=== PATIENT | female | born 1965 | race Caucasian/White ===

== ENCOUNTER → 2018-02-15 14:27 | Outpatient (CLI) | payer OTHER, SELFPAY ==
[2018-02-21 11:59] LABS: HPV Reflexed? NOT INDICATED
== END ==
PROVIDERS: Family Provider Family Medicine; PCP Family Medicine; Visit Provider Obstetrics & Gynecology
DX: Z12.4 Encounter for screening for malignant neoplasm of cervix (principal)
CPT/HCPCS: 88175; G0145

== ENCOUNTER → 2018-10-09 11:32 | Outpatient (CLI) | payer OTHER, SELFPAY ==
--- NOTE | 2018-10-09 11:36 | BI_ITS ---
MAMMOGRAPHY - BILATERAL SCREENING REASON FOR EXAM: Female, 53 years old. Routine annual screening examination. PERTINENT HISTORY: Non-contributory. TECHNIQUE: Digital bilateral breast jian (3D mammographic acquisition) in the CC and MLO projections. 2-D mediolateral oblique (MLO) and craniocaudad (CC) views of both breasts were obtained. CAD: Full Field Digital Mammography with Computer Added Detection was performed. COMPARISON: Comparison is made with prior study dated July 18, 2017. FINDINGS: Breast Composition: There are scattered areas of fibroglandular density. There are no dominant masses or suspicious calcifications. Stable inversion of the right nipple. No other significant abnormalities are identified. There has been no significant change since the prior study. BI/SCREENING MAMM (CAD), BILAT IMPRESSION: Stable bilateral screening mammogram. Yearly follow-up mammogram recommended. (A) ASSESSMENT CATEGORY: BIRADS Category 2: Benign. A letter regarding these results will be sent to the patient by the facility within 30 days. Approximately 10% of breast cancers are not detected by mammography. A normal mammogram should not delay biopsy of a clinically suspicious abnormality. [id number] Electronically Signed: Alfredo Patel MD at 14:02 EST Tel [phone], Service support ,
== END ==
PROVIDERS: Family Provider Family Medicine; PCP Family Medicine; Visit Provider Obstetrics & Gynecology
DX: Z12.31 Encounter for screening mammogram for malignant neoplasm of breast (principal)
CPT/HCPCS: 77063; 77067

== ENCOUNTER → 2019-04-12 | Outpatient (CLI) | payer OTHER, SELFPAY ==
[2019-04-12 11:51] LABS: Hematocrit 39.7 % (37-47); Hemoglobin 12.8 g/dl (12.0-15.0); Mean Corp Hgb Conc 32.2 g/gl (32-36); Mean Corpuscular Hgb 26.4 pg (27.0-32.0); Mean Corpuscular Volume 81.9 fL (81-99); Mean Platelet Vol. 9.6 fl (6.2-12.0); Platelet Count 270 K/mm3 (150-450); RBC Distribution Width CV 14.9 % (11.6-14.6); RBC Distribution Width SD 44.5 fl (35.1-43.9); Red Blood Count 4.85 M/mm3 (4.2-5.4); White Blood Count 7.6 K/mm3 (4.4-11.0)
[2019-04-12 11:54] LABS: Scan Indicated on CBC? Y/N NO
[2019-04-12 12:18] LABS: Hemoglobin A1c 6.2 % (4.2-6.3)
[2019-04-12 12:23] LABS: Anion Gap 6 (5-15); Chloride 105 mmol/L (98-107); Cholesterol 189 mg/dL (200); EST Glomerular Filtration Rate 80 mL/min (>60); Est Glom Filt Rate - Afr Amer 97 mL/min (>60); High Density Lipoprotein 66 mg/dL; Sodium Level 141 mmol/L (136-145); Thyroid Stim Hormone (TSH) 2.05 uIU/mL (0.358-3.74); Triglycerides 80 mg/dL; Very Low Density Lipoprotein 16 mg/dL (5-40)
== END | disposition home or self-care (01) ==
LOC: LAB 11:15
PROVIDERS: Family Provider Family Medicine; PCP Family Medicine; Referring Provider Obstetrics & Gynecology; Visit Provider Obstetrics & Gynecology
DX: E66.01 Morbid (severe) obesity due to excess calories (principal); Z79.899 Other long term (current) drug therapy
CPT/HCPCS: 36415; 80051; 80061; 82565; 83036; 84443; 85027

== ENCOUNTER 2019-05-28 13:10 | Outpatient (RCR) | payer OTHER, SELFPAY | END 2019-05-28 23:59 | disposition home or self-care (01) | LOC: NS 13:10 | PROVIDERS: Family Provider Family Medicine; PCP Family Medicine; Visit Provider Orthopaedic Surgery | DX: E66.01 Morbid (severe) obesity due to excess calories (principal); Z68.43 Body mass index [BMI] 50.0-59.9, adult; Z71.3 Dietary counseling and surveillance | CPT/HCPCS: 97802 ==

== ENCOUNTER → 2019-10-25 12:52 | Outpatient (CLI) | payer OTHER, SELFPAY ==
--- NOTE | 2019-10-25 12:54 | BI_ITS ---
MAMMOGRAPHY - BILATERAL SCREENING 3-D TOMOSYNTHESIS REASON FOR EXAM: Female, 54 years old. PERTINENT HISTORY: No significant family history. TECHNIQUE: 2-D mammograms and 3-D Tomosynthesis of the breast (s) were performed. CAD was performed. COMPARISON: October 09, 2018 FINDINGS: The breast composition is of scattered fibroglandular tissue No dense spiculated masses or suspicious microcalcifications are identified. No architectural distortion is identified. There is no skin thickening or nipple retraction. The densities that are seen in inferior aspect of both breasts are located within the skin or just subcutaneous were present before apparently benign There has been no significant change since the prior study October 09, 2018 BI/SCREEN MAMM (CAD) W/KAYLEY BILAT IMPRESSION: No mammographic signs of malignancy. Routine yearly mammograms recommended. BIRADS 2. FOLLOW UP RECOMMENDATION: Yearly follow up mammogram recommended. (A) Approximately 10% of breast cancers are not detected by mammography. A normal mammogram should not delay biopsy of a clinically suspicious abnormality. Electronically Signed: Arpita Boyle, at 15:48 EST Tel , Service support ,
== END ==
PROVIDERS: Family Provider Family Medicine; PCP Family Medicine; Referring Provider Obstetrics & Gynecology; Visit Provider Obstetrics & Gynecology
DX: Z12.31 Encounter for screening mammogram for malignant neoplasm of breast (principal)
CPT/HCPCS: 77063; 77067

== ENCOUNTER → 2020-02-13 | Outpatient (CLI) | payer OTHER, SELFPAY | END | disposition home or self-care (01) | PROVIDERS: PCP Family Medicine; Visit Provider Family Medicine | DX: B37.9 Candidiasis, unspecified (principal) | CPT/HCPCS: 87070; 87077; 87186; 87205 ==

== ENCOUNTER → 2020-08-12 | Outpatient (CLI) | payer OTHER, SELFPAY ==
[2020-08-18 15:08] LABS: HPV Reflexed? NOT INDICATED
== END | disposition home or self-care (01) ==
LOC: LABSPEC 14:47
PROVIDERS: PCP Family Medicine; Visit Provider Obstetrics & Gynecology
DX: Z12.4 Encounter for screening for malignant neoplasm of cervix (principal)
CPT/HCPCS: 88175; G0145

== ENCOUNTER → 2020-11-25 12:35 | Outpatient (CLI) | payer OTHER, SELFPAY ==
--- NOTE | 2020-11-25 12:37 | BI_ITS ---
MAMMOGRAPHY - BILATERAL SCREENING REASON FOR EXAM: Female, 55 years old. Routine annual screening examination. PERTINENT HISTORY: Non-contributory. TECHNIQUE: Digital bilateral breast kayley (3D mammographic acquisition) in the CC and MLO projections. 2-D mediolateral oblique (MLO) and craniocaudad (CC) views of both breasts were obtained. CAD: Full Field Digital Mammography with Computer Added Detection was performed. COMPARISON: Comparison is made with prior study dated 10/25/2019 and 10/09/2018. FINDINGS: Breast Composition: The breasts are almost entirely fatty. There are no dominant masses or suspicious calcifications. Stable inversion of the right nipple. No other significant abnormalities are identified. There has been no significant change since the prior study. BI/SCREEN MAMM (CAD) W/KAYLEY BILAT IMPRESSION: Stable bilateral screening mammogram. Yearly follow-up mammogram recommended. (A) ASSESSMENT CATEGORY: BIRADS Category 2: Benign. A letter regarding these results will be sent to the patient by the facility within 30 days. Approximately 10% of breast cancers are not detected by mammography. A normal mammogram should not delay biopsy of a clinically suspicious abnormality. [id number] Electronically Signed: Alfredo Patel, at 10:07 EST , Service support ,
== END ==
PROVIDERS: PCP Family Medicine; Referring Provider Obstetrics & Gynecology; Visit Provider Obstetrics & Gynecology
DX: Z12.31 Encounter for screening mammogram for malignant neoplasm of breast (principal)
CPT/HCPCS: 77063; 77067

== ENCOUNTER 2021-12-16 12:47 | Outpatient (CLI) | payer OTHER, SELFPAY ==
[2021-12-16 13:01] VITALS: BP 149/89; PULSE 95; RESP 16; TEMP 36.9; O2SAT 95; BMI 61.5
[2021-12-16 13:38] VITALS: BP 131/81; PULSE 81; RESP 16; TEMP 37.3; O2SAT 96
[2021-12-16 14:34] VITALS: BP 153/95; PULSE 84; RESP 16; TEMP 36.8; O2SAT 96
== END 2021-12-16 23:59 | disposition home or self-care (01) ==
LOC: MS3OUT 12:48 → MS3 12:48
PROVIDERS: PCP Family Medicine; Referring Provider Nurse Practitioner Adult Health; Visit Provider Nurse Practitioner Adult Health
DX: Z23 Encounter for immunization (principal); U07.1 COVID-19
CPT/HCPCS: J7050; M0245; Q0245

== ENCOUNTER 2022-03-18 10:20 | Outpatient (CLI) | payer OTHER, SELFPAY ==
--- NOTE | 2022-03-18 10:22 | BI_ITS ---
MAMMOGRAPHY - BILATERAL SCREENING 3-D TOMOSYNTHESIS REASON FOR EXAM: Female, 56 years old. SCREENING PERTINENT HISTORY: No significant family history. TECHNIQUE: 2-D mammograms and 3-D Tomosynthesis of the breast (s) were performed. CAD was performed. COMPARISON: 11/25/2020 FINDINGS: The breast composition is composed of scattered fibroglandular density. Scattered benign calcifications are seen. No dense spiculated masses or suspicious microcalcifications are identified. No architectural distortion is identified. There is no skin thickening or retraction. There has been no significant change since the prior study. BI/SCRN MAMM (CAD)W/KAYLEY BILAT IMPRESSION: No mammographic signs of malignancy. Routine yearly mammograms recommended. ASSESSMENT CATEGORY: BIRADS Category 1: Negative. A letter regarding these results will be sent to the patient by the facility within 30 days. FOLLOW UP RECOMMENDATION: Yearly follow up mammogram recommended. (A) Approximately 10% of breast cancers are not detected by mammography. A normal mammogram should not delay biopsy of a clinically suspicious abnormality. Electronically Signed: Juan Hoang MD at 13:57 EDT ,
== END 2022-03-18 23:59 | disposition home or self-care (01) ==
PROVIDERS: PCP Family Medicine; Referring Provider Obstetrics & Gynecology; Visit Provider Obstetrics & Gynecology
DX: Z12.31 Encounter for screening mammogram for malignant neoplasm of breast (principal)
CPT/HCPCS: 77063; 77067

== ENCOUNTER → 2022-08-31 | Outpatient (CLI) | payer OTHER, SELFPAY ==
[2022-09-06 16:55] LABS: ALB/GLOB Ratio 0.9 RATIO (0.9-2.4); AST(SGOT) 17 U/L (15-37); Alanine Aminotransfer ALT/SGPT 23 U/L (13-56); Albumin, Serum 3.4 g/dL (3.2-5.0); Alkaline Phosphatase 27 U/L (45-117); Anion Gap 8 (5-15); BUN 20 mg/dL (7-18); BUN/Creat Ratio 26.9 RATIO (10-20); Chloride 106 mmol/L (98-107); Cholesterol 169 mg/dL (200); Creatinine, Serum 0.74 mg/dL (0.55-1.02); EST Glomerular Filtration Rate 86 mL/min (>60); Est Glom Filt Rate - Afr Amer 104 mL/min (>60); Globulin 3.9 g/dL (2.2-4.2); Glucose 46 mg/dL (74-106); High Density Lipoprotein 71 mg/dL; Potassium 4.6 mmol/L (3.5-5.1); Protein, Total 7.3 g/dL (6.4-8.2); Sodium Level 138 mmol/L (136-145); Thyroid Stim Hormone (TSH) 1.86 uIU/mL (0.358-3.74); Triglycerides 75 mg/dL; Very Low Density Lipoprotein 15 mg/dL (5-40)
== END | disposition home or self-care (01) ==
LOC: MTLAB 10:21 → MFPLAB 10:43
PROVIDERS: PCP Family Medicine; Referring Provider Family Medicine; Visit Provider Family Medicine
DX: R73.03 Prediabetes (principal)
CPT/HCPCS: 36415; 80053; 80061; 83036; 84443

== ENCOUNTER → 2023-01-03 | Outpatient (CLI) | payer OTHER, SELFPAY ==
--- NOTE | 2023-01-03 10:45 | MRI_ITS ---
STUDY: MRI LEFT MIDFOOT REASON FOR EXAM: Female, 57 years old. Numbness in foot. TECHNIQUE: Standardized fat and water weighted pulse sequences were obtained in all 3 orthogonal planes. COMPARISON: X-rays of the tibia and fibula dated August 2016. FINDINGS: Moderate arthrosis of the talonavicular joint. Moderate arthrosis of the subtalar joint. Moderate arthrosis of the navicular-cuneiform articulation. Mild arthrosis of the second and third tarsometatarsal articulations. Mild arthrosis of the calcaneocuboid articulation with a small joint effusion. Mild arthrosis of the cuboid-fourth metatarsal and cuboid fifth tarsometatarsal articulations. Normal soft tissues. MRI/Lower Ext/No Jt/w/o IMPRESSION: Diffuse osteoarthritic changes as described. No other abnormality. Electronically Signed: Gal Fulton, at 15:11 EST ,
== END | disposition home or self-care (01) ==
PROVIDERS: PCP Family Medicine; Referring Provider Podiatrist; Visit Provider Podiatrist
DX: M19.072 Primary osteoarthritis, left ankle and foot (principal); M79.672 Pain in left foot; G57.82 Other specified mononeuropathies of left lower limb
CPT/HCPCS: 73718

== ENCOUNTER → 2023-02-20 | Outpatient (CLI) | payer OTHER, SELFPAY ==
[2023-02-24 14:49] LABS: HPV APTIMA, High Risk Negative (Negative)
== END | disposition home or self-care (01) ==
LOC: WOBLAB 11:09
PROVIDERS: PCP Family Medicine; Visit Provider Student in an Organized Health Care Education/Training Program
DX: Z12.4 Encounter for screening for malignant neoplasm of cervix (principal)
CPT/HCPCS: 87624; 88175; G0145

== ENCOUNTER → 2023-04-06 | Outpatient (CLI) | payer OTHER, SELFPAY ==
--- NOTE | 2023-04-06 10:42 | BI_ITS ---
MAMMOGRAPHY - BILATERAL SCREENING REASON FOR EXAM: Female, 57 years old. Routine annual screening examination. PERTINENT HISTORY: Non-contributory. TECHNIQUE: Digital bilateral breast kayley (3D mammographic acquisition) in the CC and MLO projections. 2-D mediolateral oblique (MLO) and craniocaudad (CC) views of both breasts were obtained. CAD: Full Field Digital Mammography with Computer Added Detection was performed. COMPARISON: Comparison is made with prior study March 18, 2022 and November 25, 2020. FINDINGS: Breast Composition: The breasts are almost entirely fatty. There are no dominant masses or suspicious calcifications. Stable inversion of the right nipple. No other significant abnormalities are identified. There has been no significant change since the prior study. BI/SCRN MAMM (CAD)W/KAYLEY BILAT IMPRESSION: Stable bilateral screening mammogram. Yearly follow-up mammogram recommended. (A) ASSESSMENT CATEGORY: BIRADS Category 2: Benign. A letter regarding these results will be sent to the patient by the facility within 30 days. Approximately 10% of breast cancers are not detected by mammography. A normal mammogram should not delay biopsy of a clinically suspicious abnormality. [id number] Electronically Signed: Alfredo Patel MD at 12:12 EDT ,
== END | disposition home or self-care (01) ==
LOC: OPBI 10:41
PROVIDERS: PCP Family Medicine; Referring Provider Student in an Organized Health Care Education/Training Program; Visit Provider Student in an Organized Health Care Education/Training Program
DX: Z12.31 Encounter for screening mammogram for malignant neoplasm of breast (principal)
CPT/HCPCS: 77063; 77067

== ENCOUNTER 2023-08-31 10:07 | Outpatient (CLI) | payer OTHER, SELFPAY ==
[2023-08-31 13:23] LABS: ALB/GLOB Ratio 0.9 RATIO (0.9-2.4); AST(SGOT) 16 U/L (15-37); Alanine Aminotransfer ALT/SGPT 23 U/L (13-56); Albumin, Serum 3.3 g/dL (3.2-5.0); Alkaline Phosphatase 27 U/L (45-117); Anion Gap 8 (5-15); BUN 23 mg/dL (7-18); BUN/Creat Ratio 29.7 RATIO (10-20); Calcium,Total 8.8 mg/dL (8.5-10.1); Chloride 108 mmol/L (98-107); Cholesterol 170 mg/dL (200); Creatinine, Serum 0.77 mg/dL (0.55-1.02); EST Glomerular Filtration Rate 81 mL/min (>60); Est Glom Filt Rate - Afr Amer 98 mL/min (>60); Globulin 3.6 g/dL (2.2-4.2); Glucose 77 mg/dL (74-106); High Density Lipoprotein 54 mg/dL; Potassium 3.6 mmol/L (3.5-5.1); Protein, Total 6.9 g/dL (6.4-8.2); Sodium Level 139 mmol/L (136-145); Thyroid Stim Hormone (TSH) 1.76 uIU/mL (0.358-3.74); Triglycerides 66 mg/dL; Uric Acid 5.4 mg/dL (2.6-6.0); Very Low Density Lipoprotein 13 mg/dL (5-40)
[2023-08-31 14:03] LABS: Hemoglobin A1c 5.4 % (3.8-5.6)
[2023-08-31 14:52] LABS: Microalbumin,Random Urine 40.9 mg/L (NO RANGE EST.); Microalbumin:Creatinine Ratio 20.3 mg/g CRE (<30 mg/g CRE)
== END 2023-08-31 23:59 | disposition home or self-care (01) ==
LOC: MFPLAB 10:08
PROVIDERS: PCP Family Medicine; Visit Provider Family Medicine
DX: Z00.00 Encounter for general adult medical examination without abnormal findings (principal)
CPT/HCPCS: 36415; 80053; 80061; 82043; 82570; 83036; 84443; 84550

== ENCOUNTER → 2024-04-17 | Outpatient (CLI) | payer OTHER, SELFPAY ==
--- NOTE | 2024-04-17 10:32 | BI_ITS ---
MAMMOGRAPHY - BILATERAL SCREENING 3-D TOMOSYNTHESIS REASON FOR EXAM: Female, 58 years old. Screening for breast cancer PERTINENT HISTORY: No significant family history. TECHNIQUE: 2-D mammograms and 3-D Tomosynthesis of the breast (s) were performed. CAD was performed. COMPARISON: 04/06/2023 FINDINGS: The breast composition is composed of scattered fibroglandular density. Scattered benign calcifications are seen. No dense spiculated masses or suspicious microcalcifications are identified. No architectural distortion is identified. There is no skin thickening or retraction. There has been no significant change since the prior study. BI/SCRN MAMM (CAD)W/KAYLEY BILAT IMPRESSION: No mammographic signs of malignancy. Routine yearly mammograms recommended. ASSESSMENT CATEGORY: BIRADS Category 1: Negative. A letter regarding these results will be sent to the patient by the facility within 30 days. FOLLOW UP RECOMMENDATION: Yearly follow up mammogram recommended. (A) Approximately 10% of breast cancers are not detected by mammography. A normal mammogram should not delay biopsy of a clinically suspicious abnormality. Electronically Signed: Juan Hoang MD at 12:07 EDT ,
== END | disposition home or self-care (01) ==
PROVIDERS: PCP Family Medicine; Referring Provider Nurse Practitioner Women's Health; Visit Provider Nurse Practitioner Women's Health
DX: Z12.31 Encounter for screening mammogram for malignant neoplasm of breast (principal); Z78.0 Asymptomatic menopausal state
CPT/HCPCS: 36415; 77063; 77067; 82670; 83001

== ENCOUNTER → 2025-03-24 | Outpatient (CLI) | payer OTHER, SELFPAY ==
[2025-03-24 15:46] LABS: Absolute Lymphocyte Count 1.94 X10^3/uL (0.83-4.51); Absolute Neutrophil Count 4.8 X10^3/uL (2.0-7.7); Basophil# 0.03 X10^3/uL; Basophil% 0.4 % (0-1); Eosinophil# 0.16 X10^3/uL; Eosinophils% 2.2 % (0-5); Hematocrit 42.6 % (37-47); Hemoglobin 13.6 g/dL (12.0-15.0); Lymphocyte # 1.94 X10^3/ul (0.83-4.51); Lymphocyte % 26.4 % (19-41); Mean Corp Hgb Conc 31.9 g/dL (32-36); Mean Corpuscular Volume 87.7 fL (81-99); Monocyte% 5.4 % (0-10); NRBC Flagged by Analyzer 0 % (0-5); Neutrophil # 4.81 X10^3/uL (2.7-7.7); Neutrophil % 65.5 % (47-70); Platelet Count 317 K/mm3 (150-450); RBC Distribution Width CV 13.4 % (11.6-14.6); RBC Distribution Width SD 43.6 fl (35.1-43.9); Red Blood Count 4.86 M/mm3 (4.2-5.4); White Blood Count 7.4 K/mm3 (4.4-11.0)
[2025-03-24 16:23] LABS: ALB/GLOB Ratio 1.3 RATIO (0.9-2.4); AST(SGOT) 14 U/L (<=31); Alanine Aminotransfer ALT/SGPT 10 U/L (<=34); Albumin, Serum 4.1 g/dL (3.5-5.0); Alkaline Phosphatase 35 U/L (35-104); Anion Gap 10 (5-15); BUN 15 mg/dL (4-19); Calcium,Total 9.3 mg/dL (7.6-11.0); Carbon Dioxide 27.3 mmol/L (21.0-32.0); Chloride 102 mmol/L (98-108); EST Glomerular Filtration Rate 100 (>60); Globulin 3.1 g/dL (2.2-4.2); Glucose 88 mg/dL (70-99); Magnesium 2.3 mg/dL (1.5-2.2); Potassium 4.6 mmol/L (3.3-5.1); Protein, Total 7.2 g/dL (5.9-8.4); Sodium Level 140 mmol/L (133-145); Total Bilirubin 0.32 mg/dL (0.00-1.30)
== END | disposition home or self-care (01) ==
LOC: MFPLAB 11:35
PROVIDERS: PCP Family Medicine; Referring Provider Family Medicine; Visit Provider Family Medicine
DX: R00.2 Palpitations (principal)
CPT/HCPCS: 36415; 80053; 83735; 84443; 85025

== ENCOUNTER → 2025-05-19 | Outpatient (CLI) | payer OTHER, SELFPAY ==
--- NOTE | 2025-05-19 15:36 | BI_ITS ---
EXAM: SCRN MAMM (CAD)W/KAYLEY BILAT DATE: 05/19/2025 CLINICAL HISTORY: F, Age 59 y/o , SCREENING FOR BREAST CANCER BREAST CANCER RISK ASSESSMENT: Na TECHNIQUE: SCRN MAMM (CAD)W/KAYLEY BILAT COMPARISON: Prior exam(s) were compared FINDINGS: TISSUE DENSITY: The breast tissue is composed of scattered areas of fibroglandular density. Bilateral Breast Mammographic Findings: No suspicious masses, calcifications or other abnormalities are identified. BI/SCRN MAMM (CAD)W/KAYLEY BILAT IMPRESSION: No mammographic evidence of malignancy in either breast OVERALL FINAL ASSESSMENT BI-RADS 1: NEGATIVE. RECOMMEND ANNUAL MAMMOGRAPHIC SCREENING. RECOMMENDATION: Routine annual follow-up in 1 Year A letter with findings and recommendations will be mailed to the patient. Reading Location: [id number]
== END | disposition home or self-care (01) ==
PROVIDERS: PCP Family Medicine; Referring Provider Nurse Practitioner Women's Health; Visit Provider Nurse Practitioner Women's Health
DX: Z12.31 Encounter for screening mammogram for malignant neoplasm of breast (principal)
CPT/HCPCS: 77063; 77067

== ENCOUNTER → 2025-08-05 | Outpatient (CLI) | payer OTHER, SELFPAY ==
[2025-08-05 14:27] LABS: Mucous, Urine 0 SEEN /hpf (<or=2+)
[2025-08-05 17:40] LABS: Color, Urine Yellow (Yellow); Glucose, Dipstick Normal (Normal); Ketone-Dipstick Negative (Negative); Leukocyte Esterase-Dipstick Negative /ul (Negative); Nitrite-Dipstick Negative (Negative); Occult Blood-Urine 150 /ul (Negative); Protein-Dipstick 15 mg/dl (Negative); Specific Gravity, Urine 1.020 (1.002-1.030); Urine Bilirubin Dipstick Negative (Negative)
[2025-08-05 21:24] LABS: Calcium Oxalate Crystals Ur 2+ /hpf (<or=2+)
[2025-08-05 21:26] LABS: Red Blood Cells-Urine 0-5 SEEN /hpf (0-5); Squamous Epithelial Cells - UA 0-5 SEEN /hpf (5-10)
== END | disposition home or self-care (01) ==
LOC: LABSPEC 14:26
PROVIDERS: PCP Family Medicine; Referring Provider Family Medicine; Visit Provider Family Medicine
DX: R35.0 Frequency of micturition (principal)
CPT/HCPCS: 81001; 87077; 87086; 87088; 87186

== ENCOUNTER → 2025-10-30 | Outpatient (CLI) | payer OTHER, SELFPAY ==
--- NOTE | 2025-10-30 14:06 | US_ITS ---
PROCEDURE: PELVIC W/ TRANSVAGINAL 10/30/2025 REASON FOR EXAM: RIGHT PELVIC PAIN. TECHNIQUE: Procedure Code: [id number] Modality: US Procedure: PELVIC W/ TRANSVAGINAL COMPARISON: None. FINDINGS: ENDOMETRIUM: Normal thickness of 3.3 mm. UTERUS: Normal size and contour measuring 7.2 x 3.8 x 4.4 cm, with heterogeneous parenchyma. No fibroid detected. CERVIX: Normal size and contour. Small cervical nabothian cysts. RIGHT OVARY: Normal size and appearance measuring 3.3 x 2.3 x 2.2 cm (volume 8.9 mL). Normal follicles. Normal blood flow. No adnexal mass. LEFT OVARY: Surgically absent. FREE FLUID: No free fluid. URINARY BLADDER: Normal morphology with volume of 124 mL. US/Pelvic w/ Transvaginal IMPRESSION: Heterogeneous uterus. No discrete lesion seen. Reading Location: [id number]
--- OUTSIDE RECORDS SUMMARY | 2025-10-30 17:54 | XMS RPT_ITS | CCD ---
Author Organization [facility] Care Team Providers Care Software Development Engineer Name Role Phone Dr. Patrice Holland Primary Care Provider Dr. Patrice Holland Referring Provider VINCE Florentino Attending Provider Edna Garcia MD, Geovany Unavailable Unavailab sudha Bishop Jr, MD, Geovany Unavailable Unavailab sudha Bishop Jr, MD, Geovany Unavailable Unavailab sudha Bishop Jr, MD, Geovany Unavailable Unavailab sudha Bishop Jr, MD, Geovany Unavailable Unavailab sudha Bishop Jr, MD, Geovany Unavailable Unavailab sduha Bishop Jr, MD, Geovany Unavailable Unavailab sudha Bishop Jr, MD, Geovany Unavailable Unavailab sudha Bishop Jr, MD, Geovany Unavailable Unavailab sudha Bishop Jr, MD, Geovany Unavailable Unavailab sudha Bishop Jr, MD, Geovany Unavailable Unavailab sudha Bishop Jr, MD, Geovany Unavailable Unavailab sudha Bishop Jr, MD, Geovany Unavailable Unavailab sudha Bishop Jr, MD, Geovany Unavailable Unavailab sudha Bishop Jr, MD, Geovany Unavailable Unavailab sudha Bishop Jr, MD, Geovany Unavailable Unavailab sudha Bishop Jr, MD, Geovany Unavailable Unavailab sudha Bishop Jr, MD, Geovany Unavailable Unavailab Subhash Burks PA-C Unavailable Unavailable Edna Garcia MD, Geovany Unavailable Unavailab sudha Bishop Jr, MD, Geovany Unavailable Unavailab sudha Bishop Jr, MD, Geovany Unavailable Unavailab sudha Bishop Jr, MD, Geovany Unavailable Unavailab sudha Bishop Jr, MD, Geovany Unavailable Unavailab sudha Bishop Jr, MD, Geovany Unavailable Unavailab sudha Bishop Jr, MD, Geovany Unavailable Unavailab sudha Bishop Jr, MD, Geovany Unavailable Unavailab sudha Bishop Jr, MD, Geovany Unavailable Unavailab sudha Bishop Jr, MD, Geoavny Unavailable Unavailab sudha Bishop Jr, MD, Geovany Unavailable Unavailab sudha Bishop Jr, MD, Geovany Unavailable Unavailab sudha Bishop Jr, MD, Geovany Unavailable Unavailab sudha Bishop Jr, MD, Geovany Unavailable Unavailab sudha Bishop Jr, MD, Geovany Unavailable Unavailab sudha Holland MD, Dr. Ibrahim Primary Care Provider [phone] Skyler PAGE, Dr. Ibrahim Attending Provider Dr. Patrice Holland MD Referring Provider [phone] Caspar SILK SCREEN REPAIRER-C, Jocy Attending Provider Roxane SILK SCREEN REPAIRER-C, Jocy Referring Provider Edna Jr, Geovany V Referring Unavailabl e Holland, Aptrice Primary Care Unavailable Landy Bowman Attending Unavailable Edna Jr, Geovany V Attending Unavailabl e Edna Jr, Geovany V Referring Unavailabl e Holland, Patrice Primary Care Unavailable Edna Jr, Geovany V Attending Unavailabl e Edna Jr, Geovany V Referring Unavailabl e Holland, Patrice Primary Care Unavailable Marlon Luna Attending Unavailable Edna Jr, Geovany V Referring Unavailabl e Holland, Patrice Primary Care Unavailable Skyler PAGE, Dr. Ibrahim Primary Care Physician Dr. Patrice Holland MD Referring Provider [phone] Roxane SILK SCREEN REPAIRER-C, Jocy Attending Physician Dr. Riley Yao MD Attending Physician [phone] Riley Yao MD Referring Provider [phone] Riley Yao Attending Unavailable Riley Yao Referring Unavailable Holland, Patrice Primary Care Unavailable Holland, Patrice Primary Care Unavailable Holland, Patrice Attending Unavailable Holland, Patrice Referring Unavailable Caspar SILK SCREEN REPAIRER, Jocy Attending Unavailable Roxane SILK SCREEN REPAIRER, Jocy Referring Unavailable Holland, Patrice Primary Care Unavailable Holland, Patrice Referring Unavailable Caspar SILK SCREEN REPAIRER, Jocy Attending Unavailable Holland, Patrice Primary Care Unavailable Edna Jr, Geovany V Attending Unavailabl e Holland, Patrice Primary Care Unavailable Edna Jr, Geovany V Attending Unavailabl e Edna Jr, Geovany V Referring Unavailabl e Holland, Patrice Primary Care Unavailable Edna Jr, Geovany V Attending Unavailabl e Edna Jr, Geovany V Referring Unavailabl e Holland, Patrice Primary Care Unavailable Esdras Mariscal Attending Unavailable Edna Jr, Geovany V Referring Unavailabl e Holland, Patrice Primary Care Unavailable Subhash Posada Attending Unavailable Edna Jr, Geovany V Referring Unavailabl e Holland, Patrice Primary Care Unavailable Edna Jr, Geovany V Attending Unavailabl e Edna Jr, Geovany V Referring Unavailabl e Holland, Patrice Primary Care Unavailable Subhash Posada Attending Unavailable Edna Jr, Geovany V Referring Unavailabl e Holland, Patrice Primary Care Unavailable Edna Jr, Geovany V Attending Unavailabl e Edna Jr, Geovany V Referring Unavailabl e Holland, Patrice Primary Care Unavailable Edna Jr, Geovany V Attending Unavailabl e Edna Jr, Geovany V Referring Unavailabl e Holland, Patrice Primary Care Unavailable Edna Jr, Geovany V Attending Unavailabl e Edna Jr, Geovany V Referring Unavailabl e Holland, Patrice Primary Care Unavailable Edna Jr, Geovany V Attending Unavailabl e Edna Jr, Geovany V Referring Unavailabl e Holland, Patrice Primary Care Unavailable Edna Jr, Geovany V Attending Unavailabl e Edna Jr, Geovany V Referring Unavailabl e Holland, Patrice Primary Care Unavailable Edna Jr, Geovany V Attending Unavailabl e Edna Jr, Geovany V Referring Unavailabl e Holland, Patrice Primary Care Unavailable Subhash Posada Attending Unavailable Edna Jr, Geovany V Referring Unavailabl e Holland, Patrice Primary Care Unavailable Edna Jr, Geovany V Attending Unavailabl e Edna Jr, Geovany V Referring Unavailabl e Holland, Patrice Primary Care Unavailable Subhash Posada Attending Unavailable Edna Jr, Geovany V Referring Unavailabl e Holland, Patrice Primary Care Unavailable Edna Jr, Geovany V Attending Unavailabl e Edna Jr, Geovany V Referring Tito Holland Patrice [facility] Unavailable Geovany Bishop Jr, V Attending Geovany Mckinley Jr, V Referring Tito Holland Patrice Primary [facility] Unavailable Geovany Bishop Jr, V Attending Tito Holland Patrice [facility] Unavailable Subhash Posada PA-C Unavailable Unavailable Medications Current Medications Medication Drug Class(es) Dates Sig (Normalized) Sig (Original) 0.75 ML semaglutide 3.2 MG/ML Auto-Injector [Wegovy] (1 source) Start: 06-05-2025 Wegovy 2.4 mg/0.75 mL subcutaneous pen injector INJECT 2.2 ONCE A WEEK ON SUNDAYS. LAST DOSE 06/01/2025 - Active acetaminophen 500 mg oral tablet (20 sources) Start: 06-25-2025 Acetaminophen Extra Strength 500 mg tablet 2 tablets q 8 hrs orally for 7 days - Active Take as needed after 7 days Start: 08-16-2024 Acetaminophen Extra Strength 500 mg tablet 2 tablets q 8 hrs orally for 7 days - Active Take as needed after 7 days Start: 07-31-2024 take 2-4 tablets by mouth once daily in the morning as needed tylenol ORAL TAKE 2-4 TABLETS DAILY AM, NEEDED - Active Start: 04-15-2024 take 1 capsule by [facility] once as needed Comment on above: Take as needed after 7 days amLODIPine 5 mg oral tablet (20 sources) Dihydropyridine Calcium Channel Andi Start: take 1 tablet by mouth once daily aspirin 81 mg delayed release oral tablet (20 sources) Platelet Aggregation Inhibitor, Nonsteroidal Anti-inflammatory Drug Start: aspirin 81 mg tablet,delayed release one tablet twice a day for DVT - Active Take upon completion of Xarelto Start: 08-16-2024 aspirin 81 mg tablet,delayed release one tablet twice a day for DVT - Active Take upon completion of Xarelto Comment on above: Take upon completion of Xarelto cephalexin 500 mg oral capsule (20 sources) Cephalosporin Antibacterial Start: 07-30-202 5 take 1 capsule by mouth every eight hours cephalexin 500 mg capsule Take one capsule by mouth every eight hours - Active Take 1 every 8 hours for 3 doses Start: 08-16-2024 take 1 capsule by [facility] every eight hours cephalexin 500 mg capsule Take one capsule by mouth every eight hours - Active Take 1 every 8 hours for 3 doses Comment on above: Take 1 every 8 hours for 3 doses diclofenac sodium 0.01 mg/mg topical gel (1 source) Nonsteroidal Anti-inflammatory Drug Start: 06-05-20 Voltaren Arthritis Pain 1 % topical gel NEEDED - Active 0.4 ml enoxaparin sodium 100 mg/ml prefilled syringe (20 sources) Low Molecular Weight Heparin Start: 06-26-20 inject 0.4 mL by subcutaneous injection once daily enoxaparin 40 mg/0.4 mL subcutaneous syringe inject 0.4 milliliter by subcutaneous route every day 40 MG - Active Start: 08-21-2024 inject 0.4 mL by sub cutaneous injection once daily Lovenox 40 mg/0.4 mL subcutaneous syringe inject 0.4 milliliter by subcutaneous route every day 40 MG - Active famotidine 10 mg oral tablet (1 source) Histamine-2 Receptor Antagonist fiber 500 mg oral tablet (1 source) Start: 06-05-20 fiber (UD) 500mg ORAL TAKE TWO GUMMIES IN THE AM - Active magnesium hydroxide 80 mg/ml oral suspension (20 sources) Start: 08-12-20 Dulcolax (magnesium hydroxide) 400 mg/5 mL oral suspension TAKE ORALLY NEEDED - Active medroxyPROGESTERone acetate 10 mg oral tablet (20 sources) Progestin Start: 04-22-20 medroxyprogesterone 10 mg tablet TAKE 10 TABLETS EVERY 3 MONTHS. LAST DOSE 04/27/2025 - Active Start: 07-31-2024 medroxyprogest erone 10 mg tablet TAKE 10 TABLETS THE FIRST 10 DAYS OF EVERY MONTH, AM - Active Start: 04-15-2024 End: 04-22-2025 Medroxyprogesterone 10 mg ta blet Discontinued 10 mg PO .COMPLEX 30 June 15, 2024 7:25pm April 22, 2025 11:26am 10 mg orally first 10 days each month; Start: 12-16-2021 End: 04-15-2024 take 1 tablet by mouth once daily Medroxyprogesterone 10 mg tablet Discontinued 10 mg PO DAILY December 16, 2021 1:00am April 15, 2024 11:38am menthol 70 mg/ml topical foam (1 source) Start: 06-05-2025 Biofreeze (men thol) 7 % topical foam NEEDED - Active 24 hr metoprolol succinate 25 mg extended release oral tablet (1 source) beta-Adrenergic Andi Start: 06-05-2025 metoprolol succinate ER 25 mg tablet,extended release 24 hr TAKE HALF A TABLET AT NIGHT - Active metroNIDAZOLE 0.01 mg/mg topical gel (7 sources) Nitroimidazole Antimicrobial Start: 06-05-2025 metronidazole 1 % topical gel NEEDED - Active Start: 04-22-2025 Start: 04-15-2024 End: 04-22-2025 Metronidazole 1 % gel Discon tinued 1 NMA TOPICAL DAILY April 15, 2024 12:00am April 22, 2025 11:26am Multivitamin preparation (20 sources) Start: 06-05-2025 multivitamin G Ummies ORAL NEEDED - Active Start: 06-05-2025 multivitamin ( UD) GUmmies ORAL NEEDED - Active Start: 07-31-2024 multivitamin G Ummies ORAL TAKE 1 GUMMY DAILY AM - Active ondansetron 4 mg oral tablet (20 sources) Serotonin-3 Receptor Antagonist Start: 06-25-2025 ondansetron HCl 4 mg tablet 1T every 8 hours prn for nausea/vomiting - Active Start: 08-16-2024 ondansetron HC l 4 mg tablet 1T every 8 hours prn for nausea/vomiting - Active oxyCODONE hydrochloride 5 mg oral tablet (20 sources) Opioid Agonist Start: 06-26-2025 take 1-2 tablets by mouth every four to six hours as needed for pain oxycodone 5 mg tablet 1-2 po q 4-6 hrs prn pain as needed - Active Z96.60 - 7 Day Supply Start: 08-16-2024 End: 11-12-2024 take 1-2 tablets by mouth every four to six hours as needed for pain oxycodone 5 mg tablet take 1-2 tablets by oral route every 4 - 6 hours as needed for severe pain - No Longer Active 7 day [id number] Comment on above: 7 day [id number] 7 Day Supply - Pt re fuses Narcan Z96.60 - 7 Day Suppl y rivaroxaban 10 mg oral tablet (4 sources) Factor Xa Inhibitor Start: 08-16-20 inject 1 mL by subcutaneous injection once daily Xarelto 10 mg tablet 1 tablet daily for 14 days - Active If insurance does not cover or other patient barriers exist, then change to Lovenox 40mg/0.4 ml mg subcutaneous injection daily dispense number 14. Comment on above: If insurance does no t cover or other patient barriers exist, then change to Lovenox 40mg/0.4 ml mg subcutaneous injection daily dispense number 14. Semaglutide (Weight Loss) (3 sources) Start: 04-15-20 Start: 04-15-2024 Semaglutide (W eight Loss) 1 mg/0.5 mL pen injector Active 1 mg SC EVERY WEEK April 15, 2024 12:00am administer weeks 9 through 12 of therapy traMADol hydrochloride 50 mg oral tablet (20 sources) Opioid Agonist Start: 06-26-2025 take 1-2 tablets by mouth every six hours as needed for pain tramadol 50 mg tablet 1-2 po q 6 hours prn pain as needed - Active Z96.60 - 7 Day Supply Start: 08-16-2024 End: 10-16-2024 take 1-2 tablets by mouth every six hours as needed for pain tramadol 50 mg tablet 1-2 po q 6 hours prn pain - Active 7 Day Supply - Pt refuses Narcan Comment on above: 7 Day Supply - Pt re fuses Narcan 7 day [id number] Z96.60 - 7 Day Suppl y Tylenol Extra Strength (UD) ORAL (1 source) Start: 06-05-2025 Tylenol Extra Strength (UD) ORAL TAKE 4 IN THE AFTERNOON - Active Completed/Discontinued Medications Medication Drug Class(es) Dates Sig (Normalized) Sig (Original) celecoxib 200 mg oral capsule (20 sources) Nonsteroidal Anti-inflammatory Drug Start: 06-25-2025 take 1 capsule by mouth once daily celecoxib 200 mg capsule Do not take until Xarelto therapy completed. Then take one capsule by mouth daily - Active If Prior Auth required do not fill Start: 08-16-2024 take 1 capsule by mo ut once daily celecoxib 200 mg capsule Take one capsule by mouth daily. Do Not Start until Xarelto therapy completed. - Active If Prior Auth required do not fill Comment on above: If Prior Auth requir ed do not fill ibuprofen 200 mg oral tablet (20 sources) Nonsteroidal Anti-inflammatory Drug Start: End: take 1 tablet by mouth every six hours as needed Ibuprofen 200 mg tablet Discontinued 200 mg PO EVERY 6 HOURS as needed April 15, 2024 12:00am April 22, 2025 11:18am semaglutide (weight loss) (U D) (unknown strength) (20 sources) semaglutide (weight loss) (u nknown strength) (3 sources) Problems Active Problems Problem Classification Problem Date Documented Date Episodic/Chronic Diabetes mellitus without complication (20 sources) Prediabetes Episodic Endometriosis (3 sources) Endometriosis (clinical); Translations: [Endometriosis, unspecified] 04-15-2024 Chronic Essential hypertension (20 sources) Essential (primary) hypertension; Translations: [Hypertensive disorder] Chronic Genitourinary symptoms and ill-defined conditions (1 source) Frequency of micturition; Translations: [Frequency of micturition] Onset: 08-13-2025 Episodic Osteoarthritis (20 sources) Bilateral primary osteoarthritis of knee; Translations: [Unilateral primary osteoarthritis, right knee] Onset: 07-22-2024 Chronic Other connective tissue disease (20 sources) Presence of left artificial knee joint; Translations: [Presence of left artificial knee joint] Onset: 07-19-2024 Chronic Other connective tissue disease (20 sources) Presence of right artificial knee joint Onset: 07-19-2024 Chronic Other nutritional; endocrine; and metabolic disorders (20 sources) Morbid (severe) obesity due to excess calories; Translations: [Morbid (severe) obesity due to excess calories] Onset: 06-26-2025 Chronic Other nutritional; endocrine; and metabolic disorders (3 sources) Body mass index 40+ - severely obese 12-14-2021 Chronic Other nutritional; endocrine; and metabolic disorders (5 sources) Body mass index (BMI) 50.0-59.9, adult; Translations: [Body mass index [BMI] 50.0-59.9, adult] Onset: 06-26-2025 Chronic Other screening for suspected conditions (not mental disorders or infectious disease) (1 source) Encounter for screening mammogram for malignant neoplasm of breast; Translations: [Encounter for screening mammogram for malignant neoplasm of breast] Onset: 05-23-2025 Episodic Residual codes; unclassified (20 sources) Other specified personal risk factors, not elsewhere classified Episodic Residual codes; unclassified (20 sources) Other specified health status Episodic Residual codes; unclassified (3 sources) Postmenopausal state; Translations: [Asymptomatic menopausal state] 04-15-2024 Episodic Comment on above: provera 10 days ea [facility]. Unclassified (3 sources) Body mass index 40+ - severely obese; Translations: [Body mass index (BMI) greater than 40] 12-14-2021 Varicose veins of lower extremity (20 sources) Varicose veins of bilateral lower extremities with other complications Episodic Viral infection (7 sources) Disease caused by 2019-nCoV; Translations: [COVID-19] Episodic Past or Other Problems Problem Classification Problem Date Documented Da te Episodic/Chronic Cardiac dysrhythmias (1 source) Palpitations; Translations: [Palpitations] Onset: 03-27-2025 Episodic Other aftercare (20 sources) Encounter for removal of sutures Onset: 09-05-2024 Episodic Results Test Name Value Interpretation Reference Range Facility Urine Cultureon 08-08-2025 [facility] Order Date: 08/04/25 Order Info: 630-4 - [facility] Below infection level. Mixed Gram Positive Organisms [place] Count 1000-10,000 [facility] Mixed contaminants. Submit a new specimen if indicated. Normal [facility] Comment on above: Performed By: #### M 100.2200, L400.0001 #### [facility] [place], [address] Amorphous sediment detection in urine sediment by light microscopyOrdered By: Riley Yao on 08-05-2025 Amorphous sediment LM Ql (Urine sed) 1+ [facility] Bilirubin Test strip Ql (U)O rdered By: Riley Yao on 08-05-2025 Bilirubin Ql (U) Negative Negative [facility] Calcium oxalate crystals det ection in urine sediment by light microscopyOrdered By: Riley Yao on 08-05-2025 Calcium oxalate crystals LM Ql (Urine sed) 2+ /hpf [facility] Ketones Test strip Ql (U)Ord ered By: Riley Yao on 08-05-2025 Ketones Ql (U) Negative Negative [facility] Microscopic analysis of urin e for red blood cells (RBC)Ordered By: Riley Yao on 08-05-2025 Microscopic analysis of urine for red blood cells (RBC) 0-5 SEEN /hpf 0-5 [facility] Mucus LM Ql (Urine sed)Order ed By: Riley Yao on 08-05-2025 Mucus Ql (Urine sed) 0 SEEN /hpf [facility] Nitrite Test strip Ql (U)Ord ered By: Riley Yao on 08-05-2025 Nitrite Ql (U) Negative Negative [facility] Protein Test strip Ql (U)Ord ered By: Riley Yao on 08-05-2025 Protein Ql (U) 15 mg/dl High Negative [facility] Squamous epithelial cells de tection in urine sediment by light microscopyOrdered By: Riley Yao on 08-05-2025 Epithelial cells.squamous LM Ql (Urine sed) 0-5 SEEN /hpf 5-10 [facility] Urinalysis, Completeon 08-05 AMORPHOUS 1+ Normal [facility] Comment on above: Order Comment: Order Date: 08/04/25 Order Info: [id number] - [facility] DATA PROCESSING EQUIPMENT REPAIRER TO SPECIFY Performed By: #### M 100.2200, [id number] #### [facility] [address] [place], [address] EPI,SQUAMOUS 0-5 SEEN Normal 5-10 [facility] Comment on above: Order Comment: Order Date: 08/04/25 Order Info: [id number] - [facility] DATA PROCESSING EQUIPMENT REPAIRER TO SPECIFY Performed By: #### M 100.2200, [id number] #### [facility] [address] [place], [address] RBC 0-5 SEEN Normal 0-5 [facility] Comment on above: Order Comment: Order Date: 08/04/25 Order Info: [address] [place] [address] DATA PROCESSING EQUIPMENT REPAIRER TO SPECIFY Performed By: #### M 100.2200, [id number] #### [facility] [address] [place], [address] WBC 0-5 SEEN Normal 0-5 [facility] Comment on above: Order Comment: Order Date: 08/04/25 Order Info: [address] [place] [address] DATA PROCESSING EQUIPMENT REPAIRER TO SPECIFY Performed By: #### M 100.2200, [id number] #### [facility] [address] [place], [address] CA OX CRYSTAL 2+ /hpf Normal [facility] Comment on above: Order Comment: Order Date: 08/04/25 Order Info: [address] [place] [address] DATA PROCESSING EQUIPMENT REPAIRER TO SPECIFY Performed By: #### M 100.2200, [id number] #### [facility] [address] [place], [address] BACTERIA 0 SEEN Normal None Seen [facility] Comment on above: Order Comment: Order Date: 08/04/25 Order Info: [address] [place] [address] DATA PROCESSING EQUIPMENT REPAIRER TO SPECIFY Performed By: #### M 100.2200, [id number] #### [facility] [address] [place], [address] Mucus Ql (Urine sed) 0 SEEN Normal [facility] Comment on above: Order Comment: Order Date: 08/04/25 Order Info: [id number] - [facility] DATA PROCESSING EQUIPMENT REPAIRER TO SPECIFY Performed By: #### M 100.2200, [id number] #### [facility] [address] [place], [address] Urine clarityOrdered By: Gianna Yao on 08-05-2025 Clarity (U) Clear Clear [facility] Urine color determinationOrd ered By: Riley Yao on 08-05-2025 Color (U) Yellow Yellow [facility] Urine cultureOrdered By: Gianna Yao on 08-05-2025 Bacteria identified Cx Nom (U) Positive Abnormal [facility] Urine glucose detectionOrder ed By: Riley Yao on 08-05-2025 Glucose Ql (U) Normal mg/dl Normal [facility] Urine leukocyte esterase det ection by dipstickOrdered By: Riley Yao on 08-05-2025 Leukocyte esterase Test strip Ql (U) Negative Negative [facility] Urine pHOrdered By: Riley baxter on 08-05-2025 pH (U) 6.0 [pH] 5.0 - 8.0 [facility] Urine sediment bacteria coun t by microscopy (number/high power field)Ordered By: Riley Yao on 08-05-2025 Bacteria LM.HPF (Urine sed) [#/Area] 0 /[HPF] None Seen [facility] Urine specific gravity measu rementOrdered By: Riley Yao on 08-05-2025 Specific gravity (U) [Rel density] 1.020 1.002-1.030 [facility] Urine urobilinogen measureme ntOrdered By: Riley Yao on 08-05-2025 Urobilinogen Ql (U) Normal mg/dl Normal [facility] White blood cell countOrdere d By: Riley Yao on 08-05-2025 White blood cell count 0-5 SEEN /hpf 0-5 [facility] Urine Cultureon 07-27-2025 [facility] Klebsiella pneumoniae sp pneum [place] Count 80,000-100,000 Klebsiella pneumoniae sp pneum: REACTION Ampicillin Islt CHRIS Ampicillin+Sulbac Islt CHRIS 4 S Cefepime Islt CHRIS <=0.12 S cefTRIAXone Islt CHRIS <=0.25 S Ciprofloxacin Islt CHRIS <=0.06 S B-Lactamase Extended Susc Islt NEG Gentamicin Islt CHRIS <=1 S levoFLOXacin Islt CHRIS <=0.12 S Meropenem Islt CHRIS <=0.25 S Nitrofurantoin Islt CHRIS 64 I Pip+Tazo Islt CHRIS <=4 S TMP SMX Islt CHRIS <=20 S Normal [facility] Comment on above: Performed By: #### M 100.2200 #### [facility] [address] [place], [place], [id number] Urine cultureOrdered By: Gianna Yao on 07-25-2025 Bacteria identified Cx Nom (U) Klebsiella pneumoniae sp pneum Abnormal [facility] CBC W Differential panel, pr thod unspecified (Bld)on 06-05-2025 Basophils (Bld) [#/Vol] 0.04 10*3/uL Normal 0.00-0.20 [facility] Comment on above: Performed By: #### 6 9742-5 #### [facility] [address] [place] [address] Basophils/100 WBC (Bld) 0.5 % Normal 0.0-2.0 [facility] Comment on above: Performed By: #### 6 9742-5 #### [facility] [address] [place] [address] Eosinophils (Bld) [#/Vol] 0.11 10*3/uL Normal 0.00-0.70 [facility] Comment on above: Performed By: #### 6 9742-5 #### [facility] [address] [place] [address] 17815 Eosinophils/100 WBC (Bld) 1.5 % Normal 0.0-7.0 [facility] Comment on above: Performed By: #### 6 9742-5 #### [facility] [address] [place] [address] 38289 Erythrocyte distribution width (RBC) [Ratio] 13.6 % Normal 11.0-14.8 [facility] Comment on above: Performed By: #### 6 9742-5 #### [facility] [address] [place] [address] 42612 Hematocrit (Bld) [Volume fraction] 44.7 % Normal 34.3-47.9 [facility] Comment on above: Performed By: #### 6 9742-5 #### [facility] [address] [place] [address] 34737 Hemoglobin (Bld) [Mass/Vol] 14.2 g/dL Normal 12.0-16.0 [facility] Comment on above: Performed By: #### 6 9742-5 #### [facility] [address] [place] [address] 05024 Immature granulocytes (Bld) [#/Vol] 0.02 10*3/uL Normal 0.00-0.10 [facility] Comment on above: Performed By: #### 6 9742-5 #### [facility] [address] [place] [address] 56759 Immature granulocytes/100 WBC (Bld) 0.3 % Normal 0.0-1.2 [facility] Comment on above: Performed By: #### 6 9742-5 #### [facility] [address] [place] [address] 34212 Lymphocytes (Bld) [#/Vol] 1.62 10*3/uL Normal 1.00-4.80 [facility] Comment on above: Performed By: #### 6 9742-5 #### [facility] [address] [place] [address] 31921 Lymphocytes/100 WBC (Bld) 21.9 % Normal 17.9-49.6 [facility] Comment on above: Performed By: #### 6 9742-5 #### [facility] [address] [place] [address] 53138 MCH 27.2 pcg Normal 27.0-34.0 [facility] Comment on above: Performed By: #### 6 9742-5 #### [facility] [address] [place] [address] MCHC (RBC) [Mass/Vol] 31.8 g/dL Normal 30.8-35.3 [facility] Comment on above: Performed By: #### 6 9742-5 #### [facility] [address] [place] [address] 45520 MCV (RBC) [Entitic vol] 85.6 fL Normal 80.0-97.0 [facility] Comment on above: Performed By: #### 6 9742-5 #### [facility] [address] [place] [address] 61747 Monocytes (Bld) [#/Vol] 0.42 10*3/uL Normal 0.00-0.90 [facility] Comment on above: Performed By: #### 6 9742-5 #### [facility] [address] [place] [address] 52275 Monocytes/100 WBC (Bld) 5.7 % Normal 0.0-12.0 [facility] Comment on above: Performed By: #### 6 9742-5 #### [facility] [address] [place] [address] 37398 Neutrophils Absolute 5.20 K/mcL Normal 1.80-7.70 [facility] Comment on above: Performed By: #### 6 9742-5 #### [facility] [address] [place] [address] 66898 Neutrophils/100 WBC (Bld) 70.1 % Normal 38.1-75.5 [facility] Comment on above: Performed By: #### 6 9742-5 #### [facility] [address] [place] [address] 33638 Platelet mean volume (Bld) [Entitic vol] 10.0 fL Normal 6.2-12.1 [facility] Comment on above: Performed By: #### 6 9742-5 #### [facility] [address] [place] [address] Platelets (Bld) [#/Vol] 304 10*3/uL Normal 142-424 [facility] Comment on above: Performed By: #### 6 9742-5 #### [facility] [address] [place] [address] 26132 RBC (Bld) [#/Vol] 5.22 10*6/uL Normal 3.74-5.34 [facility] Comment on above: Performed By: #### 6 9742-5 #### [facility] [address] [place] [address] 87469 WBC (Bld) [#/Vol] 7.4 10*3/uL Normal 4.6-10.2 [facility] Comment on above: Performed By: #### 6 9742-5 #### [facility] [address] [place] [address] 07618 Comprehensive metabolic 2000 panelon 06-05-2025 Albumin [Mass/Vol] 4.3 g/dL Normal 3.5-4.8 [facility] Comment on above: Performed By: #### 2 4323-8 #### [facility] [address] [place] [address] ALP [Catalytic activity/Vol] 32 U/L Normal 32-91 [facility] Comment on above: Performed By: #### 2 4323-8 #### [facility] [address] [place] [address] ALT [Catalytic activity/Vol] 14 U/L Normal 7-52 [facility] Comment on above: Performed By: #### 2 4323-8 #### [facility] [address] [place] [address] Anion gap [Moles/Vol] 11 mmol/L Normal 6-18 [facility] Comment on above: Performed By: #### 2 4323-8 #### [facility] [address] [facility] [address] AST [Catalytic activity/Vol] 13 U/L Low 15-41 [facility] Comment on above: Performed By: #### 2 4323-8 #### [facility] [address] [facility] [place] [address] Bilirubin [Mass/Vol] 0.5 mg/dL Normal 0.3-1.2 [facility] Comment on above: Performed By: #### 2 4323-8 #### [facility] [address] [place] [address] Calcium [Mass/Vol] 9.4 mg/dL Normal 8.9-10.3 [facility] Comment on above: Performed By: #### 2 4323-8 #### [facility] [address] [place] [address] Chloride [Moles/Vol] 105 mmol/L Normal 98-107 [facility] Comment on above: Performed By: #### 2 4323-8 #### [facility] [address] [facility] [place] [address] CO2 [Moles/Vol] 24 mmol/L Normal 22-32 [facility] Comment on above: Performed By: #### 2 4323-8 #### [facility] [address] [place] [address] Creatinine [Mass/Vol] 0.65 mg/dL Normal 0.60-1.30 [facility] Comment on above: Performed By: #### 2 4323-8 #### [facility] [address] [facility] [place] [address] GFR/1.73 sq M.predicted among non-blacks MDRD (S/P/Bld) [Vol rate/Area] 102 mL/min/{1.73_m2} Normal >=60 [facility] Comment on above: Result Comment: Calc ulation based on the Chronic Kidney Disease Epidemiology Collaboration (CKD-EPI) equation refit without adjustment for race. Performed By: #### 2 4323-8 #### [facility] [address] [place] [address] Glucose [Mass/Vol] 106 mg/dL High 70-99 [facility] Comment on above: Performed By: #### 2 4323-8 #### [facility] [address] [place] [address] Potassium [Moles/Vol] 4.4 mmol/L Normal 3.6-5.1 [facility] Comment on above: Performed By: #### 2 4323-8 #### [facility] [address] [place] [address] Protein [Mass/Vol] 6.8 g/dL Normal 6.1-7.9 [facility] Comment on above: Performed By: #### 2 4323-8 #### [facility] [address] [place] [address] Sodium [Moles/Vol] 140 mmol/L Normal 136-145 [facility] Comment on above: Performed By: #### 2 4323-8 #### [facility] [address] [place] [address] Urea nitrogen [Mass/Vol] 22 mg/dL High 8-20 [facility] Comment on above: Performed By: #### 2 4323-8 #### [facility] [address] [place] [address] Urea nitrogen/Creatinine [Mass ratio] 33.8 mg/mg High 12.0-20.0 [facility] Comment on above: Performed By: #### 2 4323-8 #### [facility] [address] [place] [address] HbA1c (Bld) [Mass fraction]o n 06-05-2025 Mean Bld Glu Estim. 111 mg/dL Normal [facility] Comment on above: Order Comment: HbA1c values of 5.7-6.4 percent indicate an increased risk for developing diabetes mellitus. HbA1c values greater than or equal to 6.5 percent are diagnostic of diabetes mellitus. For diagnosis of diabetes in individuals without unequivocal hyperglycemia, results should be confirmed by repeat testing. Performed By: #### 4 548-4 #### [facility] [address] [place] [address] HbA1c MFr Bldon 06-05-2025 HbA1c (Bld) [Mass fraction] 5.5 % Normal <=5.6 [facility] Comment on above: Order Comment: HbA1c values of 5.7-6.4 percent indicate an increased risk for developing diabetes mellitus. HbA1c values greater than or equal to 6.5 percent are diagnostic of diabetes mellitus. For diagnosis of diabetes in individuals without unequivocal hyperglycemia, results should be confirmed by repeat testing. Performed By: #### 4 548-4 #### [facility] [address] [place] [address] CBC W Auto Differential pane l (Bld)on 06-03-2025 Basophils (Bld) [#/Vol] 0.03 10*3/uL Normal <0.11 [facility] Comment on above: Order Comment: Speci men Type: BLOOD SPECIMEN Ordering Facility: [facility] Address: [address] [place] [address] Performed By: #### 3 016-3, 80164-7, 63292-2, 31582-8, 66645-4 #### [facility] CLIA [id number] [address] [place] [address] [place] Basophils/100 WBC (Bld) 0.4 % Normal [facility] Comment on above: Order Comment: Speci men Type: BLOOD SPECIMEN Ordering Facility: [facility] Address: [address] [place] [address] Performed By: #### 3 016-3, 40648-7, 91292-4, 35789-9, 40608-0 #### [facility] CLIA [id number] [address] [place] [address] [place] Differential cell count method Nom (Bld) Auto Normal [facility] Comment on above: Order Comment: Speci men Type: BLOOD SPECIMEN Ordering Facility: [facility] Address: [address] [place] [address] Performed By: #### 3 016-3, 75718-5, 37555-4, 06801-3, 46449-9 #### [facility] CLIA [id number] [address] [place] [address] [place] Eosinophils (Bld) [#/Vol] 0.10 10*3/uL Normal <0.46 [facility] Comment on above: Order Comment: Speci men Type: BLOOD SPECIMEN Ordering Facility: [facility] Address: [address] [place] [address] Performed By: #### 3 016-3, 60249-3, 23586-7, 31383-1, 70600-8 #### [facility] CLIA [id number] [address] [place] [address] [place] Eosinophils/100 WBC (Bld) 1.5 % Normal [facility] Comment on above: Order Comment: Speci men Type: BLOOD SPECIMEN Ordering Facility: [facility] Address: [address] [place] [address] Performed By: #### 3 016-3, 99919-1, 12601-2, 86754-4, 11028-9 #### [facility] CLIA [id number] [address] [address] [place] Erythrocyte distribution width (RBC) [Ratio] 13.8 % Normal 11.5-15.0 [facility] Comment on above: Order Comment: Speci men Type: BLOOD SPECIMEN Ordering Facility: [facility] Address: [address] [place] [address] Performed By: #### 3 016-3, 97577-6, 65663-5, 57524-2, 90834-7 #### [facility] CLIA [id number] [address] [place], [place] [address] [place] Hematocrit (Bld) [Volume fraction] 45.1 % Normal 36.0-46.0 [facility] Comment on above: Order Comment: Speci men Type: BLOOD SPECIMEN Ordering Facility: [facility] Address: [address] [place] [address] Performed By: #### 3 016-3, 11528-1, 01730-3, 37457-4, 83677-7 #### [facility] CLIA [id number] [address] [place], [place] [address] [place] Hemoglobin (Bld) [Mass/Vol] 13.8 g/dL Normal 11.5-15.5 [facility] Comment on above: Order Comment: Speci men Type: BLOOD SPECIMEN Ordering Facility: [facility] Address: [address] [place] [address] Performed By: #### 3 016-3, 40386-8, 20837-4, 29405-0, 04640-5 #### [facility] CLIA [id number] [address] [place], [place] [address] [place] Immature granulocytes (Bld) [#/Vol] 0.05 10*3/uL Normal <0.10 [facility] Comment on above: Order Comment: Speci men Type: BLOOD SPECIMEN Ordering Facility: [facility] Address: [address] [place] [address] [place] [address] Performed By: #### 3 016-3, 01070-5, 24549-2, 77706-3, 39360-6 #### [facility] CLIA [id number] [address] [place] [address] [place] Immature granulocytes/100 WBC (Bld) 0.7 % Normal [facility] Comment on above: Order Comment: Speci men Type: BLOOD SPECIMEN Ordering Facility: [facility] Address: [address] [place] [address] Performed By: #### 3 016-3, 28055-0, 00098-7, 26925-4, 22507-9 #### [facility] CLIA [id number] [address] [place] [address] [place] Lymphocytes (Bld) [#/Vol] 2.14 10*3/uL Normal 1.00-4.00 [facility] Comment on above: Order Comment: Speci men Type: BLOOD SPECIMEN Ordering Facility: [facility] Address: [address] [place] [address] Performed By: #### 3 016-3, 71453-3, 49780-6, 49921-0, 92722-7 #### [facility] CLIA [id number] [address] [place] [address] [place] Lymphocytes/100 WBC (Bld) 31.7 % Normal [facility] Comment on above: Order Comment: Speci men Type: BLOOD SPECIMEN Ordering Facility: [facility] Address: [address] [place] [address] Performed By: #### 3 016-3, 88451-9, 38954-9, 23075-4, 08861-3 #### [facility] CLIA [id number] [address] [place] [address] [place] MCH (RBC) [Entitic mass] 27.4 pg Normal 26.0-34.0 [facility] Comment on above: Order Comment: Speci men Type: BLOOD SPECIMEN Ordering Facility: [facility] Address: [address] [place] [address] Performed By: #### 3 016-3, 72758-0, 12795-1, 10120-8, 07410-4 #### [facility] CLIA [id number] [address] [place] [address] [place] MCHC (RBC) [Mass/Vol] 30.6 g/dL Normal 30.5-36.0 [facility] Comment on above: Order Comment: Speci men Type: BLOOD SPECIMEN Ordering Facility: [facility] Address: [address] [place] [address] Performed By: #### 3 016-3, 61285-8, 80392-6, 11974-9, 04365-0 #### [facility] CLIA [id number] [address] [place] [address] [place] MCV (RBC) [Entitic vol] 89.7 fL Normal 80.0-100.0 [facility] Comment on above: Order Comment: Speci men Type: BLOOD SPECIMEN Ordering Facility: [facility] Address: [address] [place] [address] Performed By: #### 3 016-3, 92580-4, 74694-2, 49953-3, 21781-4 #### [facility] CLIA [id number] [address] [place] [address] [place] Monocytes (Bld) [#/Vol] 0.46 10*3/uL Normal <0.87 [facility] Comment on above: Order Comment: Speci men Type: BLOOD SPECIMEN Ordering Facility: [facility] Address: [address] [place] [address] Performed By: #### 3 016-3, 87105-7, 05333-9, 49654-8, 61189-9 #### [facility] CLIA [id number] [address] [place] [address] [place] Monocytes/100 WBC (Bld) 6.8 % Normal [facility] Comment on above: Order Comment: Speci men Type: BLOOD SPECIMEN Ordering Facility: [facility] Address: [address] [place] [address] Performed By: #### 3 016-3, 19516-5, 61982-7, 08194-9, 18272-6 #### [facility] CLIA [id number] [address] [place], [place] [address] [place] Neutrophils (Bld) [#/Vol] 3.98 10*3/uL Normal 1.45-7.50 [facility] Comment on above: Order Comment: Speci men Type: BLOOD SPECIMEN Ordering Facility: [facility] Address: [address] [place] [address] Performed By: #### 3 016-3, 38930-5, 60246-7, 14007-4, 16251-1 #### [facility] CLIA [id number] [address] [place] [address] [place] Neutrophils/100 WBC (Bld) 58.9 % Normal [facility] Comment on above: Order Comment: Speci men Type: BLOOD SPECIMEN Ordering Facility: [facility] Address: [address] [place] [address] Performed By: #### 3 016-3, 92416-0, 23270-2, 61362-5, 22436-8 #### [facility] CLIA [id number] [address] [place], [place] [address] [place] Nucleated RBC (Bld) [#/Vol] 10*3/uL Normal <0.01 [facility] Comment on above: Order Comment: Speci men Type: BLOOD SPECIMEN Ordering Facility: [facility] Address: [address] [place], [place] [address] Performed By: #### 3 016-3, 90335-0, 40618-5, 37868-3, 39884-7 #### [facility] CLIA [id number] [address] [address] [place] Nucleated RBC/100 WBC (Bld) [Ratio] 0.0 /100 WBC Normal [facility] Comment on above: Order Comment: Speci men Type: BLOOD SPECIMEN Ordering Facility: [facility] Address: [address] [place] [address] Performed By: #### 3 016-3, 85346-7, 69116-1, 69867-8, 94612-0 #### [facility] CLIA [id number] [address] [place] [address] [place] Platelet mean volume (Bld) [Entitic vol] 11.5 fL Normal 9.0-12.7 [facility] Comment on above: Order Comment: Speci men Type: BLOOD SPECIMEN Ordering Facility: [facility] Address: [address] [place] [address] Performed By: #### 3 016-3, 59971-3, 89617-8, 24465-7, 27823-7 #### [facility] CLIA [id number] [address] [place], [place] [address] [place] Platelets (Bld) [#/Vol] 297 10*3/uL Normal 150-400 [facility] Comment on above: Order Comment: Speci men Type: BLOOD SPECIMEN Ordering Facility: [facility] Address: [address] [place] [address] Performed By: #### 3 016-3, 17306-4, 86368-1, 97150-1, 02405-7 #### [facility] CLIA [id number] [address] [place] [address] [place] RBC (Bld) [#/Vol] 5.03 10*6/uL Normal 3.90-5.20 [facility] Comment on above: Order Comment: Speci men Type: BLOOD SPECIMEN Ordering Facility: [facility] Address: [address] [place] [address] Performed By: #### 3 016-3, 03124-0, 24873-7, 52920-1, 49847-4 #### [facility] CLIA [id number] [address] [place], [place] [address] [place] WBC (Bld) [#/Vol] 6.76 10*3/uL Normal 3.70-11.00 [facility] Comment on above: Order Comment: Speci men Type: BLOOD SPECIMEN Ordering Facility: [facility] Address: [address] [place] [address] Performed By: #### 3 016-3, 75032-3, 55347-7, 28585-6, 43581-9 #### [facility] CLIA [id number] [address] [place], [place] [address] [place] Comprehensive metabolic 2000 panelon 06-03-2025 Albumin [Mass/Vol] 4.1 g/dL Normal 3.9-4.9 [facility] Comment on above: Order Comment: Speci men Type: BLOOD SPECIMEN Ordering Facility: [facility] Address: [address] [place] [address] Performed By: #### 3 016-3, 42076-4, 23286-0, 76786-0, 65581-2 #### [facility] CLIA [id number] [address] [place] [address] [place] ALP [Catalytic activity/Vol] 30 U/L Low 34-123 [facility] Comment on above: Order Comment: Speci men Type: BLOOD SPECIMEN Ordering Facility: [facility] Address: [address] [place] [address] [place] [id number] Performed By: #### 3 016-3, 86334-1, 80116-2, 95420-3, 52578-8 #### [facility] CLIA [id number] [address] [place], [place] [address] [place] ALT [Catalytic activity/Vol] 13 U/L Normal 7-38 [facility] Comment on above: Order Comment: Speci men Type: BLOOD SPECIMEN Ordering Facility: [facility] Address: [address] [place] [address] [place] [id number] Performed By: #### 3 016-3, 56062-9, 01850-6, 92087-1, 87423-4 #### [facility] CLIA [id number] [address] [place], [place] [address] [place] Anion gap [Moles/Vol] 14 mmol/L Normal 8-15 [facility] Comment on above: Order Comment: Speci men Type: BLOOD SPECIMEN Ordering Facility: [facility] Address: [address] [place] [address] [place] [address] Performed By: #### 3 016-3, 75297-5, 36905-1, 90415-3, 67740-0 #### [facility] CLIA [id number] [address] [place], [place] [address] [place] AST [Catalytic activity/Vol] 21 U/L Normal 13-35 [facility] Comment on above: Order Comment: Speci men Type: BLOOD SPECIMEN Ordering Facility: [facility] Address: [address] [place] [address] [place] [address] Performed By: #### 3 016-3, 48226-2, 71681-7, 41756-3, 96636-7 #### [facility] CLIA [id number] [address] [place], [place] [address] [place] Bilirubin [Mass/Vol] 0.4 mg/dL Normal 0.2-1.3 [facility] Comment on above: Order Comment: Speci men Type: BLOOD SPECIMEN Ordering Facility: [facility] Address: [address] [place] [address] Performed By: #### 3 016-3, 98727-3, 27286-1, 64962-9, 44085-7 #### [facility] CLIA [id number] [address] [place] [address] [place] Calcium [Mass/Vol] 9.9 mg/dL Normal 8.5-10.2 [facility] Comment on above: Order Comment: Speci men Type: BLOOD SPECIMEN Ordering Facility: [facility] Address: [address] [place] [address] Performed By: #### 3 016-3, 41146-3, 20601-1, 69523-2, 66695-4 #### [facility] CLIA [id number] [address] [place] [address] [place] Chloride [Moles/Vol] 103 mmol/L Normal 98-107 [facility] Comment on above: Order Comment: Speci men Type: BLOOD SPECIMEN Ordering Facility: [facility] Address: [address] [place] [address] Performed By: #### 3 016-3, 43693-1, 16862-1, 34148-2, 91585-7 #### [facility] CLIA [id number] [address] [place] [address] [place] CO2 [Moles/Vol] 22 mmol/L Normal 22-30 [facility] Comment on above: Order Comment: Speci men Type: BLOOD SPECIMEN Ordering Facility: [facility] Address: [address] [place] [address] Performed By: #### 3 016-3, 04988-8, 70628-9, 30673-0, 61451-2 #### [facility] CLIA [id number] [address] [place] [id number] [place] Creatinine [Mass/Vol] 0.66 mg/dL Normal 0.58-0.96 [facility] Comment on above: Order Comment: Speci alejo Type: BLOOD SPECIMEN Ordering Facility: [facility] Address: [address] [place] [address] Performed By: #### 3 016-3, 66931-1, 03153-7, 89524-4, 27689-5 #### [facility] CLIA [id number] [address] [place] [address] [place] Creatinine and Glomerular filtration rate.predicted panel (S/P/Bld) 101 mL/min/1.73m??? Normal >=60 [facility] Comment on above: Order Comment: Clem dhillon Type: BLOOD SPECIMEN Ordering Facility: [facility] Address: [address] [place] [address] Result Comment: Ramona mated Glomerular Filtration Rate (eGFR) is calculated using the 2020 CKD-EPI creatinine equation. This equation utilizes serum creatinine, sex, and age as parameters. The creatinine assay has traceable calibration to isotope dilution-mass spectrometry. Refer to KDIGO guidelines for clinical interpretation. In patients with unstable renal function, e.g. those with acute kidney injury, the eGFR may not accurately reflect actual GFR. Performed By: #### 3 016-3, 33482-7, 29743-5, 12348-9, 90051-2 #### [facility] CLIA [id number] [address] [place], [place] [id number] [place] Glucose [Mass/Vol] 77 mg/dL Normal 74-99 [facility] Comment on above: Order Comment: Clem dhillon Type: BLOOD SPECIMEN Ordering Facility: [facility] Address: [address] [place] [address] Result Comment: The [place] Diabetes Association (ADA) provides guidance for cutoff values for fasting glucose and random glucose. The ADA defines fasting as no caloric intake for at least 8 hours. Fasting plasma glucose results between 100 to 125 mg/dL indicate increased risk for diabetes (prediabetes). Fasting plasma glucose results greater than or equal to 126 mg/dL meet the criteria for diagnosis of diabetes. In the absence of unequivocal hyperglycemia, results should be confirmed by repeat testing. In a patient with classic symptoms of hyperglycemia or hyperglycemic crisis, random plasma glucose results greater than or equal to 200 mg/dL meet the criteria for diagnosis of diabetes. Reference: Standards of Medical Care in Diabetes 2016, [place] Diabetes Association. Diabetes Care. 2016.39(Suppl 1). Performed By: #### 3 016-3, 43764-3, 73964-4, 63919-6, 84315-9 #### [facility] CLIA [id number] [address] [place] [address] [place] Potassium [Moles/Vol] 4.9 mmol/L Normal 3.7-5.1 [facility] Comment on above: Order Comment: Clem dhillon Type: BLOOD SPECIMEN Ordering Facility: [facility] Address: [address] [place] [address] Performed By: #### 3 016-3, 12337-0, 51115-6, 78790-1, 34545-7 #### [facility] CLIA [id number] [address] [place] [address] [place] Protein [Mass/Vol] 7.2 g/dL Normal 6.3-8.0 [facility] Comment on above: Order Comment: Clem dhillon Type: BLOOD SPECIMEN Ordering Facility: [facility] Address: [address] [place] [address] Performed By: #### 3 016-3, 51906-0, 98865-7, 73020-9, 21844-2 #### [facility] CLIA [id number] [address] [place] [address] [place] Sodium [Moles/Vol] 139 mmol/L Normal 136-144 [facility] Comment on above: Order Comment: Speci men Type: BLOOD SPECIMEN Ordering Facility: [facility] Address: [address] [place] [address] Performed By: #### 3 016-3, 88471-6, 79104-1, 74765-5, 92604-4 #### [facility] CLIA [id number] [address] [place] [address] [place] Urea nitrogen [Mass/Vol] 18 mg/dL Normal 7-21 [facility] Comment on above: Order Comment: Speci men Type: BLOOD SPECIMEN Ordering Facility: [facility] Address: [address] [place] [address] Performed By: #### 3 016-3, 29485-0, 88606-1, 27537-4, 09926-5 #### [facility] CLIA [id number] [address] [place], [place] [id number] [place] HbA1c (Bld)on 06-03-2025 Average glucose Estimated from glycated hemoglobin (Bld) [Mass/Vol] 111 mg/dL Normal [facility] Comment on above: Order Comment: Clem men Type: BLOOD SPECIMEN Ordering Facility: [facility] Address: [address] [place] [address] Result Comment: eAG: (Estimated average glucose) is a calculated value from HgbA1c and is sales representative cash registers of the average blood glucose level in the last 2-3 month period. Performed By: #### 3 016-3, 35933-6, 40816-7, 56753-6, 67636-3 #### [facility] CLIA [id number] [address] [place] [address] [place] HbA1c (Bld) [Mass fraction] 5.5 % Normal 4.3-5.6 [facility] Comment on above: Order Comment: Rayi men Type: BLOOD SPECIMEN Ordering Facility: [facility] Address: [address], [place] [address] Result Comment: Amer ican Diabetes Association guidelines indicate that patients with HgbA1c in the range 5.7-6.4% are at increased risk for development of diabetes, and intervention by lifestyle modification may be beneficial. HgbA1c greater or equal to 6.5% is considered diagnostic of diabetes. Performed By: #### 3 016-3, 30569-4, 12222-0, 36248-0, 55010-7 #### [facility] CLIA [id number] [address] [place] [id number] [place] Lipid 1996 panelon 5 Cholesterol [Mass/Vol] 191 mg/dL Normal <200 [facility] Comment on above: Order Comment: Clem dhillon Type: BLOOD SPECIMEN Ordering Facility: [facility] Address: [address] [place] [address] Result Comment: <200 mg/dL, Desirable 200-239 mg/dL, Borderline high >239 mg/dL, High Performed By: #### 3 016-3, 50090-6, 93293-1, 88569-4, 73046-3 #### [facility] CLIA [id number] [address] [place] Cholesterol in HDL [Mass/Vol] 62 mg/dL Normal >39 [facility] Comment on above: Order Comment: Clem dhillon Type: BLOOD SPECIMEN Ordering Facility: [facility] Address: [address] [place] [address] Result Comment: 40-5 9 mg/dL, Acceptable >59 mg/dL, High: Negative risk factor for coronary heart disease <40 mg/dL, Low: Positive risk factor for coronary heart disease Performed By: #### 3 016-3, 51880-1, 47385-8, 24664-1, 01860-2 #### [facility] CLIA [id number] [address] [address] [place] Cholesterol in LDL [Mass/Vol] 119 mg/dL High <100 [facility] Comment on above: Order Comment: Speci men Type: BLOOD SPECIMEN Ordering Facility: [facility] Address: [address] [place] [address] Result Comment: <100 mg/dL, Optimal 100-129 mg/dL, Near optimal/above optimal 130-159 mg/dL, Borderline high 160-189 mg/dL, High >189 mg/dL, Very high Secondary prevention optimal LDL Cholesterol levels are recommended to be <70 mg/dL LDL cholesterol is calculated using the Kruse-NIH equation. Performed By: #### 3 016-3, 24443-4, 71172-2, 37092-5, 37146-1 #### [facility] CLIA [id number] [address] [place] [address] [place] Cholesterol in LDL/Cholesterol in HDL [Mass ratio] 1.92 {ratio} Normal <2.54 [facility] Comment on above: Order Comment: Clem dhillon Type: BLOOD SPECIMEN Ordering Facility: [facility] Address: [address] [place] [address] Result Comment: Refe rence: 1. National Cholesterol Education Program ATP III Guideline At-A-Glance Quick Desk Reference: National Heart, Lung, and Blood [place]. National Institutes of Health. 2001: NIH Publication No. 01-3305. 2. An International Atherosclerosis Society position paper: global recommendations for the management of dyslipidemia: executive summary, Atherosclerosis. 2014: 232(2):410-413. Performed By: #### 3 016-3, 54768-3, 32891-9, 28102-0, 65344-7 #### [facility] CLIA [id number] [address] [place] [address] [place] Cholesterol in VLDL [Mass/Vol] 9 mg/dL Normal <30 [facility] Comment on above: Order Comment: Clem dhillon Type: BLOOD SPECIMEN Ordering Facility: [facility] Address: [address] [place] [address] Performed By: #### 3 016-3, 12540-6, 63619-0, 28443-2, 87339-3 #### [facility] CLIA [id number] [address] [place] [id number] [place] Cholesterol non HDL [Mass/Vol] 129 mg/dL Normal <130 [facility] Comment on above: Order Comment: Speci men Type: BLOOD SPECIMEN Ordering Facility: [facility] Address: [address] [place] [address] Result Comment: <130 mg/dL, Optimal 130-159 mg/dL, Near optimal/above optimal 160-189 mg/dL, Borderline high 190-219 mg/dL, High >219 mg/dL, Very high Secondary prevention optimal non HDL Cholesterol levels are recommended to be <100 mg/dL Performed By: #### 3 016-3, 43402-6, 03485-4, 17823-3, 92416-7 #### [facility] CLIA [id number] [address] [place], [place] [id number] [place] Cholesterol.total/Choles terol in HDL [Mass ratio] 3.08 {ratio} Normal <5.10 [facility] Comment on above: Order Comment: Speci men Type: BLOOD SPECIMEN Ordering Facility: [facility] Address: [address] [place] [address] Performed By: #### 3 016-3, 69005-7, 96361-0, 78794-0, 60813-6 #### [facility] CLIA [id number] [address] [place], [place] [id number] [place] FASTING TIME 12 hrs Normal [facility] Comment on above: Order Comment: Speci men Type: BLOOD SPECIMEN Ordering Facility: [facility] Address: [address] [place] [address] Performed By: #### 3 016-3, 60165-4, 15533-9, 71839-7, 44348-1 #### [facility] CLIA [id number] [address] [place], [place] [id number] [place] Triglyceride [Mass/Vol] 54 mg/dL Normal <150 [facility] Comment on above: Order Comment: Speci men Type: BLOOD SPECIMEN Ordering Facility: [facility] Address: [address] [place] [address] Result Comment: <150 mg/dL, Normal 150-199 mg/dL, Borderline high 200-499 mg/dL, High >499 mg/dL, Very high Performed By: #### 3 016-3, 41599-2, 19410-3, 61232-9, 39850-4 #### [facility] CLIA [id number] [address] [place] [address] [place] TSH SerPl-aCncon 06-03-2025 TSH Qn 1.450 m[IU]/L Normal 0.270-4.200 [facility] Comment on above: Order Comment: Speci men Type: BLOOD SPECIMEN Ordering Facility: [facility] Address: [address] [place] [address] Performed By: #### 3 016-3, 63954-3, 83513-8, 68342-4, 87908-9 #### [facility] CLIA [id number] [address] [place] [address] [place] Breast imaging reportOrdered By: Jory Blackburn on 05-19-2025 Study report [facility] Services [address] [place] [address] SCRN MAMM (CAD)W/KAYLEY BILAT MR#: [id number] Acct: [id number] Name: LAQUITA APPIAHN R Rep #: [id number] : 1965 F 59 From: Tommie Schaefer MD PCP: Dr. Patrice Holland MD Status: REG CLI Study:SCRN MAMM (CAD)W/KAYLEY BILAT Date of Exa m: 05/19/25 Exam# [id number] Ordering Dr: Jocy Betts SILK SCREEN REPAIRER SILK SCREEN REPAIRER-C EXAM: SCRN MAMM (CAD)W/KAYLEY BILAT DATE: 05/19/2025 CLINICAL HISTORY: F, Age 59 y/o , SCREENING FOR BREAST CANCER BREAST CANCER RISK ASSESSMENT: Na TECHNIQUE: SCRN MAMM (CAD)W/KAYLEY BILAT COMPARISON: Prior exam(s) were compared FINDINGS: TISSUE DENSITY: The breast tissue is composed of scattered areas of fibroglandular density. Bilateral Breast Mammographic Findings: No suspicious masses, calcifications or other abnormalities are identified. BI/SCRN MAMM (CAD)W/KAYLEY BILAT IMPRESSION: No mammographic evidence of malignancy in either breast OVERALL FINAL ASSESSMENT BI-RADS 1: NEGATIVE. RECOMMEND ANNUAL MAMMOGRAPHIC SCREENING. RECOMMENDATION: Routine annual follow-up in 1 Year A letter with findings and recommendations will be mailed to the patient. Reading Location: [id number] CC: SILK SCREEN REPAIRER-Soumya Betts; Dr. Patrice Holland MD ~ Civil Defense Director: Signed [facility] SCRN MAMM (CAD)W/KAYLEY BILATo n 05-19-2025 SCRN MAMM (CAD)W/KAYLEY BILAT [facility] Imaging Services [address] [place] [id number] SCRN MAMM (CAD)W/KAYLEY BILAT MR#: [id number] Acct: [id number] Name: CITLALLI APPIAH Rep #: [id number] : 1965 F 59 From: Jory Harrington i, MD PCP: Dr. Patrice Holland MD Status: [facility] CLI Study: SCRN MAMM (CAD)W/KAYLEY BILAT Date of Exam: 04/28 02/18 Exam# [id number] Ordering Dr: Jocy Betts NP SILK SCREEN REPAIRER -C EXAM: SCRN MAMM (CAD)W/KAYLEY BILAT DATE: 05/19/2025 CLINICAL HISTORY: F, Age 59 y/o , SCREENING FOR BREAST CANCER BREAST CANCER RISK ASSESSMENT: Na TECHNIQUE: SCRN MAMM (CAD)W/KAYLEY BILAT COMPARISON: Prior exam(s) were compared FINDINGS: TISSUE DENSITY: The breast tissue is composed of scattered areas of fibroglandular density. Bilateral Breast Mammographic Findings: No suspicious masses, calcifications or other abnormalities are identified. BI/SCRN MAMM (CAD)W/KAYLEY BILAT IMPRESSION: No mammographic evidence of malignancy in either breast OVERALL FINAL ASSESSMENT BI-RADS 1: NEGATIVE. RECOMMEND ANNUAL MAMMOGRAPHIC SCREENING. RECOMMENDATION: Routine annual follow-up in 1 Year A letter with findings and recommendations will be mailed to the patient. Reading Location: [id number] CC: STEVE Betts; Dr. Patrice Holland MD Civil Defense Director: Signed Normal [facility] Bible Teacher Office Visit Reporton 04-22-2025 Bible Teacher Office Visit Report [facility] [address], [address] [place] [address] OFFICE VISIT Date of Service: 04/22/25 MR#: [id number] Acct: [id number] Name: CITLALLI APPIAH Rep #: [id number] : 1965 Provider: STEVE castellanos Age/Sex: 59/F [place] [facility] [place]: Signed Intake Vital Signs 04/15/24 11:11 04/22/25 11:09 04/22/25 11:18 Height 5 ft 5 in 5 ft 5 in 5 ft 5 in Weight: 321 lb 2 oz BMI 53.4 BP 122/72 H 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) Chief Complaint: Annual Social Sciences Chair Required: No Is patient in pain?: No Allergies No Known Allergies Allergy (Unverified 04/22/25 11:08) Medications ???Medication ???Instructions ???Recorded ???Confirmed ???Type acetaminophen 325 mg capsule 325 mg PO ONCE PRN 04/15/24 History (Tylenol) amlodipine 5 mg tablet 5 mg PO DAILY 04/15/24 04/22/25 Hi story semaglutide (weight loss) 1 mg/0.5 1 mg subcut QWEEK 04/15/2404/22 History mL subcutaneous pen injector medroxyprogesteron e 10 mg tablet 10 mg PO .COMPLEX #30 tabs 04/22/2 5 04/22/25 Rx metronidazole 1 % topical gel 1 applic topical DAILY #60 grams 0 04/22/25 04/22/25 Rx Is last menstrual period known: No Post menopausal: Yes Patient : No : No PFSH Medical History Endometriosis Hypertension Surgical History Status post right knee replacement History of ankle surgery S/P cholecystectomy S/P left oophorectomy Social History current occupational status: employed current occupation: [employer] Smoking Status: Never smoker alcohol intake: never substance use type: does not use seatbelt use: always additional social history: Single History 0 Elective abortions Hx Para Spontaneous abortions Hx # Term Pregnancies Ectopic pregnancies Hx # Pregnancies Multiple births # of living children HPI Encounter for routine gynecological examination Details: CITLALLI APPIAH is a 59 year old who presents for annual exam. Denies concerns. Having other knee replaced next month. No menses with provera each month. Has taken since 2019 due to heavy and prolonged menses. Last PAP: 2022 History of abnormal PAP: no Last mammogram: 03/2024 History of abnormal mammogram: neg bx Colon cancer screening: cololga Q3 yr Other preventative health care screenings: Ngozi Holland Female Reproductive History Questions: metorrhagia: No and sexually active: No ROS Const Constitutional: Denies fatigue, weight gain or weight loss Cardio Card: Denies chest pain Resp Resp: Denies cough or dyspnea on exertion GI GI: Denies abdominal pain, bloating, change in stool character, constipation or vomiting : Reports as per HPI; Denies difficulty voiding, pelvic pain, urinary frequency, urinary incontinence, urinary urgency, vaginal discharge or vaginal pruritus Exam Const General: cooperative, healthy appearing, no acute distress and well developed Nutritional Appearance: obese Orientation: alert, oriented to person and oriented to place [facility] Head: normal to inspection Neck Neck: normal visual inspection Thyroid: thyroid normal Lymphatic: no lymphadenopathy noted Chest Breast inspection: normal inspection of the breasts and normal inspection of the axillae Breast palpation: normal palpation of the breasts, normal palpation of the axillae and no axillary lymphadenopathy Resp Effort Inspection: normal respiratory effort GI Palpation: soft, no masses and nontender Rectal Exam: deferred External Female Exam: normal external appearance and normal appearance of the urethra Urethra: normal appearance of the urethra and normal palpation Speculum Exam - Vagina: normal appearance of the vagina and normal vaginal discharge Speculum Exam - Cervix: normal appearance of the cervix Bimanual Exam- Vagina Uterus: normal bimanual exam, uterine size normal, uterine shape normal and non-tender Bimanual Exam- Adnexa, other: normal adnexae, no masses, normal and non-tender Pelvic Support: normal Neuro General: patient alert and patient oriented x3 Psych Affect: normal affect Coding Level of Care Code Off vis,est,prev 40-64yrs Diagnoses Encounter for gynecological examination without abnormal finding Z01.419 Gynecological examination findings: abnormal findings ABSENT Assessment and Plan Assessment and Plan (1) Encounter for routine gynecological examination: Qualifiers: Gynecological examination findings: abnormal findings ABSENT Qualified Code(s): Z01.419 - Encounter for gynecological examination (general) (routine) without abnormal findings Order (more content not included)... Normal [facility] Absolute lymphocyte countOrd ered By: Patrice Holland on 03-24-2025 Lymphocytes Auto (Unsp spec) [#/Vol] 1.94 10*3/uL 0.83-4.51 [facility] Absolute neutrophil countOrd ered By: Patrice Holland on 03-24-2025 Neutrophils (Bld) [#/Vol] 4.8 10*3/uL 2.0-7.7 [facility] Anion gap in Serum or Plasma Ordered By: Patrice Holland on 03-24-2025 Anion gap [Moles/Vol] 10 mmol/L 5-15 [facility] Automated lymphocyte count a s percentage of total leukocytesOrdered By: Patrice Holland on 03-24-2025 Lymphocytes/100 WBC Auto (Unsp spec) 26.4 % 19-41 [facility] BUN/creatinine ratioOrdered By: Patrice Holland on 03-24-2025 Urea nitrogen/Creatinine [Mass ratio] 22.0 mg/mg High 10-20 [facility] Basophil percentageOrdered B y: Patrice Holland on 03-24-2025 Basophils/100 WBC (Bld) 0.4 % 0-1 [facility] Bilirubin, totalOrdered By: Patrice Holland on 03-24-2025 Bilirubin [Mass/Vol] 0.32 mg/dL 0.00-1.30 [facility] CBC W/Diff, Automatedon 04-2 Absolute Lymph 1.94 X10 3/uL Normal 0.83-4.51 [facility] Comment on above: Order Comment: Order Date: 03/24/25 Order Info: 0184-1 - CBCD Performed By: #### L 501.9520, L100.0100, L501.5200, L500.4050 #### [facility] [address] [place], [address] Absolute Neut 4.8 X10 3/uL Normal 2.0-7.7 [facility] Comment on above: Order Comment: Order Date: 03/24/25 Order Info: 0184- - CBCD Performed By: #### L 501.9520, L100.0100, L501.5200, L500.4050 #### [facility] [address] [place], [address] Basophils/100 WBC (Bld) 0.4 % Normal 0-1 [facility] Comment on above: Order Comment: Order Date: 03/24/25 Order Info: 0184- - CBCD Performed By: #### L 501.9520, L100.0100, L501.5200, L500.4050 #### [facility] [address] [place], [address] Eosinophils/100 WBC (Bld) 2.2 % Normal 0-5 [facility] Comment on above: Order Comment: Order Date: 03/24/25 Order Info: 0184-1 - CBCD Performed By: #### L 501.9520, L100.0100, L501.5200, L500.4050 #### [facility] [address] [place], [address] Erythrocyte distribution width (RBC) [Ratio] 13.4 % Normal 11.6-14.6 [facility] Comment on above: Order Comment: Order Date: 03/24/25 Order Info: 0184-1 - CBCD Performed By: #### L 501.9520, L100.0100, L501.5200, L500.4050 #### [facility] [address] [place], [address] Hematocrit (Bld) [Volume fraction] 42.6 % Normal 37-47 [facility] Comment on above: Order Comment: Order Date: 03/24/25 Order Info: 0184-1 - CBCD Performed By: #### L 501.9520, L100.0100, L501.5200, L500.4050 #### [facility] [address] [place], [address] Hemoglobin (Bld) [Mass/Vol] 13.6 g/dL Normal 12.0-15.0 [facility] Comment on above: Order Comment: Order Date: 03/24/25 Order Info: 0184- - CBCD Performed By: #### L 501.9520, L100.0100, L501.5200, L500.4050 #### [facility] [address] [place], [address] IG% 0.100 Normal 0.0-0.9 [facility] Comment on above: Order Comment: Order Date: 03/24/25 Order Info: 0184-1 - CBCD Result Comment: IG% - Immature Granulocytes (promyelocytes, myelocytes and metamyelocytes) > 1% indicates that a LEFT SHIFT is Present. Performed By: #### L 501.9520, L100.0100, L501.5200, L500.4050 #### [facility] [address] [place], [address] Lymphocytes/100 WBC (Bld) 26.4 % Normal 19-41 [facility] Comment on above: Order Comment: Order Date: 03/24/25 Order Info: 0184-1 - CBCD Performed By: #### L 501.9520, L100.0100, L501.5200, L500.4050 #### [facility] [address] [place], [address] MCH (RBC) [Entitic mass] 28.0 pg Normal 27.0-32.0 [facility] Comment on above: Order Comment: Order Date: 03/24/25 Order Info: 0184-1 - CBCD Performed By: #### L 501.9520, L100.0100, L501.5200, L500.4050 #### [facility] [address] [place], [address] MCHC (RBC) [Mass/Vol] 31.9 g/dL Low 32-36 [facility] Comment on above: Order Comment: Order Date: 03/24/25 Order Info: 0184-1 - CBCD Performed By: #### L 501.9520, L100.0100, L501.5200, L500.4050 #### [facility] [address] [place], [address] MCV (RBC) [Entitic vol] 87.7 fL Normal 81-99 [facility] Comment on above: Order Comment: Order Date: 03/24/25 Order Info: 0184-1 - CBCD Performed By: #### L 501.9520, L100.0100, L501.5200, L500.4050 #### [facility] [address] [place], [address] Monocytes/100 WBC (Bld) 5.4 % Normal 0-10 [facility] Comment on above: Order Comment: Order Date: 03/24/25 Order Info: 0184-1 - CBCD Performed By: #### L 501.9520, L100.0100, L501.5200, L500.4050 #### [facility] [address] [place], [address] Neutrophils/100 WBC (Bld) 65.5 % Normal 47-70 [facility] Comment on above: Order Comment: Order Date: 03/24/25 Order Info: 0184-1 - CBCD Performed By: #### L 501.9520, L100.0100, L501.5200, L500.4050 #### [facility] [address] [place], [address] Nucleated RBC (Bld) [#/Vol] 0 10*3/uL Normal 0-5 [facility] Comment on above: Order Comment: Order Date: 03/24/25 Order Info: 0184-1 - CBCD Performed By: #### L 501.9520, L100.0100, L501.5200, L500.4050 #### [facility] [address] [place], [address] Platelet mean volume (Bld) [Entitic vol] 10.0 fL Normal 6.2-12.0 [facility] Comment on above: Order Comment: Order Date: 03/24/25 Order Info: 0184-1 - CBCD Performed By: #### L 501.9520, L100.0100, L501.5200, L500.4050 #### [facility] [address] [place], [address] Platelets (Bld) [#/Vol] 317 10*3/uL Normal 150-450 [facility] Comment on above: Order Comment: Order Date: 03/24/25 Order Info: [id number] - CBCD Performed By: #### L 501.9520, L100.0100, L501.5200, L500.4050 #### [facility] [address] [place], [address] RBC (Bld) [#/Vol] 4.86 10*6/uL Normal 4.2-5.4 [facility] Comment on above: Order Comment: Order Date: 03/24/25 Order Info: [id number] - CBCD Performed By: #### L 501.9520, L100.0100, L501.5200, L500.4050 #### [facility] [address] [place], [address] RDW SD 43.6 fl Normal 35.1-43.9 [facility] Comment on above: Order Comment: Order Date: 03/24/25 Order Info: [id number] - CBCD Performed By: #### L 501.9520, L100.0100, L501.5200, L500.4050 #### [facility] [address] [place], [address] WBC (Bld) [#/Vol] 7.4 10*3/uL Normal 4.4-11.0 [facility] Comment on above: Order Comment: Order Date: 03/24/25 Order Info: [id number] - CBCD Performed By: #### L 501.9520, L100.0100, L501.5200, L500.4050 #### [facility] [address] [place], [address] Carbon dioxide, total [Moles /volume] in Central venous bloodOrdered By: Patrice Holland on 03-24-2025 CO2 [Moles/Vol] 27.3 mmol/L 21.0-32.0 [facility] Chloride assayOrdered By: Norberto Holland on 03-24-2025 Chloride [Moles/Vol] 102 mmol/L 98-108 [facility] Comprehensive Metabolic Prof ilon 03-24-2025 Albumin [Mass/Vol] 4.1 g/dL Normal 3.5-5.0 [facility] Comment on above: Order Comment: Order Date: 03/24/25 Order Info: [id number] - CMP Order Info: [id number] - MG Order Info: 3016-3 - TSH Performed By: #### L 501.9520, L100.0100, L501.5200, L500.4050 #### [facility] [address] [place], [address] Albumin/Globulin [Mass ratio] 1.3 {ratio} Normal 0.9-2.4 [facility] Comment on above: Order Comment: Order Date: 03/24/25 Order Info: [id number] - CMP Order Info: [id number] - MG Order Info: 301-3 - TSH Performed By: #### L 501.9520, L100.0100, L501.5200, L500.4050 #### [facility] [address] [place], [address] ALK PHOS 35 U/L Normal 35-104 [facility] Comment on above: Order Comment: Order Date: 03/24/25 Order Info: [id number] - CMP Order Info: [id number] - MG Order Info: 301-3 - TSH Performed By: #### L 501.9520, L100.0100, L501.5200, L500.4050 #### [facility] [address] [place], [place], [id number] ALT [Catalytic activity/Vol] 10 U/L Normal <=34 [facility] Comment on above: Order Comment: Order Date: 03/24/25 Order Info: [id number] - CMP Order Info: [id number] - MG Order Info: 301-3 - TSH Performed By: #### L 501.9520, L100.0100, L501.5200, L500.4050 #### [facility] [address] [place], [place], [address] AST [Catalytic activity/Vol] 14 U/L Normal <=31 [facility] Comment on above: Order Comment: Order Date: 03/24/25 Order Info: [id number] - CMP Order Info: [id number] - MG Order Info: 3016-3 - TSH Performed By: #### L 501.9520, L100.0100, L501.5200, L500.4050 #### [facility] [address] [place], [address] Bilirubin [Mass/Vol] 0.32 mg/dL Normal 0.00-1.30 [facility] Comment on above: Order Comment: Order Date: 03/24/25 Order Info: [id number] - CMP Order Info: [id number] - MG Order Info: 3016-3 - TSH Performed By: #### L 501.9520, L100.0100, L501.5200, L500.4050 #### [facility] [address] [place], [address] BUN/CRE 22.0 RATIO High 10-20 [facility] Comment on above: Order Comment: Order Date: 03/24/25 Order Info: [id number] - CMP Order Info: [id number] - MG Order Info: 3016-3 - TSH Performed By: #### L 501.9520, L100.0100, L501.5200, L500.4050 #### [facility] [address] [place], [address] Calcium [Mass/Vol] 9.3 mg/dL Normal 7.6-11.0 [facility] Comment on above: Order Comment: Order Date: 03/24/25 Order Info: [id number] - CMP Order Info: [id number] - MG Order Info: 301-3 - TSH Performed By: #### L 501.9520, L100.0100, L501.5200, L500.4050 #### [facility] [address] [place], [address] Chloride [Moles/Vol] 102 mmol/L Normal 98-108 [facility] Comment on above: Order Comment: Order Date: 03/24/25 Order Info: [id number] - CMP Order Info: [id number] - MG Order Info: 3016-3 - TSH Performed By: #### L 501.9520, L100.0100, L501.5200, L500.4050 #### [facility] [address] [place], [address] CO2 [Moles/Vol] 27.3 mmol/L Normal 21.0-32.0 [facility] Comment on above: Order Comment: Order Date: 03/24/25 Order Info: [id number] - CMP Order Info: [id number] - MG Order Info: 3015-3 - TSH Performed By: #### L 501.9520, L100.0100, L501.5200, L500.4050 #### [facility] [address] [place], [address] Creatinine [Mass/Vol] 0.70 mg/dL Normal 0.70-1.20 [facility] Comment on above: Order Comment: Order Date: 03/24/25 Order Info: [id number] - CMP Order Info: [id number] - MG Order Info: 3 - TSH Performed By: #### L 501.9520, L100.0100, L501.5200, L500.4050 #### [facility] [address] [place], [address] GAP 10 Normal 5-15 [facility] Comment on above: Order Comment: Order Date: 03/24/25 Order Info: [id number] - CMP Order Info: [id number] - MG Order Info: 3016-01 - TSH Performed By: #### L 501.9520, L100.0100, L501.5200, L500.4050 #### [facility] [address] [place], [address] GFR/1.73 sq M.predicted among non-blacks MDRD (S/P/Bld) [Vol rate/Area] 100 mL/min/{1.73_m2} Normal >60 [facility] Comment on above: Order Comment: Order Date: 03/24/25 Order Info: 0786-1 - CMP Order Info: [id number] - MG Order Info: 6-3 - TSH Result Comment: mL/m in/1.73m2 CKD-EPI Creatinine Equation (2020) Performed By: #### L 501.9520, L100.0100, L501.5200, L500.4050 #### [facility] [address] [place], [address] Globulin (S) [Mass/Vol] 3.1 g/dL Normal 2.2-4.2 [facility] Comment on above: Order Comment: Order Date: 03/24/25 Order Info: 0786-1 - CMP Order Info: [id number] - MG Order Info: 3015-3 - TSH Performed By: #### L 501.9520, L100.0100, L501.5200, L500.4050 #### [facility] [address] [place], [address] Glucose [Mass/Vol] 88 mg/dL Normal 70-99 [facility] Comment on above: Order Comment: Order Date: 03/24/25 Order Info: 0786-1 - CMP Order Info: [id number] - MG Order Info: 3016-01 - TSH Performed By: #### L 501.9520, L100.0100, L501.5200, L500.4050 #### [facility] [address] [place], [address] Potassium [Moles/Vol] 4.6 mmol/L Normal 3.3-5.1 [facility] Comment on above: Order Comment: Order Date: 03/24/25 Order Info: 071 - CMP Order Info: [id number] - MG Order Info: 3016-01 - TSH Performed By: #### L 501.9520, L100.0100, L501.5200, L500.4050 #### [facility] [address] [place], [address] Sodium [Moles/Vol] 140 mmol/L Normal 133-145 [facility] Comment on above: Order Comment: Order Date: 03/24/25 Order Info: 0786-1 - CMP Order Info: [id number] - MG Order Info: 3 - TSH Performed By: #### L 501.9520, L100.0100, L501.5200, L500.4050 #### [facility] [address] [place], [address] T PROT 7.2 g/dL Normal 5.9-8.4 [facility] Comment on above: Order Comment: Order Date: 03/24/25 Order Info: 0786-1 - CMP Order Info: [id number] - MG Order Info: 3016-3 - TSH Performed By: #### L 501.9520, L100.0100, L501.5200, L500.4050 #### [facility] [address] [place], [place], [address] Urea nitrogen [Mass/Vol] 15 mg/dL Normal 4-19 [facility] Comment on above: Order Comment: Order Date: 03/24/25 Order Info: [id number] - CMP Order Info: [id number] - MG Order Info: 3016-3 - TSH Performed By: #### L 501.9520, L100.0100, L501.5200, L500.4050 #### [facility] [address] [place], [place], [address] Eosinophil percentageOrdered By: Patrice Holland on 03-24-2025 Eosinophils/100 WBC (Bld) 2.2 % 0-5 [facility] Erythrocyte distribution wid th ratioOrdered By: Patrice Holland on 03-24-2025 Erythrocyte distribution width (RBC) [Ratio] 13.4 % 11.6-14.6 [facility] Erythrocyte distribution wid th standard deviationOrdered By: Patrice Holland on 03-24-2025 Erythrocyte distribution width (RBC) [Ratio] 43.6 fl 35.1-43.9 [facility] Glomerular filtration rate ( GFR) estimation/1.73 sq m using serum, plasma, or whole bOrdered By: Patrice Holland on 03-24-2025 GFR/1.73 sq M.predicted among non-blacks MDRD (S/P/Bld) [Vol rate/Area] 100 mL/min/{1.73_m2} >60 [facility] Comment on above: mL/min/1.73m2 CKD-EP I Creatinine Equation (2020) Hematocrit Auto (Bld) [Volum e fraction]Ordered By: Patrice Holland on 03-24-2025 Hematocrit (Bld) [Volume fraction] 42.6 % 37-47 [facility] Hemoglobin measurementOrdere d By: Patrice Holland on 03-24-2025 Hemoglobin (Bld) [Mass/Vol] 13.6 g/dL 12.0-15.0 [facility] Immature granulocytes/100 WB C Auto (Bld)Ordered By: Patrice Holland on 03-24-2025 Immature granulocytes/100 WBC (Bld) 0.100 % 0.0-0.9 [facility] Comment on above: IG% - Immature Granu locytes (promyelocytes, myelocytes and metamyelocytes) > 1% indicates that a LEFT SHIFT is Present. Laboratory - Chemistry and C hemistry - challengeOrdered By: Patrice Holland on 03-24-2025 AST [Catalytic activity/Vol] 14 U/L <32 [facility] MCV (mean corpuscular volume ) determinationOrdered By: Patrice Holland on 03-24-2025 MCV (RBC) [Entitic vol] 87.7 fL 81-99 [facility] Magnesiumon 03-24-2025 Magnesium [Mass/Vol] 2.3 mg/dL High 1.5-2.2 [facility] Comment on above: Order Comment: Order Date: 03/24/25 Order Info: 0786-1 - CMP Order Info: [id number] - MG Order Info: 3016-3 - TSH Performed By: #### L 501.9520, L100.0100, L501.5200, L500.4050 #### [facility] [address] [place] [address], [address] Magnesium measurement (mass/ volume)Ordered By: Patrice Holland on 03-24-2025 Magnesium (Unsp spec) [Mass/Vol] 2.3 mg/dL High 1.5-2.2 [facility] Mean corpuscular hemoglobin (MCH) determinationOrdered By: Patrice Holland on 03-24-2025 MCH (RBC) [Entitic mass] 28.0 pg 27.0-32.0 [facility] Mean corpuscular hemoglobin concentration (MCHC) determinationOrdered By: Patrice Holland on 03-24-2025 MCHC (RBC) [Mass/Vol] 31.9 g/dL Low 32-36 [facility] Mean platelet volume determi nationOrdered By: Patrice Holland on 03-24-2025 Platelet mean volume (Bld) [Entitic vol] 10.0 fL 6.2-12.0 [facility] Monocyte percentageOrdered B y: Patrice Holland on 03-24-2025 Monocytes/100 WBC (Bld) 5.4 % 0-10 [facility] Neutrophil percentageOrdered By: Patrice Holland on 03-24-2025 Neutrophils/100 WBC (Bld) 65.5 % 47-70 [facility] Nucleated red blood cell per centageOrdered By: Patrice Holland on 03-24-2025 Nucleated RBC/100 WBC (Bld) [Ratio] 0 % 0-5 [facility] Platelet countOrdered By: Norberto Holland on 03-24-2025 Platelets (Bld) [#/Vol] 317 10*3/uL 150-450 [facility] Potassium measurement (mass/ volume)Ordered By: Patrice Holland on 03-24-2025 Potassium (Unsp spec) [Mass/Vol] 4.6 mmol/L 3.3-5.1 [facility] RBC Auto (Bld) [#/Vol]Ordere d By: Patrice Holland on 03-24-2025 RBC (Bld) [#/Vol] 4.86 10*6/uL 4.2-5.4 [facility] Serum creatinine measurement (mass/volume)Ordered By: Patrice Holland on 03-24-2025 Creatinine [Mass/Vol] 0.70 mg/dL 0.70-1.20 [facility] Serum globulin measurementOr dered By: Patrice Holland on 03-24-2025 Globulin (S) [Mass/Vol] 3.1 g/dL 2.2-4.2 [facility] Serum glucose measurement (m ass/volume)Ordered By: Patrice Holland on 03-24-2025 Glucose [Mass/Vol] 88 mg/dL 70-99 [facility] Serum or plasma alanine armstrong otransferase (ALT) measurementOrdered By: Patrice Holland on 03-24-2025 ALT [Catalytic activity/Vol] 10 U/L <35 [facility] Serum or plasma albumin paula urement (mass/volume)Ordered By: Patrice Holland on 03-24-2025 Albumin [Mass/Vol] 4.1 g/dL 3.5-5.0 [facility] Serum or plasma albumin/glob ulin mass ratioOrdered By: Patrice Holland on 03-24-2025 Albumin/Globulin [Mass ratio] 1.3 {ratio} 0.9-2.4 [facility] Serum or plasma alkaline jesús sphatase measurementOrdered By: Patrice Holland on 03-24-2025 ALP [Catalytic activity/Vol] 35 U/L 35-104 [facility] Serum or plasma calcium paula urement (mass/volume)Ordered By: Patrice Holland on 03-24-2025 Calcium [Mass/Vol] 9.3 mg/dL 7.6-11.0 [facility] Serum or plasma urea nitroge n measurement (mass/volume)Ordered By: Patrice Holland on 03-24-2025 Urea nitrogen [Mass/Vol] 15 mg/dL 4-19 [facility] Sodium levelOrdered By: Patrice Holland on 03-24-2025 Sodium [Moles/Vol] 140 mmol/L 133-145 [facility] TSH DL <= 0.005 mIU/L QnOrde red By: Patrice Holland on 03-24-2025 TSH Qn 2.280 uIU/mL 0.300-4.200 [facility] Thyroid Stim Hormone (TSH)on 03-24-2025 TSH 2.280 uIU/mL Normal 0.300-4.200 [facility] Comment on above: Order Comment: Order Date: 03/24/25 Order Info: 0786-1 - CMP Order Info: [id number] - MG Order Info: 3016-3 - TSH Performed By: #### L 501.9520, L100.0100, L501.5200, L500.4050 #### [facility] [address] [place], [address] Total proteinOrdered By: Marta Holland on 03-24-2025 Protein [Mass/Vol] 7.2 g/dL 5.9-8.4 [facility] White blood cell (WBC) count Ordered By: Patrice Holland on 03-24-2025 WBC (Bld) [#/Vol] 7.4 10*3/uL 4.4-11.0 [facility] Basic metabolic 2000 panelOr dered By: Kenrick Arriola on 08-02-2024 Anion gap [Moles/Vol] 13 mmol/L Normal 6-18 [facility] Comment on above: Performed By: #### 2 4321-2 #### [facility] [address] [place] [address] Calcium [Mass/Vol] 10.0 mg/dL Normal 8.9-10.3 [facility] Comment on above: Performed By: #### 2 4321-2 #### [facility] [address] [place] [address] Chloride [Moles/Vol] 103 mmol/L Normal 98-107 [facility] Comment on above: Performed By: #### 2 4321-2 #### [facility] [address] [place] [address] CO2 [Moles/Vol] 25 mmol/L Normal 22-32 [facility] Comment on above: Performed By: #### 2 4321-2 #### [facility] [address] [place] [address] Creatinine [Mass/Vol] 0.78 mg/dL Normal 0.60-1.30 [facility] Comment on above: Performed By: #### 2 4321-2 #### [facility] [address] [place] [address] GFR/1.73 sq M.predicted among non-blacks MDRD (S/P/Bld) [Vol rate/Area] 88 mL/min/{1.73_m2} Normal >=60 [facility] Comment on above: Calculation based on the?Chronic Kidney Disease Epidemiology Collaboration (CKD-EPI) equation refit?without adjustment for race. Result Comment: Calc ulation based on the?Chronic Kidney Disease Epidemiology Collaboration (CKD-EPI) equation refit?without adjustment for race. Performed By: #### 2 4321-2 #### [facility] [address] [place] [address] Glucose [Mass/Vol] 83 mg/dL Normal 70-99 [facility] Comment on above: Performed By: #### 2 4321-2 #### [facility] [address] [place] [address] Potassium [Moles/Vol] 4.5 mmol/L Normal 3.6-5.1 [facility] Comment on above: Performed By: #### 2 4321-2 #### [facility] [address] [place] [address] Sodium [Moles/Vol] 141 mmol/L Normal 136-145 [facility] Comment on above: Performed By: #### 2 4321-2 #### [facility] [address] [place] [address] Urea nitrogen [Mass/Vol] 25 mg/dL High 8-20 [facility] Comment on above: Performed By: #### 2 4321-2 #### [facility] [address] [place] [address] Urea nitrogen/Creatinine [Mass ratio] 32.1 mg/mg High 12.0-20.0 [facility] Comment on above: Performed By: #### 2 4321-2 #### [facility] [address] [place] [address] CBC W Differential panel, me thod unspecified (Bld)Ordered By: Kenrick Arriola on 08-02-2024 Basophils (Bld) [#/Vol] 0.03 10*3/uL Normal 0.00-0.20 [facility] Comment on above: Performed By: #### 6 9742-5 #### [facility] [address] [place] [address] Basophils/100 WBC (Bld) 0.4 % Normal 0.0-2.0 [facility] Comment on above: Performed By: #### 6 9742-5 #### [facility] [address] [place] [address] Eosinophils (Bld) [#/Vol] 0.10 10*3/uL Normal 0.00-0.70 [facility] Comment on above: Performed By: #### 6 9742-5 #### [facility] [address] [place] [address] Eosinophils/100 WBC (Bld) 1.2 % Normal 0.0-7.0 [facility] Comment on above: Performed By: #### 6 9742-5 #### [facility] [address] [place] [address] Erythrocyte distribution width (RBC) [Ratio] 13.4 % Normal 11.0-14.8 [facility] Comment on above: Performed By: #### 6 9742-5 #### [facility] [address] [place] [address] Hematocrit (Bld) [Volume fraction] 42.9 % Normal 34.3-47.9 [facility] Comment on above: Performed By: #### 6 9742-5 #### [facility] [address] [place] [address] Hemoglobin (Bld) [Mass/Vol] 13.8 g/dL Normal 12.0-16.0 [facility] Comment on above: Performed By: #### 6 9742-5 #### [facility] [address] [place] [address] Immature granulocytes (Bld) [#/Vol] 0.03 10*3/uL Normal 0.00-0.10 [facility] Comment on above: Performed By: #### 6 9742-5 #### [facility] [address] [place] [address] Immature granulocytes/100 WBC (Bld) 0.4 % Normal 0.0-1.2 [facility] Comment on above: Performed By: #### 6 9742-5 #### [facility] [address] [place] [address] Lymphocytes (Bld) [#/Vol] 2.05 10*3/uL Normal 1.00-4.80 [facility] Comment on above: Performed By: #### 6 9742-5 #### [facility] [address] [place] [address] Lymphocytes/100 WBC (Bld) 24.0 % Normal 17.9-49.6 [facility] Comment on above: Performed By: #### 6 9742-5 #### [facility] [address] [place] [address] MCHC (RBC) [Mass/Vol] 32.2 g/dL Normal 30.8-35.3 [facility] Comment on above: Performed By: #### 6 9742-5 #### [facility] [address] [place] [address] MCV (RBC) [Entitic vol] 88.1 fL Normal 80.0-97.0 [facility] Comment on above: Performed By: #### 6 9742-5 #### [facility] [address] [place] [address] Monocytes (Bld) [#/Vol] 0.40 10*3/uL Normal 0.00-0.90 [facility] Comment on above: Performed By: #### 6 9742-5 #### [facility] [address] [place] [address] Monocytes/100 WBC (Bld) 4.7 % Normal 0.0-12.0 [facility] Comment on above: Performed By: #### 6 9742-5 #### [facility] [address] [place] [address] Neutrophils/100 WBC (Bld) 69.3 % Normal 38.1-75.5 [facility] Comment on above: Performed By: #### 6 9742-5 #### [facility] [address] [place] [address] Platelet mean volume (Bld) [Entitic vol] 10.1 fL Normal 6.2-12.1 [facility] Comment on above: Performed By: #### 6 9742-5 #### [facility] [address] [place] [address] Platelets (Bld) [#/Vol] 324 10*3/uL Normal 142-424 [facility] Comment on above: Performed By: #### 6 9742-5 #### [facility] [address] [place] [address] RBC (Bld) [#/Vol] 4.87 10*6/uL Normal 3.74-5.34 [facility] Comment on above: Performed By: #### 6 9742-5 #### [facility] [address] [place] [address] WBC (Bld) [#/Vol] 8.6 10*3/uL Normal 4.6-10.2 [facility] Comment on above: Performed By: #### 6 9742-5 #### [facility] [address] [place] [address]26 CBC W Diff pnl,unspecified Bld 28.3 pcg 27.0-34.0 [facility] CBC W Diff pnl,unspecified Bld 5.94 K/mcL 1.80-7.70 [facility] CBC W Differential panel, me thod unspecified (Bld)on 08-02-2024 MCH 28.3 pcg Normal 27.0-34.0 [facility] Comment on above: Performed By: #### 6 9742-5 #### [facility] [address] [place] [address] Neutrophils Absolute 5.94 K/mcL Normal 1.80-7.70 [facility] Comment on above: Performed By: #### 6 9742-5 #### [facility] [address] [place] [address] HbA1c (Bld) [Mass fraction]o n 08-02-2024 Mean Bld Glu Estim. 108 mg/dL Normal [facility] Comment on above: Order Comment: HbA1c values of 5.7-6.4 percent indicate an increased risk for developing diabetes mellitus. HbA1c values greater than or equal to 6.5 percent are diagnostic of diabetes mellitus. For diagnosis of diabetes in individuals without unequivocal hyperglycemia, results should be confirmed by repeat testing. Performed By: #### 4 548-4 #### [facility] [address] [place] [address] HbA1c (Bld) [Mass fraction]O rdered By: Kenrick Arriola on 08-02-2024 HbA1c MFr Bld 108 mg/dL [facility] [facility] HbA1c MFr BldOrdered By: Pagan on 08-02-2024 HbA1c (Bld) [Mass fraction] 5.4 % Normal <=5.6 [facility] Comment on above: Order Comment: HbA1c values of 5.7-6.4 percent indicate an increased risk for developing diabetes mellitus. HbA1c values greater than or equal to 6.5 percent are diagnostic of diabetes mellitus. For diagnosis of diabetes in individuals without unequivocal hyperglycemia, results should be confirmed by repeat testing. Performed By: #### 4 548-4 #### [facility] [address] [place] [address] CBC W Auto Differential pane l (Bld)on 07-30-2024 Basophils (Bld) [#/Vol] 0.04 10*3/uL Normal <0.11 [facility] Comment on above: Order Comment: Speci men Type: BLOOD SPECIMEN Ordering Facility: [facility] Address: [address] [place] [address] Performed By: #### 5 7021-8, 69009-4, 41297-0, 59819-6, 3016-3 #### [facility] CLIA [id number] [address] [place] [address] [place] Basophils/100 WBC (Bld) 0.4 % Normal [facility] Comment on above: Order Comment: Speci men Type: BLOOD SPECIMEN Ordering Facility: [facility] Address: [address] [place] [address] Performed By: #### 5 7021-8, 72117-0, 62412-4, 37268-6, 3016-3 #### [facility] CLIA [id number] [address] [place] [address] [place] Differential cell count method Nom (Bld) Auto Normal [facility] Comment on above: Order Comment: Speci men Type: BLOOD SPECIMEN Ordering Facility: [facility] Address: [address] [place] [address] Performed By: #### 5 7021-8, 15699-2, 40496-7, 84316-3, 3016-3 #### [facility] CLIA [id number] [address] [place] [address] [place] Eosinophils (Bld) [#/Vol] 0.07 10*3/uL Normal <0.46 [facility] Comment on above: Order Comment: Speci men Type: BLOOD SPECIMEN Ordering Facility: [facility] Address: [address] [place] [address] Performed By: #### 5 7021-8, 91830-3, 27615-6, 79701-6, 3016-3 #### [facility] CLIA [id number] [address] [place], [place] [address] [place] Eosinophils/100 WBC (Bld) 0.8 % Normal [facility] Comment on above: Order Comment: Speci men Type: BLOOD SPECIMEN Ordering Facility: [facility] Address: [address] [place] [address] Performed By: #### 5 7021-8, 89894-1, 93539-7, 59812-3, 3016-3 #### [facility] CLIA [id number] [address] [place], [place] [address] [place] Erythrocyte distribution width (RBC) [Ratio] 13.3 % Normal 11.5-15.0 [facility] Comment on above: Order Comment: Speci men Type: BLOOD SPECIMEN Ordering Facility: [facility] Address: [address] [place] [address] Performed By: #### 5 7021-8, 36053-7, 81036-9, 18582-6, 3016-3 #### [facility] CLIA [id number] [address] [place] [address] [place] Hematocrit (Bld) [Volume fraction] 45.3 % Normal 36.0-46.0 [facility] Comment on above: Order Comment: Speci men Type: BLOOD SPECIMEN Ordering Facility: [facility] Address: [address] [place] [address] Performed By: #### 5 7021-8, 81875-7, 56156-6, 48566-2, 3016-3 #### [facility] CLIA [id number] [address] [place], [place] [address] [place] Hemoglobin (Bld) [Mass/Vol] 14.1 g/dL Normal 11.5-15.5 [facility] Comment on above: Order Comment: Speci men Type: BLOOD SPECIMEN Ordering Facility: [facility] Address: [address] [place], [place] [address] Performed By: #### 5 7021-8, 18196-8, 99498-6, 14654-9, 3016-3 #### [facility] CLIA [id number] [address] [place], [place] [address] [place] Immature granulocytes (Bld) [#/Vol] 10*3/uL Normal <0.10 [facility] Comment on above: Order Comment: Speci men Type: BLOOD SPECIMEN Ordering Facility: [facility] Address: [address] [place] [address] Performed By: #### 5 7021-8, 37886-7, 10955-5, 68424-8, 3016-3 #### [facility] CLIA [id number] [address] [place] [address] [place] Immature granulocytes/100 WBC (Bld) 0.2 % Normal [facility] Comment on above: Order Comment: Speci men Type: BLOOD SPECIMEN Ordering Facility: [facility] Address: [address] [place] [address] Performed By: #### 5 7021-8, 37518-1, 55220-0, 01915-5, 3016-3 #### [facility] CLIA [id number] [address] [place] [address] [place] Lymphocytes (Bld) [#/Vol] 2.16 10*3/uL Normal 1.00-4.00 [facility] Comment on above: Order Comment: Speci men Type: BLOOD SPECIMEN Ordering Facility: [facility] Address: [address] [place] [address] Performed By: #### 5 7021-8, 84394-0, 83739-4, 06421-4, 3016-3 #### [facility] CLIA [id number] [address] [place], [place] [address] [place] Lymphocytes/100 WBC (Bld) 23.7 % Normal [facility] Comment on above: Order Comment: Speci men Type: BLOOD SPECIMEN Ordering Facility: [facility] Address: [address] [place] [address] Performed By: #### 5 7021-8, 52597-0, 62066-4, 87768-8, 3016-3 #### [facility] CLIA [id number] [address] [place] [address] [place] MCH (RBC) [Entitic mass] 28.0 pg Normal 26.0-34.0 [facility] Comment on above: Order Comment: Speci men Type: BLOOD SPECIMEN Ordering Facility: [facility] Address: [address] [place] [address] Performed By: #### 5 7021-8, 01686-8, 18090-1, 80803-1, 3016-3 #### [facility] CLIA [id number] [address] [place] [address] [place] MCHC (RBC) [Mass/Vol] 31.1 g/dL Normal 30.5-36.0 [facility] Comment on above: Order Comment: Speci men Type: BLOOD SPECIMEN Ordering Facility: [facility] Address: [address] [place] [address] Performed By: #### 5 7021-8, 07550-0, 33320-9, 88502-4, 3016-3 #### [facility] CLIA [id number] [address] [place] [address] [place] MCV (RBC) [Entitic vol] 89.9 fL Normal 80.0-100.0 [facility] Comment on above: Order Comment: Speci men Type: BLOOD SPECIMEN Ordering Facility: [facility] Address: [address] [place] [address] Performed By: #### 5 7021-8, 24763-7, 48674-1, 85826-0, 3016-3 #### [facility] CLIA [id number] [address] [place], [place] [address] [place] Monocytes (Bld) [#/Vol] 0.46 10*3/uL Normal <0.87 [facility] Comment on above: Order Comment: Speci men Type: BLOOD SPECIMEN Ordering Facility: [facility] Address: [address] [place] [address] Performed By: #### 5 7021-8, 27761-1, 31133-6, 65800-8, 3016-3 #### [facility] CLIA [id number] [address] [place] [address] [place] Monocytes/100 WBC (Bld) 5.0 % Normal [facility] Comment on above: Order Comment: Speci men Type: BLOOD SPECIMEN Ordering Facility: [facility] Address: [address] [place] [address] Performed By: #### 5 7021-8, 03329-3, 65319-1, 05229-7, 3016-3 #### [facility] CLIA [id number] [address] [place], [place] [address] [place] Neutrophils (Bld) [#/Vol] 6.38 10*3/uL Normal 1.45-7.50 [facility] Comment on above: Order Comment: Speci men Type: BLOOD SPECIMEN Ordering Facility: [facility] Address: [address] [place] [address] Performed By: #### 5 7021-8, 77986-8, 11874-6, 36841-1, 3016-3 #### [facility] CLIA [id number] [address] [place], [place] [address] [place] Neutrophils/100 WBC (Bld) 69.9 % Normal [facility] Comment on above: Order Comment: Speci men Type: BLOOD SPECIMEN Ordering Facility: [facility] Address: [address] [place] [address] Performed By: #### 5 7021-8, 32898-7, 35605-7, 24625-1, 3016-3 #### [facility] CLIA [id number] [address] [place] [address] [place] Nucleated RBC (Bld) [#/Vol] 10*3/uL Normal <0.01 [facility] Comment on above: Order Comment: Speci men Type: BLOOD SPECIMEN Ordering Facility: [facility] Address: [address] [place] [address] Performed By: #### 5 7021-8, 69504-0, 23331-6, 02170-4, 3016-3 #### [facility] CLIA [id number] [address] [place], [place] [address] [place] Nucleated RBC/100 WBC (Bld) [Ratio] 0.0 /100 WBC Normal [facility] Comment on above: Order Comment: Speci men Type: BLOOD SPECIMEN Ordering Facility: [facility] Address: [address] [place] [address] Performed By: #### 5 7021-8, 90812-2, 31242-7, 37291-7, 3016-3 #### [facility] CLIA [id number] [address] [place] [address] [place] Platelet mean volume (Bld) [Entitic vol] 10.9 fL Normal 9.0-12.7 [facility] Comment on above: Order Comment: Speci men Type: BLOOD SPECIMEN Ordering Facility: [facility] Address: [address] [place] [address] Performed By: #### 5 7021-8, 86249-3, 94696-4, 99240-1, 3016-3 #### [facility] CLIA [id number] [address] [place], [place] [address] [place] Platelets (Bld) [#/Vol] 313 10*3/uL Normal 150-400 [facility] Comment on above: Order Comment: Speci men Type: BLOOD SPECIMEN Ordering Facility: [facility] Address: [address] [place] [address] Performed By: #### 5 7021-8, 71845-6, 03108-3, 50162-4, 3016-3 #### [facility] CLIA [id number] [address] [place], [place] [address] [place] RBC (Bld) [#/Vol] 5.04 10*6/uL Normal 3.90-5.20 [facility] Comment on above: Order Comment: Speci men Type: BLOOD SPECIMEN Ordering Facility: [facility] Address: [address] [place] [address] Performed By: #### 5 7021-8, 27478-9, 88909-4, 92915-4, 3016-3 #### [facility] CLIA [id number] [address] [place] [address] [place] WBC (Bld) [#/Vol] 9.13 10*3/uL Normal 3.70-11.00 [facility] Comment on above: Order Comment: Speci men Type: BLOOD SPECIMEN Ordering Facility: [facility] Address: [address] [place] [address] Performed By: #### 5 7021-8, 69557-0, 72610-4, 61316-3, 3016-3 #### [facility] CLIA [id number] [address] [place] [address] [place] Comprehensive metabolic 2000 panelon 07-30-2024 Albumin [Mass/Vol] 4.2 g/dL Normal 3.9-4.9 [facility] Comment on above: Order Comment: Speci men Type: BLOOD SPECIMEN Ordering Facility: [facility] Address: [address] [place] [address] Performed By: #### 5 7021-8, 51862-6, 79111-3, 80696-5, 3016-3 #### [facility] CLIA [id number] [address] [place] [address] [place] ALP [Catalytic activity/Vol] 25 U/L Low 34-123 [facility] Comment on above: Order Comment: Speci men Type: BLOOD SPECIMEN Ordering Facility: [facility] Address: [address] [place] [address] Performed By: #### 5 7021-8, 16297-5, 24806-9, 60148-9, 3016-3 #### [facility] CLIA [id number] [address] [place] [address] [place] ALT [Catalytic activity/Vol] 18 U/L Normal 7-38 [facility] Comment on above: Order Comment: Speci men Type: BLOOD SPECIMEN Ordering Facility: [facility] Address: [address] [place] [address] Performed By: #### 5 7021-8, 64209-2, 02030-7, 62719-7, 3016-3 #### [facility] CLIA [id number] [address] [place] [address] [place] Anion gap [Moles/Vol] 14 mmol/L Normal 8-15 [facility] Comment on above: Order Comment: Speci men Type: BLOOD SPECIMEN Ordering Facility: [facility] Address: [address] [place] [address] Performed By: #### 5 7021-8, 62761-7, 71009-9, 81344-1, 3016-3 #### [facility] CLIA [id number] [address] [place], [place] [address] [place] AST [Catalytic activity/Vol] 28 U/L Normal 13-35 [facility] Comment on above: Order Comment: Speci men Type: BLOOD SPECIMEN Ordering Facility: [facility] Address: [address] [place] [address] Performed By: #### 5 7021-8, 21245-6, 76821-5, 67798-2, 3016-3 #### [facility] CLIA [id number] [address] [place] [address] [place] Bilirubin [Mass/Vol] 0.4 mg/dL Normal 0.2-1.3 [facility] Comment on above: Order Comment: Speci men Type: BLOOD SPECIMEN Ordering Facility: [facility] Address: [address] [place] [address] Performed By: #### 5 7021-8, 12623-6, 72191-2, 55898-0, 3016-3 #### [facility] CLIA [id number] [address] [place] [address] [place] Calcium [Mass/Vol] 9.5 mg/dL Normal 8.5-10.2 [facility] Comment on above: Order Comment: Speci men Type: BLOOD SPECIMEN Ordering Facility: [facility] Address: [address] [place] [address] Performed By: #### 5 7021-8, 53139-1, 03254-1, 91028-4, 3016-3 #### [facility] CLIA [id number] [address] [place] [address] [place] Chloride [Moles/Vol] 103 mmol/L Normal 98-107 [facility] Comment on above: Order Comment: Speci men Type: BLOOD SPECIMEN Ordering Facility: [facility] Address: [address] [place], [place] [address] Performed By: #### 5 7021-8, 28107-4, 30133-4, 08728-7, 3016-3 #### [facility] CLIA [id number] [address] [place], [place] [address] [place] CO2 [Moles/Vol] 22 mmol/L Normal 22-30 [facility] Comment on above: Order Comment: Speci men Type: BLOOD SPECIMEN Ordering Facility: [facility] Address: [address] [place] [address] Performed By: #### 5 7021-8, 18389-8, 97184-7, 50183-4, 3016-3 #### [facility] CLIA [id number] [address] [place], [place] [address] [place] Creatinine [Mass/Vol] 0.69 mg/dL Normal 0.58-0.96 [facility] Comment on above: Order Comment: Speci men Type: BLOOD SPECIMEN Ordering Facility: [facility] Address: [address] [place] [address] Performed By: #### 5 7021-8, 02560-2, 63206-9, 60019-5, 3016-3 #### [facility] CLIA [id number] [address] [place] [address] [place] Creatinine and Glomerular filtration rate.predicted panel (S/P/Bld) 100 mL/min/1.73m??? Normal >=60 [facility] Comment on above: Order Comment: Speci men Type: BLOOD SPECIMEN Ordering Facility: [facility] Address: [address] [place] [address] Result Comment: Ramona mated Glomerular Filtration Rate (eGFR) is calculated using the 2020 CKD-EPI creatinine equation. This equation utilizes serum creatinine, sex, and age as parameters. The creatinine assay has traceable calibration to isotope dilution-mass spectrometry. Refer to KDIGO guidelines for clinical interpretation. In patients with unstable renal function, e.g. those with acute kidney injury, the eGFR may not accurately reflect actual GFR. Performed By: #### 5 7021-8, 68514-8, 33027-0, 46112-5, 3016-3 #### [facility] CLIA [id number] [address] [address] [place] Glucose [Mass/Vol] 88 mg/dL Normal 74-99 [facility] Comment on above: Order Comment: Clem dhillon Type: BLOOD SPECIMEN Ordering Facility: [facility] Address: [address] [place] [address] Result Comment: The [place] Diabetes Association (ADA) provides guidance for cutoff values for fasting glucose and random glucose. The ADA defines fasting as no caloric intake for at least 8 hours. Fasting plasma glucose results between 100 to 125 mg/dL indicate increased risk for diabetes (prediabetes). Fasting plasma glucose results greater than or equal to 126 mg/dL meet the criteria for diagnosis of diabetes. In the absence of unequivocal hyperglycemia, results should be confirmed by repeat testing. In a patient with classic symptoms of hyperglycemia or hyperglycemic crisis, random plasma glucose results greater than or equal to 200 mg/dL meet the criteria for diagnosis of diabetes. Reference: Standards of Medical Care in Diabetes 2016, [place] Diabetes Association. Diabetes Care. 2016.39(Suppl 1). Performed By: #### 5 7021-8, 08087-7, 71783-2, 34417-9, 6-3 #### [facility] CLIA [id number] [address] [place] [address] [place] Potassium [Moles/Vol] 4.6 mmol/L Normal 3.7-5.1 [facility] Comment on above: Order Comment: Clem dhillon Type: BLOOD SPECIMEN Ordering Facility: [facility] Address: [address] [place] [address] Performed By: #### 5 7021-8, 06800-9, 05659-3, 43826-2, 3016-3 #### [facility] CLIA [id number] [address] [place] [address] [place] Protein [Mass/Vol] 7.3 g/dL Normal 6.3-8.0 [facility] Comment on above: Order Comment: Speci men Type: BLOOD SPECIMEN Ordering Facility: [facility] Address: [address] [place] [address] Performed By: #### 5 7021-8, 14372-4, 48448-6, 92155-7, 3016-3 #### [facility] CLIA [id number] [address] [place], [place] [address] [place] Sodium [Moles/Vol] 139 mmol/L Normal 136-144 [facility] Comment on above: Order Comment: Speci men Type: BLOOD SPECIMEN Ordering Facility: [facility] Address: [address] [place] [address] Performed By: #### 5 7021-8, 61733-6, 46729-5, 19195-8, 3016-3 #### [facility] CLIA [id number] [address] [place], [place] [address] [place] Urea nitrogen [Mass/Vol] 21 mg/dL Normal 7-21 [facility] Comment on above: Order Comment: Speci men Type: BLOOD SPECIMEN Ordering Facility: [facility] Address: [address] [place] [address] Performed By: #### 5 7021-8, 41839-1, 23096-0, 19517-1, 3016-3 #### [facility] CLIA [id number] [address] [place], [place] [address] [place] HbA1c (Bld)on 07-30-2024 Average glucose Estimated from glycated hemoglobin (Bld) [Mass/Vol] 108 mg/dL Normal [facility] Comment on above: Order Comment: Speci men Type: BLOOD SPECIMEN Ordering Facility: [facility] Address: [address] [place] [address] Result Comment: eAG: (Estimated average glucose) is a calculated value from HgbA1c and is sales representative cash registers of the average blood glucose level in the last 2-3 month period. Performed By: #### 5 7021-8, 11365-9, 22102-9, 09901-1, 3016-3 #### [facility] CLIA [id number] [address] [place] [address] [place] HbA1c (Bld) [Mass fraction] 5.4 % Normal 4.3-5.6 [facility] Comment on above: Order Comment: Clem dhillon Type: BLOOD SPECIMEN Ordering Facility: [facility] Address: [address] [place] [address] Result Comment: [place] Diabetes Association guidelines indicate that patients with HgbA1c in the range 5.7-6.4% are at increased risk for development of diabetes, and intervention by lifestyle modification may be beneficial. HgbA1c greater or equal to 6.5% is considered diagnostic of diabetes. Performed By: #### 5 7021-8, 56481-1, 32985-5, 35725-7, 3016-3 #### [facility] CLIA [id number] [address] [place], [place] [address] [place] Lipid 1996 panelon 4 Cholesterol [Mass/Vol] 187 mg/dL Normal <200 [facility] Comment on above: Order Comment: Clem dhillon Type: BLOOD SPECIMEN Ordering Facility: [facility] Address: [address] [place] [address] Result Comment: <200 mg/dL, Desirable 200-239 mg/dL, Borderline high >239 mg/dL, High Performed By: #### 5 7021-8, 16964-9, 13289-5, 44227-8, 3016-3 #### [facility] CLIA [id number] [address] [address] [place] Cholesterol in HDL [Mass/Vol] 66 mg/dL Normal >39 [facility] Comment on above: Order Comment: Clem dhillon Type: BLOOD SPECIMEN Ordering Facility: [facility] Address: [address] [place] [address] Result Comment: 40-5 9 mg/dL, Acceptable >59 mg/dL, High: Negative risk factor for coronary heart disease <40 mg/dL, Low: Positive risk factor for coronary heart disease Performed By: #### 5 7021-8, 11383-9, 93772-9, 93722-7, 3016-3 #### [facility] CLIA [id number] [address] [place] [address] [place] Cholesterol in LDL [Mass/Vol] 109 mg/dL High <100 [facility] Comment on above: Order Comment: Clem dhillon Type: BLOOD SPECIMEN Ordering Facility: [facility] Address: [address] [place] [address] Result Comment: <100 mg/dL, Optimal 100-129 mg/dL, Near optimal/above optimal 130-159 mg/dL, Borderline high 160-189 mg/dL, High >189 mg/dL, Very high Secondary prevention optimal LDL Cholesterol levels are recommended to be < 70 mg/dL Performed By: #### 5 7021-8, 50607-0, 15193-9, 18290-8, 3016-3 #### [facility] CLIA [id number] [address] [place] [address] [place] Cholesterol in LDL/Cholesterol in HDL [Mass ratio] 1.65 {ratio} Normal <2.54 [facility] Comment on above: Order Comment: Clem dhillon Type: BLOOD SPECIMEN Ordering Facility: [facility] Address: [address] [place] [address] Result Comment: Heron scott: 1. National Cholesterol Education Program ATP III Guideline At-A-Glance Quick Desk Reference: National Heart, Lung, and Blood [place]. National Institutes of Health. 2001: NIH Publication No. 01-3305. 2. An International Atherosclerosis Society position paper: global recommendations for the management of dyslipidemia: executive summary, Atherosclerosis. 2014: 232(2):410-413. Performed By: #### 5 7021-8, 71891-2, 44522-7, 28217-3, 3016-3 #### [facility] CLIA [id number] [address] [address] [place] Cholesterol in VLDL [Mass/Vol] 12 mg/dL Normal <30 [facility] Comment on above: Order Comment: Speci men Type: BLOOD SPECIMEN Ordering Facility: [facility] Address: [address] [place] [address] Performed By: #### 5 7021-8, 70040-8, 39318-4, 89553-6, 3016-3 #### [facility] CLIA [id number] [address] [address] [place] Cholesterol non HDL [Mass/Vol] 121 mg/dL Normal <130 [facility] Comment on above: Order Comment: Clem dhillon Type: BLOOD SPECIMEN Ordering Facility: [facility] Address: [address] [place] [address] Result Comment: <130 mg/dL, Optimal 130-159 mg/dL, Near optimal/above optimal 160-189 mg/dL, Borderline high 190-219 mg/dL, High >219 mg/dL, Very high Secondary prevention optimal non HDL Cholesterol levels are recommended to be <100 mg/dL Performed By: #### 5 7021-8, 51379-9, 69951-7, 90476-6, 3016-3 #### [facility] CLIA [id number] [address] [address] [place] Cholesterol.total/Choles terol in HDL [Mass ratio] 2.83 {ratio} Normal <5.10 [facility] Comment on above: Order Comment: Clem dhillon Type: BLOOD SPECIMEN [facility] System Address: [address] [place] [address] Performed By: #### 5 7021-8, 95679-2, 50202-1, 27801-7, 3016-3 #### [facility] CLIA [id number] [address] [place] [address] [place] FASTING TIME 10 hrs Normal [facility] Comment on above: Order Comment: Speci men Type: BLOOD SPECIMEN Ordering Facility: [facility] Address: [address] [place] [address] Performed By: #### 5 7021-8, 42030-6, 00378-7, 70847-8, 3016-3 #### [facility] CLIA [id number] [address] [place] [address] [place] Triglyceride [Mass/Vol] 60 mg/dL Normal <150 [facility] Comment on above: Order Comment: Speci men Type: BLOOD SPECIMEN Ordering Facility: [facility] Address: [address] [place] [address] Result Comment: <150 mg/dL, Normal 150-199 mg/dL, Borderline high 200-499 mg/dL, High >499 mg/dL, Very high Performed By: #### 5 7021-8, 19300-3, 44917-1, 27589-8, 3016-3 #### [facility] CLIA [id number] [address] [place] [address] [place] TSH SerPl-aCncon 07-30-2024 TSH Qn 1.470 m[IU]/L Normal 0.270-4.200 [facility] Comment on above: Order Comment: Speci men Type: BLOOD SPECIMEN Ordering Facility: [facility] Address: [address] [place] [address] Performed By: #### 5 7021-8, 15932-1, 20576-5, 94115-3, 3016-3 #### [facility] CLIA [id number] [address] [place] [address] [place] Basophil percentageon 2021 Bilirubin [Mass/Vol] 0.50 mg/dL 0.20-1.00 [facility] Work Phone: Comment on above: For patients on eltr ombopag therapy, use of Dimension [place] TBIL is not recommended. Chloride [Moles/Vol] 106 mmol/L 98-107 [facility] Work Phone: Cholesterol [Mass/Vol] 169 mg/dL <200 [facility] Work Phone: Comment on above: <200 mg/dL Desirable 200-240 mg/dL Borderline >240 mg/dL High Risk Glucose [Mass/Vol] 46 mg/dL 74-106 [facility] Work Phone: Comment on above: Glucose result less than 50 mg/dL suggests HYPOGLYCEMIA. Potassium [Moles/Vol] 4.6 mmol/L 3.5-5.1 [facility] Work Phone: Protein [Mass/Vol] 7.3 g/dL 6.4-8.2 [facility] Work Phone: Sodium [Moles/Vol] 138 mmol/L 136-145 [facility] Work Phone: Triglyceride [Mass/Vol] 75 mg/dL <199 [facility] Work Phone: Comment on above: The drugs N-Acetylcy steine and Metamizole may falsely depress this assay.Serum Triglycerides Reference Interval Normal <150 mg/dL Borderline high 150 - 199 mg/dL High 200 - 499 mg/dL Very High > or = 500 mg/dL Laboratory - Chemistry and C hemistry - challengeon 09-06-2022 ALP [Catalytic activity/Vol] 27 U/L 45-117 [facility] Work Phone: ALT [Catalytic activity/Vol] 23 U/L 13-56 [facility] Work Phone: CO2 [Moles/Vol] 24.0 mmol/L 21.0-32.0 [facility] Work Phone: Globulin (S) [Mass/Vol] 3.9 g/dL 2.2-4.2 [facility] Work Phone: Urea nitrogen/Creatinine [Mass ratio] 26.9 mg/mg 10- [facility] Work Phone: No Panel Informationon 09-06 Estimated GFR (MDRD) Amer 104 mL/min >60 [facility] Work Phone: Comment on above: GFR Calc Estimated GFR (MDRD) Non-Af Amer 86 mL/min >60 [facility] Work Phone: Comment on above: Non- GFR Calc Thyroid Stimulating Hormone (TSH) 1.86 uIU/mL 0.358-3.74 [facility] Work Phone: Serum or plasma albumin paula urement (mass/volume)on 09-06-2022 Albumin [Mass/Vol] 3.4 g/dL 3.2-5.0 [facility] Work Phone: Serum or plasma albumin/glob ulin mass ratioon 09-06-2022 Albumin/Globulin [Mass ratio] 0.9 {ratio} 0.9-2.4 [facility] Work Phone: Serum or plasma calcium paula urement (mass/volume)on 09-06-2022 Calcium [Mass/Vol] 9.0 mg/dL 8.5-10.1 [facility] Work Phone: Serum or plasma cholesterol in HDL measurement (mass/volume)on 09-06-2022 Cholesterol in HDL [Mass/Vol] 71 mg/dL >40 [facility] Work Phone: Comment on above: The drugs N-Acetylcy steine and Metamizole may falsely depress this assay. Reference Range HDL <40 mg/dL Low HDL Cholesterol HDL >or= 60 mg/dL High HDL Cholesterol Serum or plasma cholesterol in VLDL measurement (mass/volume)on 09-06-2022 Cholesterol in VLDL [Mass/Vol] 15 mg/dL 5-40 [facility] Work Phone: Serum or plasma creatinine m easurement (mass/volume)on 09-06-2022 Creatinine [Mass/Vol] 0.74 mg/dL 0.55-1.02 [facility] Work Phone: Comment on above: The validity of the calculated GFR & GFRAA in patients over 70 years has not been determined. Clinical correlation is essential. Serum or plasma low density lipoprotein (LDL) cholesterol measurement (mass/volume)on 09-06-2022 Cholesterol in LDL [Mass/Vol] 83 mg/dL 0-130 [facility] Work Phone: Serum or plasma urea nitroge n measurement (mass/volume)on 09-06-2022 Urea nitrogen [Mass/Vol] 20 mg/dL 7-18 [facility] Work Phone: Thin prep Papanicolaou smear with manual screeningon 09-06-2022 Thin prep Papanicolaou smear with manual screening 17 U/L 15-37 [facility] Work Phone: Thin prep Papanicolaou smear with manual screening 8 5-15 [facility] Work Phone: Whole blood hemoglobin A1c/t otal hemoglobin ratio (mass fraction)on 09-06-2022 HbA1c (Bld) [Mass fraction] 6.0 % 3.8-5.6 [facility] Work Phone: Comment on above: Normal < 5.7 % Predi abetic 5.7 - 6.4 % Diabetic >or= 6.5 % Please note range changes. No Panel Informationon 12-13 POC SARS CoV-2 Antigen Positive [facility] Work Phone: .Auto Diffon 07-28-2021 Basophil, Absolute 0.00 10 3/mcL Normal 0.00-0.27 [facility] ([place]) Comment on above: Performed By: #### C BC, ADIFF, ANEU, TSH, CMP, GFR, BILAD, LIPID, A1C #### [facility] [address] [place] [address] Basophils/100 WBC (Bld) 0.5 % Normal 0.0-2.5 [facility] ([place]) Comment on above: Performed By: #### C BC, ADIFF, ANEU, TSH, CMP, GFR, BILAD, LIPID, A1C #### [address] [address] Eosinophil, Absolute 0.10 10 3/mcL Normal 0.00-0.65 [facility] ([place]) Comment on above: Performed By: #### C BC, ADIFF, ANEU, TSH, CMP, GFR, BILAD, LIPID, A1C #### [address] [address] Eosinophils/100 WBC (Bld) 1.9 % Normal 0.0-6.0 [facility] ([place]) Comment on above: Performed By: #### C BC, ADIFF, ANEU, TSH, CMP, GFR, BILAD, LIPID, A1C #### [address] [address] Lymphocyte, Absolute 1.90 10 3/mcL Normal 0.90-4.32 [facility] ([place]) Comment on above: Performed By: #### C BC, ADIFF, ANEU, TSH, CMP, GFR, BILAD, LIPID, A1C #### [address] [address] Lymphocytes/100 WBC (Bld) 25.0 % Normal 20.0-40.0 [facility] ([place]) Comment on above: Performed By: #### C BC, ADIFF, ANEU, TSH, CMP, GFR, BILAD, LIPID, A1C #### [address] [address] Monocyte, Absolute 0.50 10 3/mcL Normal 0.09-1.40 [facility] ([place]) Comment on above: Performed By: #### C BC, ADIFF, ANEU, TSH, CMP, GFR, BILAD, LIPID, A1C #### [address] [address] Monocytes/100 WBC (Bld) 6.2 % Normal 2.0-13.0 [facility] ([place]) Comment on above: Performed By: #### C BC, ADIFF, ANEU, TSH, CMP, GFR, BILAD, LIPID, A1C #### [address] [address] Neutrophils/100 WBC (Bld) 66.4 % Normal 50.0-75.0 [facility] ([place]) Comment on above: Performed By: #### C BC, ADIFF, ANEU, TSH, CMP, GFR, BILAD, LIPID, A1C #### [address] [address] .GFRon 07-28-2021 GFR Non- >60 Normal [facility] ([place]) Comment on above: Result Comment: GFR Population mean for , Non- Americans Ages 20-29 = 116 mL/min/1.73 sq.m. Ages 30-39 = 107 mL/min/1.73 sq.m. Ages 40-49 = 99 mL/min/1.73 sq.m. Ages 50-59 = 93 mL/min/1.73 sq.m. Ages 60-69 = 85 mL/min/1.73 sq.m. Ages 70+ = 75 mL/min/1.73 sq.m. Chronic Kidney Disease: Less than 60 mL/min/1.73 square meters End Stage Renal Disease: Less than 15 mL/min/1.73 square meters Performed By: #### C BC, ADIFF, ANEU, TSH, CMP, GFR, BILAD, LIPID, A1C #### [address] [address] GFR >60 Normal [facility] ([place]) Comment on above: Result Comment: GFR Population mean for , Non- Americans Ages 20-29 = 116 mL/min/1.73 sq.m. Ages 30-39 = 107 mL/min/1.73 sq.m. Ages 40-49 = 99 mL/min/1.73 sq.m. Ages 50-59 = 93 mL/min/1.73 sq.m. Ages 60-69 = 85 mL/min/1.73 sq.m. Ages 70+ = 75 mL/min/1.73 sq.m. Chronic Kidney Disease: Less than 60 mL/min/1.73 square meters End Stage Renal Disease: Less than 15 mL/min/1.73 square meters Performed By: #### C BC, ADIFF, ANEU, TSH, CMP, GFR, BILAD, LIPID, A1C #### [address] [address] .NEUABSon 07-28-2021 Neutrophil, Absolute 4.90 10 3/mcL Normal 2.25-8.10 [facility] ([place]) Comment on above: Performed By: #### C BC, ADIFF, ANEU, TSH, CMP, GFR, BILAD, LIPID, A1C #### [place] [id number] A1Con 07-28-2021 HbA1c (Bld) [Mass fraction] 5.9 % Normal 4.0-6.0 [facility] ([place]) Comment on above: Performed By: #### C BC, ADIFF, ANEU, TSH, CMP, GFR, BILAD, LIPID, A1C #### [place] [address] BILADon 07-28-2021 Bili Direct 0.2 mg/dL Normal 0.0-0.4 [facility] ([place]) Comment on above: Result Comment: Use of this assay is not recommended for patients undergoing treatment with eltrombopag due to the potential for falsely elevated results. Performed By: #### C BC, ADIFF, ANEU, TSH, CMP, GFR, BILAD, LIPID, A1C #### [address] [address] CBCon 07-28-2021 Erythrocyte distribution width (RBC) [Ratio] 16.4 % High 11.5-15.5 [facility] ([place]) Comment on above: Performed By: #### C BC, ADIFF, ANEU, TSH, CMP, GFR, BILAD, LIPID, A1C #### [place] [address] Hematocrit (Bld) [Volume fraction] 40.3 % Normal 34.0-46.0 [facility] ([place]) Comment on above: Performed By: #### C BC, ADIFF, ANEU, TSH, CMP, GFR, BILAD, LIPID, A1C #### [place] [address] Hgb 13.2 G/dL Normal 12.0-16.0 [facility] ([place]) Comment on above: Performed By: #### C BC, ADIFF, ANEU, TSH, CMP, GFR, BILAD, LIPID, A1C #### [place] [address] MCH (RBC) [Entitic mass] 26.9 pg Low 27.0-33.0 [facility] ([place]) Comment on above: Performed By: #### C BC, ADIFF, ANEU, TSH, CMP, GFR, BILAD, LIPID, A1C #### [place] [address] MCHC 32.8 G/dL Normal 32.0-36.0 [facility] ([place]) Comment on above: Performed By: #### C BC, ADIFF, ANEU, TSH, CMP, GFR, BILAD, LIPID, A1C #### [place] [address] MCV (RBC) [Entitic vol] 81.9 fL Normal 80.0-99.0 [facility] ([place]) Comment on above: Performed By: #### C BC, ADIFF, ANEU, TSH, CMP, GFR, BILAD, LIPID, A1C #### [place] [address] Platelet 306 10 3/mcL Normal 150-450 [facility] ([place]) Comment on above: Performed By: #### C BC, ADIFF, ANEU, TSH, CMP, GFR, BILAD, LIPID, A1C #### [place] [address] Platelet mean volume (Bld) [Entitic vol] 9.0 fL Normal 6.6-10.5 [facility] ([place]) Comment on above: Performed By: #### C BC, ADIFF, ANEU, TSH, CMP, GFR, BILAD, LIPID, A1C #### [place] [address] RBC 4.92 10 6/mcL Normal 4.10-5.30 [facility] ([place]) Comment on above: Performed By: #### C BC, ADIFF, ANEU, TSH, CMP, GFR, BILAD, LIPID, A1C #### [address] [address] WBC 7.40 10 3/mcL Normal 4.50-10.80 [facility] ([place]) Comment on above: Performed By: #### C BC, ADIFF, ANEU, TSH, CMP, GFR, BILAD, LIPID, A1C #### [address] [address] CMPon 07-28-2021 Albumin Level 3.7 G/dL Normal 3.2-4.8 [facility] ([place]) Comment on above: Performed By: #### C BC, ADIFF, ANEU, TSH, CMP, GFR, BILAD, LIPID, A1C #### [place] [address] Albumin/Globulin [Mass ratio] 1.2 {ratio} Normal 0.9-1.6 [facility] ([place]) Comment on above: Performed By: #### C BC, ADIFF, ANEU, TSH, CMP, GFR, BILAD, LIPID, A1C #### [place] [address] ALP [Catalytic activity/Vol] 25 U/L Low 38-126 [facility] ([place]) Comment on above: Performed By: #### C BC, ADIFF, ANEU, TSH, CMP, GFR, BILAD, LIPID, A1C #### [place] [id number] ALT [Catalytic activity/Vol] 15 U/L Normal 10-49 [facility] ([place]) Comment on above: Performed By: #### C BC, ADIFF, ANEU, TSH, CMP, GFR, BILAD, LIPID, A1C #### [address] [address] AST [Catalytic activity/Vol] 16 U/L Normal 8-34 [facility] ([place]) Comment on above: Performed By: #### C BC, ADIFF, ANEU, TSH, CMP, GFR, BILAD, LIPID, A1C #### [place] [id number] Bili Total 0.60 mg/dL Normal 0.20-1.20 [facility] ([place]) Comment on above: Result Comment: Use of this assay is not recommended for patients undergoing treatment with eltrombopag due to the potential for falsely elevated results. Performed By: #### C BC, ADIFF, ANEU, TSH, CMP, GFR, BILAD, LIPID, A1C #### [address] [address] BUN/Creatinine Ratio 33.9 ratio High 10.0-22.0 [facility] ([place]) Comment on above: Performed By: #### C BC, ADIFF, ANEU, TSH, CMP, GFR, BILAD, LIPID, A1C #### [address] [address] Calcium [Mass/Vol] 9.1 mg/dL Normal 8.7-10.4 [facility] ([place]) Comment on above: Result Comment: No te - New Reference Range in effect 20 Performed By: #### C BC, ADIFF, ANEU, TSH, CMP, GFR, BILAD, LIPID, A1C #### [address] [address] Chloride [Moles/Vol] 108 mmol/L Normal 98-110 [facility] ([place]) Comment on above: Performed By: #### C BC, ADIFF, ANEU, TSH, CMP, GFR, BILAD, LIPID, A1C #### [address] [address] CO2 [Moles/Vol] 25 mmol/L Normal 22-32 [facility] ([place]) Comment on above: Performed By: #### C BC, ADIFF, ANEU, TSH, CMP, GFR, BILAD, LIPID, A1C #### [address] [address] Creatinine [Mass/Vol] 0.59 mg/dL Normal 0.50-1.20 [facility] ([place]) Comment on above: Performed By: #### C BC, ADIFF, ANEU, TSH, CMP, GFR, BILAD, LIPID, A1C #### [address] [address] Electrolyte Balance 7.0 mEq/L Normal 4.0-15.0 [facility] ([place]) Comment on above: Performed By: #### C BC, ADIFF, ANEU, TSH, CMP, GFR, BILAD, LIPID, A1C #### [address] [address] Globulin 3.0 G/dL Normal 1.5-3.8 [facility] ([place]) Comment on above: Performed By: #### C BC, ADIFF, ANEU, TSH, CMP, GFR, BILAD, LIPID, A1C #### [address] [address] Glucose [Mass/Vol] 97 mg/dL Normal 70-110 [facility] ([place]) Comment on above: Performed By: #### C BC, ADIFF, ANEU, TSH, CMP, GFR, BILAD, LIPID, A1C #### [address] [address] Potassium [Moles/Vol] 4.2 mmol/L Normal 3.5-5.0 [facility] ([place]) Comment on above: Performed By: #### C BC, ADIFF, ANEU, TSH, CMP, GFR, BILAD, LIPID, A1C #### [address] [address] Sodium [Moles/Vol] 140 mmol/L Normal 136-145 [facility] ([place]) Comment on above: Performed By: #### C BC, ADIFF, ANEU, TSH, CMP, GFR, BILAD, LIPID, A1C #### [address] [address] Total Protein 6.7 G/dL Normal 5.7-8.2 [facility] ([place]) Comment on above: Result Comment: No te - New Reference Range in effect 20 Performed By: #### C BC, ADIFF, ANEU, TSH, CMP, GFR, BILAD, LIPID, A1C #### [address] [address] Urea nitrogen [Mass/Vol] 20.0 mg/dL Normal 8.0-22.0 [facility] ([place]) Comment on above: Performed By: #### C BC, ADIFF, ANEU, TSH, CMP, GFR, BILAD, LIPID, A1C #### [address] [address] LIPIDon 07-28-2021 Cholesterol [Mass/Vol] 187 mg/dL Normal 50-199 [facility] ([place]) Comment on above: Result Comment: Chol esterol Reference Interval: Less than 200 Desirable 200-239 Borderline high risk 240 and above High risk Performed By: #### C BC, ADIFF, ANEU, TSH, CMP, GFR, BILAD, LIPID, A1C #### [address] [address] Cholesterol in HDL [Mass/Vol] 58 mg/dL Normal 40-59 [facility] ([place]) Comment on above: Performed By: #### C BC, ADIFF, ANEU, TSH, CMP, GFR, BILAD, LIPID, A1C #### [place] [address] Cholesterol in LDL [Mass/Vol] 110 mg/dL Normal 0-129 [facility] ([place]) Comment on above: Performed By: #### C BC, ADIFF, ANEU, TSH, CMP, GFR, BILAD, LIPID, A1C #### [place] [address] Triglyceride [Mass/Vol] 93 mg/dL Normal 3-149 [facility] ([place]) Comment on above: Performed By: #### C BC, ADIFF, ANEU, TSH, CMP, GFR, BILAD, LIPID, A1C #### [place] [id number] TSHon 07-28-2021 TSH 2.071 mIU/mL Normal 0.550-4.780 [facility] ([place]) Comment on above: Result Comment: No te - New Reference Range in effect 20 Performed By: #### C BC, ADIFF, ANEU, TSH, CMP, GFR, BILAD, LIPID, A1C #### [address] [address] Vital Signs Date Time Vital Sign Value Performing Clinician Facility 04-22-2025 11:18-0400 Body height 165.[address] Patrice Holland MD Work Phone: [facility] 04-22-2025 11:09-0400 Body mass index (BMI) [Ratio] 53.4 kg/m2 Dr. Patrice Holland MD Work Phone: [facility] 04-22-2025 11:09-0400 Body weight 145.[address] Patrice Holland MD Work Phone: [facility] 04-22-2025 11:09-0400 Diastolic blood pressure 72 mm[Hg] Dr. Patrice Holland MD Work Phone: [facility] 04-22-2025 11:09-0400 Systolic blood pressure 122 mm[Hg] Dr. Patrice Holland MD Work Phone: [facility] 08-02-2024 12:35-0400 Body height 165.1 cm Geovany Bishop Jr, MD [facility] [place] 08-02-2024 12:35-0400 Body mass index (BMI) [Ratio] 51.25 kg/m2 Geovany Bishop Jr, MD [facility] 08-02-2024 12:35-0400 Body temperature 97.4 [degF] Geovany Bishop Jr, MD [facility] 08-02-2024 12:35-0400 Body weight 139.71 kg Geovany Bishop Jr, MD [facility] 08-02-2024 12:35-0400 Diastolic blood pressure 98 mm[Hg] Geovany Bishop Jr, MD [facility] 08-02-2024 12:35-0400 Heart rate 89 /min Geovany Bishop Jr, MD [facility] 08-02-2024 12:35-0400 SaO2% (BldA) [Mass fraction] 97 % Geovany Bishop Jr, MD [facility] 08-02-2024 12:35-0400 Systolic blood pressure 122 mm[Hg] Geovany Bishop Jr, MD [facility] 07-19-2024 09:24-0400 Body height 165.1 cm Geovany Bishop Jr, MD [facility] 07-19-2024 09:24-0400 Body mass index (BMI) [Ratio] 50.58 kg/m2 Geovany Bishop Jr, MD [facility] 07-19-2024 09:240400 Body weight 137.89 kg Geovany Bishop Jr, MD [facility] 12-16-2021 13:34-0500 Body temperature 98.3 [degF] Dr. Patrice Holland Work Phone: [facility] Work Phone: 12-16-2021 13:34-0500 Diastolic blood pressure 95 mm[Hg] Dr. Patrice Holland Work Phone: [facility] Work Phone: 12-16-2021 13:34-0500 Heart rate 84 /min Dr. Patrice Holland Work Phone: [facility] Work Phone: 12-16-2021 13:34-0500 Respiratory rate 16 /min Dr. Patrice Holland Work Phone: [facility] Work Phone: 12-16-2021 13:34-0500 SaO2% (BldA) [Mass fraction] 96 % Dr. Patrice Holland Work Phone: [facility] Work Phone: 12-16-2021 13:34-0500 Systolic blood pressure 153 mm[Hg] Dr. Patrice Holland Work Phone: [facility] Work Phone: 12-16-2021 12:01-0500 Body height 165.[address] Patrice Holland Work Phone: [facility] Work Phone: 12-16-2021 12:01-0500 Body mass index (BMI) [Ratio] 61.5 kg/m2 Dr. Patrice Holland Work Phone: [facility] Work Phone: 12-16-2021 12:01-0500 Body weight 167.[address] Patrice Holland Work Phone: [facility] Work Phone: 12-13-2021 16:40-0500 Body mass index (BMI) [Ratio] 61.7 kg/m2 Dr. Patrice Holland Work Phone: [facility] Work Phone: 12-13-2021 16:40-0500 Body temperature 97.3 [degF] Dr. Patrice Holland Work Phone: [facility] Work Phone: 12-13-2021 16:40-0500 Body weight 168.[address] Patrice Holland Work Phone: [facility] Work Phone: 12-13-2021 16:40-0500 Diastolic blood pressure 76 mm[Hg] Dr. Patrice Holland Work Phone: [facility] Work Phone: 12-13-2021 16:40-0500 Heart rate 100 /min Dr. Patrice Holland Work Phone: [facility] Work Phone: 12-13-2021 16:40-0500 Respiratory rate 18 /min Dr. Patrice Holland Work Phone: [facility] Work Phone: 12-13-2021 16:40-0500 SaO2% (BldA) [Mass fraction] 95 % Dr. Patrice Holland Work Phone: [facility] Work Phone: 12-13-2021 16:40-0500 Systolic blood pressure 138 mm[Hg] Dr. Patrice Holland Work Phone: [facility] Work Phone: Encounters Encounter Date Encounter Type Care Provider Facility Start: 08-13-2025 End: 08-13-2025 Encounter identifier Subhash M Albino Work Phone: [facility] Start: 08-13-2025 End: 08-13-2025 Postop follow up visit related to original px Geovany Edna Jr [facility] Start: 08-13-2025 ambulatory Subhash GRIM[facility] Start: 08-05-2025 End: 08-05-[address] Patrice Holland MD Work Phone: -Laboratory Specimen Start: 08-05-2025 End: 08-05-[address] Riley Yao MD -Laboratory Specimen Work Phone: Start: 08-05-2025 End: 08-05-2025 ambulatory Riley Yao Facility:[facility] Start: 2025 ambulatory Geovany V Lomba rdi Jr [facility] Start: 07-03-2025 ambulatory Geovany V Lomba rdi Jr [facility] Start: 07-01-2025 ambulatory Geovany V Lomba rdi Jr [facility] Start: 06-27-2025 ambulatory Geovany V Lomba rdi Jr [facility] Start: 06-26-2025 End: 06-26-2025 Encounter identifier Marlon P Asuma Work Phone: [facility] Start: 06-26-2025 ambulatory Geovany V Lomba rdi Jr [facility] Start: 06-25-2025 End: 06-25-2025 Encounter identifier Subhash Posada Work Phone: [facility] Start: 06-25-2025 ambulatory Marlon P Asuma [facility] Start: 06-12-2025 End: 06-12-2025 Encounter identifier Geovany V Edna Jr Work Phone: [facility] Start: 06-12-2025 ambulatory Geovany V Lomba rdi Jr [facility] Start: 06-06-2025 ambulatory Esdras Mariscal [facility] Start: 06-05-2025 End: 06-05-2025 Encounter for other preprocedural examination Landy Bowman Work Phone: [facility] Start: 06-05-2025 End: 06-05-2025 Encounter for preprocedural cardiovascular examination Landy Bowman Work Phone: [facility] Start: 06-05-2025 End: 06-05-2025 Encounter identifier Geovany Bishop Jr Work Phone: [facility] Start: 06-05-2025 End: 06-05-2025 Office outpatient visit 25 minutes Landy Bowman Work Phone: [facility] Start: 06-05-2025 ambulatory Geovany V Lomba rdi Jr [facility] Start: 06-05-2025 ambulatory Geovany V Lomba rdi Jr [facility] Start: 05-21-2025 ambulatory Geovany V Lomba rdi Jr [facility] Start: 05-19-2025 End: 05-19-[address] Patrice Holland MD Work Phone: -[facility]patient [facility] Start: 05-19-2025 End: 05-19-2025 Patient encounter procedure Jocylukas Lópezs [employer] REPAIRER-C -Outpatient Breast [facility] Work Phone: Start: 05-19-2025 End: 05-19-2025 ambulatory Jocy Roxane SILK SCREEN REPAIRER Facility:[facility] Start: 04-22-2025 End: 04-22-2025 Patient encounter procedure Jocy Roxane SILK SCREEN REPAIRER-C -[facility] Work Phone: Start: 04-22-2025 End: 04-22-2025 Patient encounter status Jocy Caspar SILK SCREEN REPAIRER-C [facility] Start: 04-22-2025 End: 04-22-[address] Patrice Holland MD Work Phone: [facility] Work Phone: Start: 03-24-2025 End: 03-24-[address] Patrice Holland MD -Laboratory [facility] Start: 03-24-2025 End: 03-24-2025 ambulatory Partice Holland Facility:[facility] Start: 11-06-2024 End: 11-06-2024 Encounter identifier Geovany Bishop Jr Work Phone: [facility] Start: 11-06-2024 ambulatory Geovany V Susanmba dalei [facility] Start: 10-14-2024 End: 10-14-2024 Encounter identifier Geovany Jose Maunel Bishop Jr Work Phone: [facility] Start: 10-14-2024 ambulatory Geovany V [facility] rdi [facility] Start: 10-10-2024 End: 10-10-2024 Encounter identifier Geovany Jose Manuel Bihsop Jr Work Phone: [facility] Start: 10-10-2024 ambulatory Geovany V Susanmba dalei Jr [facility] Start: 10-01-2024 Encounter for other preprocedural examination Geovany Bishop Jr, MD [facility] Start: 10-01-2024 Encounter for preprocedural cardiovascular examination Geovany Bishop Jr, MD [facility] Start: 10-01-2024 End: 10-01-2024 Postop follow up visit related to original px Geovany Bishop Jr, MD [facility] Start: 10-01-2024 End: 10-01-2024 Encounter identifier Subhash Posada Work Phone: [facility] Start: 10-01-2024 ambulatory Subhash Posada [facility] Start: 09-27-2024 End: 09-27-2024 Encounter identifier Geovany Bishop Jr Work Phone: [facility] Start: 09-27-2024 ambulatory Geovany V [facility] Start: 09-10-2024 End: 09-10-2024 Encounter identifier Geovany Jose Manuel Bishop Jr Work Phone: [facility] Start: 09-09-2024 End: 09-09-2024 Encounter identifier Subhash Fernanda Posada Work Phone: [facility] Start: 09-05-2024 Encounter for other preprocedural examination Geovany Bishop Jr, MD [facility] Start: 09-05-2024 Encounter for preprocedural cardiovascular examination Geovany Bishop Jr, MD [facility] Start: 09-05-2024 End: 09-05-2024 Postop follow up visit related to original px [facility] Jr, [facility] Start: 09-05-2024 End: 09-05-2024 Encounter identifier Geovany Jose Manuel Bishop Jr Work Phone: [facility] Start: 09-02-2024 End: 09-02-2024 Encounter identifier Geovany Jose Manuel Edna Garcia Work Phone: [facility] Start: 08-23-2024 End: 08-23-2024 Encounter identifier Geovany Jose Manuel Edna Garcia Work Phone: [facility] Start: 08-22-2024 End: 08-22-2024 Encounter identifier Subhash Posada Work Phone: [facility] Start: 08-21-2024 End: 08-21-2024 Encounter identifier Geovany Jose Manuel Edna Garcia Work Phone: [facility] Start: 08-21-2024 End: 08-21-2024 Encounter identifier Geovany V Edna Jr Work Phone: [facility] Start: 08-20-2024 End: 08-20-2024 Encounter identifier Subhash Posada Work Phone: [facility] Start: 08-16-2024 End: 08-16-2024 Encounter identifier Geovany Jose Manuel DavisEdnaseamus Garcia Work Phone: [facility] Start: 08-15-2024 End: 08-15-2024 Encounter identifier Geovany V Edna Garcia Work Phone: [facility] Start: 08-12-2024 End: 08-12-2024 Encounter identifier Kenrick Arriola Work Phone: [facility] Start: 08-05-2024 End: 08-05-2024 Encounter identifier Geovany Bishop Jr Work Phone: [facility] Start: 08-02-2024 End: 08-02-2024 Encounter for other preprocedural examination Kenrick Arriola Work Phone: [facility] Start: 08-02-2024 End: 08-02-2024 Encounter for preprocedural cardiovascular examination Kenrick Melvin Flako Work Phone: [facility] Start: 08-02-2024 End: 08-02-2024 Encounter identifier Geovany Bishop Jr Work Phone: [facility] Start: 08-02-2024 End: 08-02-2024 Office consultation new/estab patient 60 min Kenrick Melvin Flako Work Phone: [facility] Start: 08-02-2024 End: 08-02-2024 Office outpatient new 45 minutes Kenrikc E Flako Work Phone: [facility] Start: 07-31-2024 End: 07-31-2024 Encounter identifier Provider [facility] Start: 07-24-2024 End: 07-24-2024 Encounter identifier Geovany Bishop Jr Work Phone: [facility] Start: 07-22-2024 Encounter for other preprocedural examination [facility] Bishop Jr, MD [facility] Start: 07-22-2024 Encounter for preprocedural cardiovascular examination Geovany Bishop Jr, MD [facility] Start: 07-19-2024 End: 07-19-2024 Encounter identifier Geovany Bishop Jr Work Phone: [facility] Start: 07-19-2024 End: 07-19-2024 Office outpatient new 60 minutes Subhash Posada Work Phone: [facility] Start: 01-03-2023 End: 01-03-2023 ambulatory [facility] Work Phone: Start: 01-03-2023 End: 01-03-2023 Patient encounter procedure [facility] Start: 08-31-2022 End: 08-31-2022 ambulatory [facility] Work Phone: Start: 08-31-2022 End: 08-31-2022 Patient encounter procedure [facility] Start: 03-18-2022 End: 03-18-[address] Patrice Holland Work Phone: [facility]-Outpatient Breast Imaging Start: 12-16-2021 End: 12-16-[address] Patrice Holland Work Phone: [facility]-Medical Surgical 3 Outp Start: 12-13-2021 End: 12-13-[address] Patrice Holland Work Phone: [facility] Procedures Date Procedure Procedure Detail Performing Clinician Start: 08-13-2025 End: 08-13-2025 Radiologic examination knee 3 views Geovany Bishop Jr Start: 08-05-2025 Urnls dip stick/tabl et reagent auto microscopy Dr. Patrice Holland MD Work Phone: Start: 08-05-[address] Patrice Holland MD Work Phone: Start: 07-25-[address] Patrice Holland MD Work Phone: Start: 06-26-2025 End: 06-26-2025 Arthrp kne condyle&platu medial&lat compartments Subhash Posada PA-C Start: 06-26-2025 End: 06-26-2025 Intermittent Compression Device - SELF PAY Subhash Posada PA-C Start: 06-26-2025 PA Arthroplasty, Tot al Knee Geovany Bishop Jr Start: 06-26-2025 End: 06-26-2025 PA Arthroplasty, Total Knee Subhash Posada PA-C Start: 06-12-2025 End: 06-12-2025 Surgery Prepay Subhash Posada PA-C Start: 06-05-2025 End: 06-05-2025 Collection venous blood venipuncture Subhash Posada PA-C Start: 06-05-2025 End: 06-05-2025 Ecg routine ecg w/least 12 lds w/i&r Subhash Posada PA-C Start: 06-05-2025 End: 06-05-2025 EMN Subhash Posada PA-C Start: 06-05-2025 End: 06-05-2025 No Charge Subhash Posada PA-C Start: 06-05-2025 End: 06-05-2025 Noninvasive ear/pulse oximetry single deter Subhash Posada PA-C Start: 05-19-2025 Screening mammography Warren Holland MD Work Phone: Start: 10-01-2024 End: 10-01-2024 Radiologic examination knee 3 views Geovany Bishop Jr, MD Start: 08-20-2024 End: 08-20-2024 Arthrp kne condyle&platu medial&lat compartments Geovany Bishop Jr, MD Start: 08-20-2024 End: 08-20-2024 PA Arthroplasty, Total Knee Geovany Bishop Jr, MD Start: 08-15-2024 End: 08-15-2024 Surgery Prepay Geovany Kelley Start: 08-02-2024 End: 08-02-2024 Collection venous blood venipuncture Geovany Bishop Jr, MD Start: 08-02-2024 End: 08-02-2024 Ecg routine ecg w/least 12 lds w/i&r Geovany Bishop Jr, MD Start: 08-02-2024 End: 08-02-2024 Intermittent Compression Device - SELF PAY Geovany Bishop Jr, MD Start: 08-02-2024 End: 08-02-2024 No Charge Geovany Kelley Start: 08-02-2024 End: 08-02-2024 Noninvasive ear/pulse oximetry single annie Bishop Jr, MD Start: 08-02-2024 End: 08-02-2024 Physical therapy evaluation mod complex 30 mins Geovany Bishop Jr, MD Start: 08-02-2024 End: 08-02-2024 Therapeut actvity direct pt contact each 15 min Geovany Bishop Jr, MD Start: 07-19-2024 End: 07-19-2024 Radiologic exam knee complete 4/more views Geovany Bishop Jr, MD Start: 01-03-2023 MRI of lower extremity Start: 03-18-2022 Screening mammography Warren Holland Work Phone: Plan of Treatment Date Care Activity Detail Author Start: 06-05-2025 [facility] Start: 06-05-2025 Patient referral [facility]- BMI 55 (related to Preoperative clearance) [facility] Start: 10-01-2024 Citlalli Appiah [facility] Work Phone: Start: 09-05-2024 Citlalli Appiah [facility] Work Phone: Start: 08-20-2024 [facility] Work Phone: Start: 08-02-2024 Multiple Labs On Order ([id number]), Ordered on: [facility] MG Breast - bilatera l Screening [facility] Patient referral [facility] Work Phone: Payers Date Payer Category Payer Self-pay [id number] 2024 Unknown [id number] 2012 Unknown [id number] 1965 Unknown [id number] 2.16.84 0.1.003803.3.579.2.1313 1965 Unknown [id number] 2.16.84 0.1.105264.3.579.2.1313 1965 Unknown [id number] .16.84 0.1.587938.3.579.2.1313 1965 Unknown [id number] .16.84 0.1.165823.3.579.2.1313 1965 Unknown [id number] 2.16.84 0.1.196931.3.579.2.1313 1965 Unknown [id number] 2.16.84 0.1.489254.3.579.2.1313 1965 Unknown [id number] 2.16.84 0.1.750051.3.579.2.1313 1965 Unknown [id number] 2.16.84 0.1.906661.3.579.2.1313 1965 Unknown [id number] 2.16.84 0.1.042978.3.579.2.1313 1965 Unknown [id number] 2.16.84 0.1.170786.3.579.2.1313 1965 Unknown [id number] 2.16.84 0.1.587112.3.579.2.1313 1965 Unknown [id number] 2.16.84 0.1.762640.3.579.2.1313 1965 Unknown [id number] 2.16.84 0.1.805757.3.579.2.1313 1965 Unknown [id number] 2.16.84 0.1.453632.3.579.2.1313 1965 Unknown [id number] 2.16.84 0.1.301201.3.579.2.1313 1965 Unknown [id number] 2.16.84 0.1.198868.3.579.2.1313 1965 Unknown [id number] 2.16.84 0.1.222111.3.579.2.1313 1965 Unknown [id number] 2.16.84 0.1.328702.3.579.2.1313 1965 Unknown [id number] 2.16.84 0.1.714594.3.579.2.1313 1965 Unknown [id number] 2.16.84 0.1.936863.3.579.2.1313 1965 Unknown [id number] 2.16.84 0.1.615740.3.579.2.1314 Unknown [id number] 2.16.8 40.1.779096.3.579.2.462 Unknown [id number] 2.16.8 40.1.174751.3.579.2.462 Unknown [id number] 2.16.8 40.1.402025.3.579.2.462 Unknown [id number] 2.16.8 40.1.062255.3.579.2.462 Social History Date Type Detail Facility Tobacco smoking status NHIS Unknown if ever smoked [facility] Work Phone: Start: 1965 Sex Assigned At Female [facility] Start: 08-12-2024 End: 08-13-2025 Tobacco smoking status NHIS Unknown if ever smoked [facility] Start: 07-19-2024 Alcohol intake Alcohol Use Details [facility] Start: 07-31-2020 Sexual Orientation Choose not to disclose [facility] Start: 06-30-2020 Sexual Orientation Straight or heterosexual [facility] Start: 07-19-2024 Tobacco smoking status NHIS Former smoker [facility] Start: 07-19-2024 Tobacco use and exposure Non-Smoking Tobacco Use Details [facility] Start: 08-02-2024 Tobacco use and exposure Smoking Tobacco Use Details [facility] Start: 04-15-2024 Tobacco smoking status NHIS Never smoked tobacco (finding) [facility] Sex Female [facility] NEGATED: Highlighted rowStart: 08-02-2024 Alcohol intake Alcohol Use Details [facility] Mental Status Date Assessment Result Facility 12-16-2021 Cognitive function Voice/Name;To uch/Shaking;L ight Pain;Deep Pain [facility] Work Phone: Clinical Notes 07-19-2024 to 08-15-2025 Note Date & Type Note Facility 08-15-2025 Evaluation note Type assessment [facility] Work Phone: [phone] History of Present illness Narrative* Encounter Date Complaint History Of Prese nt Illness AVL Post op (copy) 60 year old keo benjamin presents to the office for their routine 6 week post-op appointment. She is post op from a LTKA by Dr. Bishop on 06/26/2025. She is complaining of mild pain and rate the pain a 5/10. She is currently taking Tylenol for pain control. She describes the pain as tightness/achy. She is currently in physical therapy, which she states is going well. She is also completing a home exercise program for days they do not have formal physical therapy. She is using a cane device for ambulation. Preoperative medical risk stratification The patient, Citlalli Appiah, is a 59-year-old female who presents at the request of Dr.Adolph Edna Garcia MD in anticipation of LTKA. Pt has tried conservative tx w/o adequate symptom relief and elects to have the above surgery. The surgeon has sent this patient to our office for a preoperative evaluation. This has included a discussion with the patient regarding their medical conditions and how they relate to the surgery. The patient has also been provided verbal and written instructions regarding perioperative management of their medications. Additional testing felt to be a necessary part of the PAT process including labs, imaging, or specialist consultation will be detailed below.A consult has been requested by the surgeon for evaluation and optimization of the patient's chronic medical conditions prior to surgery, including but not limited to: HTN ; managed with prescribed antihypertensive medication(s), -Morbid obesity w/ BMI >40, -Prediabetes, managed with diet & lifestyle modifications & on Wegovy Preoperative medical risk stratification The patient, Citlalli Appiah, is a 59-year-old female who presents at the request of Dr.Adolph Edna Garcia MD in anticipation of RTKR. This patient's chronic medical conditions include hypertension, controlled and managed medically on antihypertensive treatment. The patient also has prediabetes and is on diet lifestyle modification only. Additionally, the patient is morbidly obese with a BMI above 50.This patient denies any cardiovascular issues. The patient has a functional capacity of at least 4 METs, without complaints of any chest pain or dyspnea on exertion.Internal Medicine has been consulted by the physician above. Please review this document for the status of active medical conditions and the assessment and plan for preoperative medical risk stratification. Knee [facility] Work Phone: 1(230) 611-542905-27-2025 Evaluation note* Diagnosis Onset Date Resolution Status Admit Date Encounter for routine gynecological examination noneactive April 222024 11:05am [facility] Work Phone: 1(937) 786-192305-27-2025 [facility] [address] [place] [address], [address] [place] [address] OFFICE VISIT Date of Service: 04/22/25 MR#: [id number] Acct: [id number] Name: CITLALLI APPIAH Rep #: [id number] : 1965 Provider: STEVE Betts Age/Sex: 59/F [place] [facility]: Signed Intake Vital Signs 04/15/24 11:11 04/22/25 11:09 04/22/25 11:18 Height 5 ft 5 in 5 ft 5 in 5 ft 5 in Weight: 321 lb 2 oz BMI 53.4 BP 122/72 H 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) Chief Complaint: Annual Social Sciences Chair Required: No Is patient in pain?: No Allergies No Known Allergies Allergy (Unverified 04/22/25 11:08) Medications ?Medication ?Instructions ?Recorded ?Confirmed ?Type acetaminophen 325 mg capsule 325 mg PO ONCE PRN 04/22/25 History (Tylenol) amlodipine 5 mg tablet 5 mg PO DAILY 04/15/2404/22 History semaglutide (weight loss) 1 mg/0.5 1 mg subcut QWEEK 0 04/15/24 04/22/25 History mL subcutaneous pen injector medroxyprogesterone 10 mg tablet 10 mg PO .COMPLEX #30 tabs 04/22/25 04/22/25 Rx metronidazole 1 % topical gel 1 applic topical DAILY # 60 grams 04/22/25 04/22/25 Rx Is last menstrual period known: No Post menopausal: Yes Patient : No : No PFSH Medical History Endometriosis Hypertension Surgical History Status post right knee replacement History of ankle surgery S/P cholecystectomy S/P left oophorectomy Social History current occupational status: employed current occupation: [employer] Smoking Status: Never smoker alcohol intake: never substance use type: does not use seatbelt use: always additional social history: Single History 0 Elective abortions Hx Para Spontaneous abortions Hx # Term Pregnancies Ectopic pregnancies Hx # Pregnancies Multiple births # of living children HPI Encounter for routine gynecological examination Details: CITLALLI APPIAH is a 59 year old who presents for annual exam. Denies concerns. Having other knee replaced next month. No menses with provera each month. Has taken since 2019 due to heavy and prolonged menses. Last PAP: 2022 History of abnormal PAP: no Last mammogram: 03/2024 History of abnormal mammogram: neg bx Colon cancer screening: cologuard Q3 yr Other preventative health care screenings: Ngozi Holland Female Reproductive History Questions: metorrhagia: No and sexually active: No ROS Const Constitutional: Denies fatigue, weight gain or weight loss Cardio Card: Denies chest pain Resp Resp: Denies cough or dyspnea on exertion GI GI: Denies abdominal pain, bloating, change in stool character, constipation or vomiting : Reports as per HPI; Denies difficulty voiding, pelvic pain, urinary frequency, urinary incontinence,urinary urgency, vaginal discharge or vaginal pruritus Exam Const General: cooperative, healthy appearing, no acute distress and well developed Nutritional Appearance: obese Orientation: alert, oriented to person and oriented to place HENPR Head: normal to inspection Neck Neck: normal visual inspection Thyroid: thyroid normal Lymphatic: no lymphadenopathy noted Chest Breast inspection: normal inspection of the breasts and normal inspection of theaxillae Breast palpation: normal palpation of the breasts, normal palpation of the axillae and no axillary lymphadenopathy Resp Effort & Inspection: normal respiratory effort GI Palpation: soft, no masses and nontender Rectal Exam: deferred External Female Exam: normal external appearance and normal appearance of the urethra Urethra: normal appearance of the urethra and normal palpation Speculum Exam - Vagina: normal appearance of the vagina and normal vaginal discharge Speculum Exam - Cervix: normal appearance of the cervix Bimanual Exam- Vagina & Uterus: normal bimanual exam, uterine size normal, uterine shape normaland non-tender Bimanual Exam- Adnexa, other: normal adnexae, no masses, normal and non-tender Pelvic Support: normal Neuro General: patient alert and patient oriented x3 Psych Affect: normal affect Coding Level of Care Code Off vis,est,prev 40-64yrs Diagnoses Encounter for gynecological examination without abnormal finding Z01.419 Gynecological examination findings: abnormal findings ABSENT Assessment and Plan Assessment and Plan (1) Encounter for routine gynecological examination: Qualifiers: Gynecological examination findings: abnormal findings ABSENT Qualified Code(s): Z01.419 - Encounterfor gynecological examination (general) (routine) without abnormal findings Orders: Orders SCRN MAMM (CAD)W/KAYLEY BILAT 11/28/24 Z12.31 - Encounter for screening mammogramfor malignant neoplasm of breast Medications: New metronidazole 1% 1 applic topical DAILY 60 grams 0RF Changed From medroxyprogesterone 10 mg orally first 10 days each month; 30 tabs 3RF To medroxyprogesterone 10 mg orally first 10 days every 3 months 30 tabs 3RF Plan Completed breast and pelvic exam Reviewed diet and exercise Pap 2022 Refill provera and she will just take every 3 mo and using as prevention for thickened endometrial lining. Mammogram scheduled tomorrow breast self exam encouraged monthly Refill metro gel she uses prn Colonoscopy cologuard per PCP Q3yr Bone density age 65 RTO 1 year, prn with problems Jocy Betts CAR SALES ASSOCIATE 04/22/25 1135 s SILK SCREEN REPAIRER SILK SCREEN REPAIRER-C> Date _ Jocy Betts SILK SCREEN REPAIRER SILK SCREEN REPAIRER-C Cosigner Signature: Date (if applicable) CC: ~ [facility]10-10-2024 Evaluation note* Type Assessment Date assessment Status post right knee replaceme nt [facility] Work Phone: 1(543) 581-194209-06-2024 Evaluation note* Type Assessment Date assessment Unilateral primary osteoarthriti s, right knee [facility] Phone: 1(497) 915-603209-06-2024 History of Present illness Narrative* Encounter Date Complaint History Of Prese nt Illness Preoperative medical risk stratification The patient, Citlalli Appiah, is a 59-year-old female who presents at the request of Dr.Adolph Edna Garcia MD in anticipation of RTKR. This patient's chronic medical conditions include hypertension, controlled and managed medically on antihypertensive treatment. The patient also has prediabetes and is on diet lifestyle modification only. Additionally, the patient is morbidly obese with a BMI above 50.This patient denies any cardiovascular issues. The patient has a functional capacity of at least 4 METs, without complaints of any chest pain or dyspnea on exertion.Internal Medicine has been consulted by the physician above. Please review this document for the status of active medical conditions and the assessment and plan for preoperative medical risk stratification. Knee [facility] Phone: 1(324) 423-806008-23-2024 Evaluation note* Type Assessment Date assessment Status post right knee replaceme nt assessment Status post right knee replaceme nt [facility] Work Phone: Chief complaint+Reason for visit Narrative* Chief Complaint URI COVID POS SCREENING Reason for Visit COVID-19 [facility] Work Phone: Consult note* Clinical Note Date No Information [facility] Phone: Discharge summary* Clinical Note Date No Information [facility] Phone: Evaluation note* Diagnosis Onset Date Resolution Status COVID-19 acute [facility] Work Phone: Evaluation noteNo assessment information available [facility] Work Phone: Evaluation note* Type Assessment Date No Information [facility] Phone: Evaluation note* Diagnosis Onset Date Resolution Status Admit Date Encounter for routine gynecological examination noneactive April 222024 11:05am [facility] Work Phone: History and physical note* Clinical Note Date No Information [facility] Work Phone: Instructions* Date Instruction Additional Infor mation No Information [facility] Work Phone: Progress note* Clinical Note Date No Information [facility] Work Phone: Progress note Author Jocy Betts [facility] Note Date/Time April 22, 2025 11:34 am [facility] [address], [address] [place] [address] OFFICE VISIT Date of Service: 04/22/25 MR#: [id number] Acct: [id number] Name: CITLALLI APPIAH Rep #: [id number] : 1965 Provider: STEVE Betts Age/Sex: 59/F [place] [facility] [place]: [place]igned Intake Vital Signs 04/15/24 11:11 04/22/25 11:09 04/22/25 11:18 Height 5 ft 5 in 5 ft 5 in 5 ft 5 in Weight: 321 lb 2 oz BMI 53.4 BP 122/72 H 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) Chief Complaint: Annual Social Sciences Chair Required: No Is patient in pain?: No Allergies No Known Allergies Allergy (Unverified 04/22/25 11:08) Medications ?Medication ?Instructions ?Recorded ?Confirmed ?Type acetaminophen 325 mg capsule 325 mg PO ONCE PRN 04/22/25 History (Tylenol) amlodipine 5 mg tablet 5 mg PO DAILY 04/15/2404/22 History semaglutide (weight loss) 1 mg/0.5 1 mg subcut QWEEK 0 04/15/24 04/22/25 History mL subcutaneous pen injector medroxyprogesterone 10 mg tablet 10 mg PO .COMPLEX #30 tabs 04/22/25 04/22/25 Rx metronidazole 1 % topical gel 1 applic topical DAILY # 60 grams 04/22/25 04/22/25 Rx Is last menstrual period known: No Post menopausal: Yes Patient : No : No PFSH Medical History Endometriosis Hypertension Surgical History Status post right knee replacement History of ankle surgery S/P cholecystectomy S/P left oophorectomy Social History current occupational status: employed current occupation: [employer] Smoking Status: Never smoker alcohol intake: never substance use type: does not use seatbelt use: always additional social history: Single History 0 Elective abortions Hx Para Spontaneous abortions Hx # Term Pregnancies Ectopic pregnancies Hx # Pregnancies Multiple births # of living children HPI Encounter for routine gynecological examination Details: CITLALLI APPIAH is a 59 year old who presents for annual exam. Denies concerns. Having other knee replaced next month. No menses with provera each month. Has taken since 2019 due to heavy and prolonged menses. Last PAP: 2022 History of abnormal PAP: no Last mammogram: 03/2024 History of abnormal mammogram: neg bx Colon cancer screening: cologuard Q3 yr Other preventative health care screenings: Ngozi Holland Female Reproductive History Questions: metorrhagia: No and sexually active: No ROS Const Constitutional: Denies fatigue, weight gain or weight loss Cardio Card: Denies chest pain Resp Resp: Denies cough or dyspnea on exertion GI GI: Denies abdominal pain, bloating, change in stool character, constipation or vomiting : Reports as per HPI; Denies difficulty voiding, pelvic pain, urinary frequency, urinary incontinence,urinary urgency, vaginal discharge or vaginal pruritus Exam Const General: cooperative, healthy appearing, no acute distress and well developed Nutritional Appearance: obese Orientation: alert, oriented to person and oriented to place [facility] Head: normal to inspection Neck Neck: normal visual inspection Thyroid: thyroid normal Lymphatic: no lymphadenopathy noted Chest Breast inspection: normal inspection of the breasts and normal inspection of theaxillae Breast palpation: normal palpation of the breasts, normal palpation of the axillae and no axillary lymphadenopathy Resp Effort & Inspection: normal respiratory effort GI Palpation: soft, no masses and nontender Rectal Exam: deferred External Female Exam: normal external appearance and normal appearance of the urethra Urethra: normal appearance of the urethra and normal palpation Speculum Exam - Vagina: normal appearance of the vagina and normal vaginal discharge Speculum Exam - Cervix: normal appearance of the cervix Bimanual Exam- Vagina & Uterus: normal bimanual exam, uterine size normal, uterine shape normal and non-tender Bimanual Exam- Adnexa, other: normal adnexae, no masses, normal and non-tender Pelvic Support: normal Neuro General: patient alert and patient oriented x3 Psych Affect: normal affect Coding Level of Care Code Off vis,est,prev 40-64yrs Diagnoses Encounter for gynecological examination without abnormal finding Z01.419 Gynecological examination findings: abnormal findings ABSENT Assessment and Plan Assessment and Plan (1) Encounter for routine gynecological examination: Qualifiers: Gynecological examination findings: abnormal findings ABSENT Qualified Code(s): Z01.419 - Encounter for gynecological examination (general) (routine) without abnormal findings Orders: Orders [facility] MAMM (CAD)W/KAYLEY BILAT 11/28/24 Z12.31 - Encounter for screening mammogramfor malignant neoplasm of breast Medications: New metronidazole 1% 1 applic topical DAILY 60 grams 0RF Changed From medroxyprogesterone 10 mg orally first 10 days each month; 30 tabs 3RF To medroxyprogesterone 10 mg orally first 10 days every 3 months 30 tabs 3RF Plan Completed breast and pelvic exam Reviewed diet and exercise Pap 2022 Refill provera and she will just take every 3 mo and using as prevention for thickened endometrial lining. Mammogram scheduled tomorrow breast self exam encouraged monthly Refill metro gel she uses prn Colonoscopy cologuard per PCP Q3yr Bone density age 65 RTO 1 year, prn with problems Jocy Betts [facility] 04/22/25 1135 <Electronically signed by Jocy weldon SILK SCREEN REPAIRER SILK SCREEN REPAIRER-C> Date _ Jocy Betts SILK SCREEN REPAIRER SILK SCREEN REPAIRER-C Cosigner Signature: Date (if applicable) CC: ~ [facility] Work Phone: Reason for referral (narrative)* Reason For Referral No Information [facility] Work Phone: Reason for referral (narrative)No reason for referral [facility] Work Phone: Summary Purpose Family History Family Member Type Diagnosis Age At Onset Brother Problem (finding) Family history of Heart disease Brother Problem (finding) Hypertension Sister Problem (finding) Cancer Mother Problem (finding) Hypertension Advance Directives Directive Yes / No Effective Date File Name No Information Chief Complaint and Reason for Visit Chief Complaint Admit Date Annual (CONVERTER SKIMMER) April 22, 2025 11:05 am SCREENING May 19, 2025 3:34 pm Reason for Visit Admit Date Encounter for routine gynecological exam ination April 22, 2025 11:05am Chief Complaint NEED ORDER Chief Complaint NEURITIS PAIN OF LEF T FOOT Chief Complaint Admit Date Annual (CONVERTER SKIMMER) April 22, 2025 11:05 am Additional Source Comments INFORMATION SOURCE (unrecogn ized section and content) DATE CREATED AUTHOR 07/29/2021 [facility] DATE CREATED AUTHOR AUTHOR'S ORGANIZ ATION 06/09/2025 [facility] DATE CREATED AUTHOR AUTHOR'S ORGANIZ ATION 06/09/2025 [facility] DATE CREATED AUTHOR AUTHOR'S ORGANIZ ATION 06/10/2025 [facility] DATE CREATED AUTHOR AUTHOR'S ORGANIZ ATION 06/28/2025 [facility] DATE CREATED AUTHOR AUTHOR'S ORGANIZ ATION 08/15/2025 [facility] DATE CREATED AUTHOR AUTHOR'S ORGANIZ ATION 08/19/2025 [facility] Goals (unrecognized section and content) Health Concern Goal Type Priority Status No Information Care Teams (unrecognized sec tion and content) Team Status: Active Member Role Status Dates Dr. Patrice Holland MD Family Provider Active Dr. Patrice Holland MD Primary Care Provider Active Team Status: Inactive Member Role Status Dates Dr. Patrice Holland MD Primary Care Provider Active Dr. Gavino Montes DPM Attending Provider, Kya nash Provider Active Name Effective Dates (start - stop) Status Members No Information Team Status: Active Member Role Status Dates Dr. Patrice Holland MD Primary Care Provider Active Team Status: Inactive Member Role Status Dates Dr. Patrice Holland MD Primary Care Provider Active Start: March 24, 2025 End: March 24, 2025 Dr. Patrice Holland MD Attending Provider Active St art: March 24, 2025 End: March 24, 2025 Dr. Patrice Holland MD Referring Provider Active St art: March 24, 2025 End: March 24, 2025 Team Status: Inactive Member Role Status Dates Dr. Patrice Holland MD Primary Care Provider Active Start: April 22, 2025 End: April 22, 2025 Dr. Patrice Holland MD Referring Provider Active St art: April 22, 2025 End: April 22, 2025 Jocy Betts SILK SCREEN REPAIRER, SILK SCREEN REPAIRER-C Attending Provider Active Start: April 22, 2025 End: April 22, 2025 Team Status: Active Member Role/Relationship Status Dates Dr. Patrice Holland MD Primary Care Provider Active Team Status: Inactive Member Role/Relationship Status Dates Dr. Patrice Holland MD Primary Care Provider Active Start: March 24, 2025 End: March 24, 2025 Dr. Patrice Holland MD Attending Provider Active St art: March 24, 2025 End: March 24, 2025 Dr. Patrice Holland MD Referring Provider Active St art: March 24, 2025 End: March 24, 2025 Team Status: Inactive Member Role/Relationship Status Dates Dr. Patrice Holland MD Primary Care Provider Active Start: April 22, 2025 End: April 22, 2025 Dr. Patrice Holland MD Referring Provider Active St art: April 22, 2025 End: April 22, 2025 Jocy Betts SILK SCREEN REPAIRER, SILK SCREEN REPAIRER-C Attending Provider Active Start: April 22, 2025 End: April 22, 2025 Team Status: Inactive Member Role/Relationship Status Dates Dr. Patrice Holland MD Primary Care Provider Active Start: May 19, 2025 End: May 19, 2025 Jocy Betts SILK SCREEN REPAIRER, SILK SCREEN REPAIRER-C Attending Provider Active Start: May 19, 2025 End: May 19, 2025 Jocy Betts SILK SCREEN REPAIRER, SILK SCREEN REPAIRER-C Referring Provider Active Start: May 19, 2025 End: May 19, 2025 Team Status: Active Member Role/Relationship Status Dates Dr. Patrice Holland MD Primary care physician Active Team Status: Inactive Member Role/Relationship Status Dates Dr. Patrice Holland MD Primary care physician Active Start: April 22, 2025 End: April 22, 2025 Dr. Patrice Holland MD Referring Provider Active St art: April 22, 2025 End: April 22, 2025 Jocy Betts NP, GABY-C Attending physician Active Start: April 22, 2025 End: April 22, 2025 Team Status: Inactive Member Role/Relationship Status Dates Dr. Patrice Holland MD Primary care physician Active Start: May 19, 2025 End: May 19, 2025 Jocy Betts NP SILK SCREEN REPAIRER-C Attending physician Active Start: May 19, 2025 End: May 19, 2025 Jocy Betts NP, NP-C Referring Provider Active Start: May 19, 2025 End: May 19, 2025 Team Status: Inactive Member Role/Relationship Status Dates Dr. Patrice Holland MD Primary care physician Active Start: August 05, 2025 End: August 05, 2025 Dr. Riley Yao MD Attending physician Active Start: August 05, 2025 End: August 05, 2025 Dr. Riley Yao MD Referring Provider Active Start: August 05, 2025 End: August 05, 2025 FOR RECORDS PERTAINING TO PATIENTS WHO ARE OR HAVE BEEN ENROLLED IN A CHEMICAL DEPENDENCY/SUBSTANCEABUSE PROGRAM, SOME INFORMATION MAY BE OMITTED. This clinical summary was aggregated from multiple sources. Caution should be exercised in using it in the provision of clinical care. This summary normalizes information from multiple sources, and as a consequence, information in this document may materially change the coding, format and clinical context of patient data. In addition, data may be omitted in some cases. CLINICAL DECISIONS SHOULD BE BASED ON THE PRIMARY CLINICAL RECORDS. [facility] [employer] [facility] provides no warranty or guarantee of the accuracy or completeness of information in this document.
== END | disposition home or self-care (01) ==
LOC: US 14:05
PROVIDERS: PCP Family Medicine; Referring Provider Nurse Practitioner Women's Health; Visit Provider Nurse Practitioner Women's Health
DX: R10.21 Pelvic and perineal pain right side (principal)
CPT/HCPCS: 76830; 76856